=== PATIENT | male | born 1970 | race Caucasian/White ===

== ENCOUNTER → 2018-04-19 | Outpatient (CLI) | payer OTHER ==
--- NOTE | 2018-04-19 16:40 | US ---
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 NPO, No pain EXAM MEASUREMENTS: Liver Length: 17.6 cm Gallbladder Wall: 0.2 cm CBD: 0.4 cm CHD: 0.4 cm Right Kidney: 10.9 x 6.5 x 4.7 cm Pancreas: Main pancreatic duct= 2.3 mm which is upper limits of normal, normal proximal body 2 mm. Pancreas Appears echogenic in appearance. Liver: Liver size is enlarged, normal less than 15.5 cm. No prominent masses or lesions visualized Gallbladder: wnl, folds seen Evidence for sonographic Coffey's sign: neg CBD: wnl CHD: wnl Right Kidney: wnl IMPRESSION: 1. Slight prominence of the pancreatic duct. 2. Hepatomegaly
== END | disposition home or self-care (01) ==
LOC: RADUSWWP 09:26
PROVIDERS: ATTEND Physician Assistant
DX: R16.0 Hepatomegaly, not elsewhere classified (principal); B18.2 Chronic viral hepatitis C
CPT/HCPCS: 76705

== ENCOUNTER → 2018-07-18 | Outpatient (CLI) | payer BC ==
[2018-07-18 09:12] LABS: Basophils % (A) 0 %; Eosinophils # (A) 0.4 k/uL (0-0.7); Eosinophils % (A) 5 %; HCT 49.3 % (39.0-53.0); HGB 16.6 gm/dL (13.0-17.5); Lymphocytes % (A) 25 %; MCH 31.5 pg (25.0-35.0); MCHC 33.7 g/dL (31.0-37.0); MCV 93.5 fL (80.0-100.0); Mean Platelet Volume 8.9; Monocytes # (A) 0.4 k/uL (0-1.0); Monocytes % (A) 5 %; Neutrophils # (A) 4.9 k/uL (1.3-7.7); Neutrophils % (A) 63 %; Platelet Count 120 k/uL (150-450); RBC 5.27 m/uL (4.30-5.90); RDW 13.7 % (11.5-15.5); WBC 7.9 k/uL (3.8-10.6)
[2018-07-18 09:30] LABS: INR 1.1 (<1.2); Prothrombin Time 11.9 sec (9.0-12.0)
[2018-07-18 18:51] LABS: Albumin 4.5 g/dL (3.80-4.90); Albumin/Globulin Ratio 1.55 (1.60-3.17); Bilirubin, Conjugated 0.2 mg/dL (0.20-0.40); Bilirubin,Unconjugated 0.5 mg/dL; Globulin 2.9 g/dL (1.6-3.3); Total Bilirubin 0.7 mg/dL (0.3-1.2); Total Protein 7.4 g/dL (6.2-8.2)
[2018-07-19 15:11] LABS: Hepatits C Virus RNA DETECTED (Not detected); LOG HCV IU/mL 6.83 (<1.08)
== END | disposition home or self-care (01) ==
LOC: LABWHC1 08:21
PROVIDERS: ATTEND Physician Assistant
DX: B18.2 Chronic viral hepatitis C (principal)
CPT/HCPCS: 36415; 80076; 85025; 85610; 87522

== ENCOUNTER → 2018-11-01 | Outpatient (CLI) | payer BC ==
[2018-11-01 10:35] LABS: Basophils % (A) 1 %; Eosinophils # (A) 0.4 k/uL (0-0.7); Eosinophils % (A) 6 %; HCT 47.8 % (39.0-53.0); HGB 16.2 gm/dL (13.0-17.5); Lymphocytes # (A) 2.4 k/uL (1.0-4.8); Lymphocytes % (A) 37 %; MCH 30.6 pg (25.0-35.0); MCHC 33.8 g/dL (31.0-37.0); MCV 90.6 fL (80.0-100.0); Mean Platelet Volume 9.3; Monocytes # (A) 0.3 k/uL (0-1.0); Monocytes % (A) 5 %; Neutrophils # (A) 3.3 k/uL (1.3-7.7); Neutrophils % (A) 50 %; Platelet Count 129 k/uL (150-450); RBC 5.28 m/uL (4.30-5.90); RDW 14.7 % (11.5-15.5); WBC 6.5 k/uL (3.8-10.6)
[2018-11-01 16:29] LABS: ALT 25 U/L (10-49); AST 35 U/L (14-35); Albumin/Globulin Ratio 2.05 (1.60-3.17); Alkaline Phosphatase 72 U/L (41-126); Bilirubin, Conjugated <0.20 mg/dL (0.20-0.40); Globulin 2.2 g/dL (1.6-3.3); Total Bilirubin 0.4 mg/dL (0.2-1.2); Total Protein 6.7 g/dL (6.2-8.2)
[2018-11-02 14:39] LABS: Hepatits C Virus RNA DETECTED (Not detected); Hepatits C Virus RNA, Quant <12 IU/mL (<12); LOG HCV IU/mL <1.08 (<1.08)
== END ==
LOC: LABWHC1 09:37
PROVIDERS: ATTEND Physician Assistant
DX: B18.2 Chronic viral hepatitis C (principal)
CPT/HCPCS: 36415; 80076; 85025; 87522

== ENCOUNTER → 2019-02-20 | Outpatient (CLI) | payer BC ==
[2019-02-20 09:17] LABS: Basophils % (A) 0 %; Eosinophils # (A) 0.4 k/uL (0-0.7); Eosinophils % (A) 5 %; HCT 46.2 % (39.0-53.0); HGB 16.3 gm/dL (13.0-17.5); Lymphocytes # (A) 2.2 k/uL (1.0-4.8); Lymphocytes % (A) 28 %; MCH 32.5 pg (25.0-35.0); MCHC 35.4 g/dL (31.0-37.0); MCV 91.7 fL (80.0-100.0); Mean Platelet Volume 8.7; Monocytes # (A) 0.3 k/uL (0-1.0); Monocytes % (A) 4 %; Neutrophils # (A) 4.8 k/uL (1.3-7.7); Neutrophils % (A) 61 %; Platelet Count 127 k/uL (150-450); RBC 5.03 m/uL (4.30-5.90); WBC 7.9 k/uL (3.8-10.6)
[2019-02-20 15:56] LABS: ALT 26 U/L (10-49); AST 31 U/L (14-35); Albumin/Globulin Ratio 2.14 (1.60-3.17); Alkaline Phosphatase 70 U/L (41-126); Bilirubin, Conjugated <0.20 mg/dL (0.20-0.40); Globulin 2.1 g/dL (1.6-3.3); Total Bilirubin 0.3 mg/dL (0.2-1.2); Total Protein 6.6 g/dL (6.2-8.2)
[2019-02-21 13:42] LABS: Hepatits C Virus RNA Not detected (Not detected); Hepatits C Virus RNA, Quant <12 IU/mL (<12); LOG HCV IU/mL <1.08 (<1.08)
== END | disposition home or self-care (01) ==
LOC: LABWHC1 08:51
PROVIDERS: ATTEND Physician Assistant
DX: B18.2 Chronic viral hepatitis C (principal)
CPT/HCPCS: 36415; 80076; 82105; 85025; 87522

== ENCOUNTER 2020-08-30 19:06 | Emergency (ER) | payer BC, OTHER ==
[2020-08-30 19:36] VITALS: BP 142/98; PULSE 71; RESP 20; TEMP 98
[2020-08-30] MEDS ORDERED: DIPH,PERTUS(ACELL)TETVAC-LF 0.5 ML VIAL IM ONE (20:47)
--- NOTE | 2020-08-30 20:48 | ED ---
Wound/Laceration HPI - General Chief Complaint: Wound/Laceration Stated Complaint: Male Time Seen by Provider: 08/30/20 20:36 Source: patient Mode of arrival: ambulatory Limitations: no limitations - History of Present Illness Initial Comments: 50yo presenting for right scrotal laceration. pt states that he was shaving--when he knicked his right scrotum. denies additional complaints. bleeding controlled per patient. unsure of last tdap. - Related Data Previous Rx's Medication Instructions Recorded Cephalexin [Keflex] 500 mg PO Q8HR 7 Days #21 cap 08/30/20 Allergies Allergy/AdvReac Type Severity Reaction Status Date / Time No Known Allergies Allergy Verified 08/30/20 19:36 Review of Systems ROS Statement: Those systems with pertinent positive or pertinent negative responses have been documented in the HPI. ROS Other: All systems not noted in ROS Statement are negative. Past Medical History Past Medical History: Hypertension History of Any Multi-Drug Resistant Organisms: None Reported Past Surgical History: Orthopedic Surgery Additional Past Surgical History / Comment(s): rt shoulder Past Psychological History: Bipolar Smoking Status: Current every day smoker Past Alcohol Use History: None Reported Past Drug Use History: None Reported General Exam - General Exam Comments Initial Comments: General: The patient is awake and alert, in no distress, and does not appear acutely ill. Eye: Pupils are equal, round and reactive to light, extra-ocular movements are intact. No nystagmus. There is normal conjunctiva bilaterally. No signs of icterus. Cardiovascular: There is a regular rate and rhythm. No murmur, rub or gallop is appreciated. Respiratory: Lungs are clear to auscultation, respirations are non-labored, breath sounds are equal. No wheezes, stridor, rales, or rhonchi. Gastrointestinal: Soft, non-distended, non-tender abdomen without masses or organomegaly noted. There is no rebound or guarding present. : superficial skin flap < 1 cm circular right scrotum. Musculoskeletal: Normal ROM, no tenderness. Strength 5/5. Sensation intact. Pulses equal bilaterally 2+. Neurological: A&O x 3. CN II-XII intact, There are no obvious motor or sensory deficits. Coordination appears grossly intact. Speech is normal. Skin: Skin is warm and dry and no rashes grossly or lesions are noted. Psychiatric: Cooperative, appropriate mood & affect, normal judgment. Limitations: no limitations Course Vital Signs 08/30/20 19:33 Temperature 98.0 F Pulse Rate 71 Respiratory 20 Rate Blood Pressure 142/98 O2 Sat by Pulse 92 L Oximetry Medical Decision Making - Medical Decision Making 50yo male presenting for cc of scrotal laceration. superficial skin tear. no evidence of deeper injury. no repair needed recommend topical care and f/u if develop redness/signs of infection. pt discharged appearing well. Dr Reich agreeable to care plan. Disposition Clinical Impression: Laceration of scrotum Disposition: HOME SELF-CARE Condition: Good Instructions (If sedation given, give patient instructions): Skin Tear (ED) Additional Instructions: Please use medication as discussed. Please follow-up with family doctor in the next 2 days. Please return to emergency room if the symptoms increase or worsen or for any other concerns. Prescriptions: Cephalexin [Keflex] 500 mg PO Q8HR 7 Days #21 cap Is patient prescribed a controlled substance at d/c from ED?: No Referrals: Flakito Pritchett MD [Primary Care Provider] - 1-2 days Time of Disposition: 20:48
== END 2020-08-30 21:12 | disposition home or self-care (01) ==
LOC: EC 19:06
DX: S31.31XA Laceration without foreign body of scrotum and testes, initial encounter (principal); I10 Essential (primary) hypertension; F31.9 Bipolar disorder, unspecified; F17.200 Nicotine dependence, unspecified, uncomplicated; W26.9XXA Contact with unspecified sharp object(s), initial encounter
CPT/HCPCS: 90471; 90715; 99282

== ENCOUNTER 2020-09-02 08:40 | Emergency (ER) | payer OTHER ==
[2020-09-02 08:45] VITALS: BP 128/99; PULSE 89; RESP 18; TEMP 98
--- NOTE | 2020-09-02 09:08 | ED ---
Nausea/Vomiting/Diarrhea HPI - General Chief complaint: Nausea/Vomiting/Diarrhea Stated complaint: fever/vomiting Time Seen by Provider: 09/02/20 08:46 Source: patient Mode of arrival: ambulatory Limitations: no limitations - History of Present Illness Initial comments: 50-year-old male presenting for chief complaint of nausea chills-sent by work for covid test. pt states that he was nauseated at work feeling like he was going to vomit, he states he had chills at that time but no other associated symptoms. Denies recorded fevers, cough, congestion, abdominal pain, diarrhea, sore throat, rashes. Patient states he needed a test to go back to work. pt states he was not super concerned about the symptoms as he feels he has had this before and it has just gone away. pt has no additional complaints. remaining ROS (-). - Related Data Previous Rx's Medication Instructions Recorded Cephalexin [Keflex] 500 mg PO Q8HR 7 Days #21 cap 08/30/20 Allergies Allergy/AdvReac Type Severity Reaction Status Date / Time No Known Allergies Allergy Verified 09/02/20 08:41 Review of Systems ROS Statement: Those systems with pertinent positive or pertinent negative responses have been documented in the HPI. ROS Other: All systems not noted in ROS Statement are negative. Past Medical History Past Medical History: Hypertension, Prostate Disorder History of Any Multi-Drug Resistant Organisms: None Reported Past Surgical History: Orthopedic Surgery Additional Past Surgical History / Comment(s): rt shoulder Past Psychological History: Bipolar Smoking Status: Current every day smoker Past Alcohol Use History: None Reported Past Drug Use History: None Reported General Exam - General Exam Comments Initial Comments: General: The patient is awake and alert, in no distress, and does not appear acutely ill. Eye: Pupils are equal, round and reactive to light, extra-ocular movements are intact. No nystagmus. There is normal conjunctiva bilaterally. No signs of icterus. Gastrointestinal: Soft, non-distended, non-tender abdomen without masses or organomegaly noted. There is no rebound or guarding present. Musculoskeletal: Normal ROM, no tenderness. Strength 5/5. Sensation intact. Radial and DP pulses equal bilaterally 2+. Neurological: A&O x 3. CN II-XII intact grossly, There are no obvious motor or sensory deficits. Coordination appears grossly intact. Speech is normal. Skin: Skin is warm and dry and no rashes or lesions are noted. Psychiatric: Cooperative, appropriate mood & affect, normal judgment. Limitations: no limitations Course Vital Signs 09/02/20 08:41 Temperature 98 F Pulse Rate 89 Respiratory 18 Rate Blood Pressure 128/99 O2 Sat by Pulse 95 Oximetry Medical Decision Making - Medical Decision Making patient presenting for covid testing due to nausea, vomiting. patient not actively vomiting. no chest pain, dyspnea, cough, abdominal pain or fevers. pt appears nontoxic. swabbed and will be called with results. told to quarantine until results are bck. patient agreeable to care plan and discharge. Disposition Clinical Impression: Chills, Vomiting, Nausea Disposition: HOME SELF-CARE Condition: Good Instructions (If sedation given, give patient instructions): Acute Nausea and Vomiting (ED) Additional Instructions: Please use medication as discussed. Please follow-up with family doctor in the next 2 days.. Please return to emergency room if the symptoms increase or worsen or for any other concerns. Is patient prescribed a controlled substance at d/c from ED?: No Referrals: Flakito Pritchett MD [Primary Care Provider] - 1-2 days Time of Disposition: 09:08
[2020-09-02] MEDS ORDERED: ONDANSETRON ODT 4 MG TAB PO STA (09:18)
== END 2020-09-02 09:24 | disposition home or self-care (01) ==
LOC: EC 08:40
DX: R11.2 Nausea with vomiting, unspecified (principal); R68.83 Chills (without fever); F17.200 Nicotine dependence, unspecified, uncomplicated
CPT/HCPCS: 87635; 99283

== ENCOUNTER 2020-09-30 21:49 | Inpatient (IN) | payer MEDICAID, OTHER ==
[2020-09-30] MEDS ORDERED: ONDANSETRON ODT 4 MG TAB PO STA (22:16)
[2020-09-30] MEDS ORDERED: DICYCLOMINE 10 MG/ML 2 ML AMP IM STA (22:16)
--- NOTE | 2020-09-30 22:16 | ED ---
Psych HPI - General Chief Complaint: Psychiatric Symptoms Stated Complaint: Mental Health Time Seen by Provider: 09/30/20 21:53 Source: patient, EMS, RN notes reviewed, old records reviewed Mode of arrival: EMS Limitations: no limitations - History of Present Illness Initial Comments: This is a 50-year-old male DF for evaluation patient Dese for evaluation of psychiatric illness. Persistent depression suicidal thoughts she does have active thoughts of harming himself. Patient does abuse drugs patient does have history of bipolar disease MD Complaint: suicidal ideation, feels depressed -: unknown Associated Psychiatric Symptoms: depression, suicidal ideation Quality: constant Improves With: none Worsens With: drug use Context: recent drug abuse, not taking psychiatric medications, significant life stressor Associated Symptoms: denies other symptoms Treatments Prior to Arrival: placed on mental health hold If Self Harm: admits thoughts of self harm - Related Data Home Medications Medication Instructions Recorded Confirmed Atorvastatin [Lipitor] 40 mg PO DAILY 10/01/20 10/01/20 Diclofenac Sodium [Voltaren] 75 mg PO AC-BID 10/01/20 10/01/20 Losartan [Cozaar] 50 mg PO DAILY 10/01/20 10/01/20 Metoprolol Succinate (ER) [Toprol 50 mg PO DAILY 10/01/20 10/01/20 Xl] Pantoprazole Sodium [Protonix] 40 mg PO AC-BRKFST 10/01/20 10/01/20 QUEtiapine [SEROquel] 100 mg PO HS 10/01/20 10/01/20 Tamsulosin HCl [Flomax] 0.4 mg PO DAILY 10/01/20 10/01/20 valACYclovir HCL [Valtrex] 1,000 mg PO DAILY 10/01/20 10/01/20 Allergies Allergy/AdvReac Type Severity Reaction Status Date / Time No Known Allergies Allergy Verified 10/01/20 11:53 Review of Systems ROS Statement: Those systems with pertinent positive or pertinent negative responses have been documented in the HPI. ROS Other: All systems not noted in ROS Statement are negative. Past Medical History Past Medical History: Hypertension, Prostate Disorder Additional Past Medical History / Comment(s): colon polyps History of Any Multi-Drug Resistant Organisms: None Reported Past Surgical History: Orthopedic Surgery Additional Past Surgical History / Comment(s): rt shoulder Past Psychological History: Bipolar Smoking Status: Current every day smoker Past Alcohol Use History: None Reported Past Drug Use History: Cocaine, Methamphetamine General Exam Limitations: no limitations General appearance: alert, in no apparent distress, anxious Head exam: Present: atraumatic, normocephalic, normal inspection Eye exam: Present: normal appearance, PERRL, EOMI. Absent: scleral icterus, conjunctival injection, periorbital swelling ENT exam: Present: normal exam, mucous membranes moist Neck exam: Present: normal inspection. Absent: tenderness, meningismus, lymphadenopathy Respiratory exam: Present: normal lung sounds bilaterally. Absent: respiratory distress, wheezes, rales, rhonchi, stridor Cardiovascular Exam: Present: regular rate, normal rhythm, normal heart sounds. Absent: systolic murmur, diastolic murmur, rubs, gallop, clicks GI/Abdominal exam: Present: soft, normal bowel sounds. Absent: distended, tenderness, guarding, rebound, rigid Extremities exam: Present: normal inspection, full ROM, normal capillary refill. Absent: tenderness, pedal edema, joint swelling, calf tenderness Back exam: Present: normal inspection Neurological exam: Present: alert, oriented X3, CN II-XII intact Psychiatric exam: Present: normal affect, normal mood Skin exam: Present: warm, dry, intact, normal color. Absent: rash Course Vital Signs 09/30/20 10/01/20 21:50 03:00 Temperature 98.4 F 98.3 F Pulse Rate 111 H 81 Respiratory 20 20 Rate Blood Pressure 102/80 110/72 O2 Sat by Pulse 100 97 Oximetry - Reevaluation(s) Reevaluation #1: 10/01/20 00:12 medical record is reviewed Reevaluation #2: 10/01/20 00:12 medically clear for psychiatric evaluation Reevaluation #3: 10/01/20 00:12 patient is with abdominal pain, persistent cramping feeling better with medications Medical Decision Making - Medical Decision Making 50 male will be admitted for psychiatric evaluation and treatment - Lab Data Result diagrams: 10/01/20 07:00 10/01/20 07:00 Lab Results 09/30/20 10/01/20 Range/Units 23:16 01:10 Urine Opiates Screen Not Detected (NotDetected) Ur Oxycodone Screen Not Detected (NotDetected) Urine Methadone Screen Not Detected (NotDetected) Ur Propoxyphene Screen Not Detected (NotDetected) Ur Barbiturates Screen Not Detected (NotDetected) U Tricyclic Antidepress Not Detected (NotDetected) Ur Phencyclidine Scrn Not Detected (NotDetected) Ur Amphetamines Screen Not Detected (NotDetected) U Methamphetamines Scrn Detected H (NotDetected) U Benzodiazepines Scrn Not Detected (NotDetected) Urine Cocaine Screen Detected H (NotDetected) U Marijuana (THC) Screen Not Detected (NotDetected) Coronavirus (PCR) Not Detected (Not Detectd) Disposition Clinical Impression: Depression, Suicidal ideation Disposition: TRANSFER TO PSYCH HOSP/UNIT Condition: Fair Is patient prescribed a controlled substance at d/c from ED?: No
[2020-10-01 00:26] LABS: Amphetamine Screen,Urine Not Detected (NotDetected); Barbiturate Screen,Urine Not Detected (NotDetected); Benzodiazepines Screen,Urine Not Detected (NotDetected); Cocaine Screen,Urine Detected (NotDetected); Methadone Screen, Urine Not Detected (NotDetected); Opiate Screen,Urine Not Detected (NotDetected); Oxycodone Screen, Urine Not Detected (NotDetected); Phencyclidine Screen,Urine Not Detected (NotDetected); Tricyclic Antidepressant,Urine Not Detected (NotDetected); Urn Cannabinoid Scrn Not Detected (NotDetected)
[2020-10-01] MEDS ORDERED: ACETAMINOPHEN TAB 325 MG TAB PO PRN (02:02)
[2020-10-01] MEDS: LORazepam 1 MG TAB PO PRN ×3 (04:09→19:15)
[2020-10-01 07:54] LABS: Basophils # (A) 0.1 k/uL (0-0.2); Basophils % (A) 1 %; Eosinophils # (A) 0.5 k/uL (0-0.7); Eosinophils % (A) 6 %; HGB 16.1 gm/dL (13.0-17.5); Lymphocytes # (A) 1.8 k/uL (1.0-4.8); Lymphocytes % (A) 21 %; MCH 32.5 pg (25.0-35.0); MCV 92.9 fL (80.0-100.0); Mean Platelet Volume 9.1; Monocytes # (A) 0.6 k/uL (0-1.0); Monocytes % (A) 6 %; Neutrophils # (A) 5.7 k/uL (1.3-7.7); Neutrophils % (A) 65 %; Platelet Count 128 k/uL (150-450); RBC 4.95 m/uL (4.30-5.90); RDW 13.2 % (11.5-15.5); WBC 8.7 k/uL (3.8-10.6)
[2020-10-01] MEDS ORDERED: MAG HYDROX/AL HYDROX/SIMETH 30 ML CUP PO PRN (08:00)
[2020-10-01 08:05] LABS: ALT 266 U/L (4-49); AST 203 U/L (17-59); African American GFR (CKD) >90 (>60 ml/min/1.73 sqM); Albumin 4.3 g/dL (3.5-5.0); Alkaline Phosphatase 62 U/L (38-126); Anion Gap 6 mmol/L; Blood Urea Nitrogen 11 mg/dL (9-20); Calcium 9.6 mg/dL (8.4-10.2); Carbon Dioxide 28 mmol/L (22-30); Chloride 108 mmol/L (98-107); Cholesterol 107 mg/dL (<200); Glucose 101 mg/dL (74-99); HDL Cholesterol 40 mg/dL (40-60); LDL Cholesterol,Calculated 50 mg/dL (0-99); Non-African American GFR(CKD) >90 (>60 ml/min/1.73 sqM); Potassium 4.3 mmol/L (3.5-5.1); Sodium 142 mmol/L (137-145); Total Bilirubin 1.1 mg/dL (0.2-1.3); Total Protein 7.5 g/dL (6.3-8.2); Triglycerides 87 mg/dL (<150)
[2020-10-01] MEDS ORDERED: MAGNESIUM HYDROXIDE 2,400 MG/10 ML CUP PO PRN (09:00)
[2020-10-01] MEDS: NICOTINE 14MG/24HR PATCH TRANSDERM SCH (10:07)
[2020-10-01] MEDS ORDERED: haloperidoL 5 MG TAB PO PRN (11:49)
[2020-10-01] MEDS ORDERED: HALOPERIDOL LACTATE 5 MG/ML 1 ML VIAL IM PRN (11:49)
--- NOTE | 2020-10-01 11:59 | P.HP ---
Psychiatric H&P - . H&P Date: 10/01/20 History & Physical: Allergies Allergy/AdvReac Type Severity Reaction Status Date / Time No Known Allergies Allergy Verified 09/30/20 21:56 Vital Signs Temp 97.7 F 10/01/20 04:17 Pulse 87 10/01/20 04:17 Resp 20 10/01/20 04:17 BP 120/88 10/01/20 04:17 Pulse Ox 94 L 10/01/20 04:17 Intake & Output 09/30/20 10/01/20 10/01/20 18:59 06:59 18:59 Weight 102.512 kg Laboratory Last Values WBC 8.7 k/uL (3.8-10.6) 10/01/20 07:00 RBC 4.95 m/uL (4.30-5.90) 10/01/20 07:00 Hgb 16.1 gm/dL (13.0-17.5) 10/01/20 07:00 Hct 46.0 % (39.0-53.0) 10/01/20 07:00 MCV 92.9 fL (80.0-100.0) 10/01/20 07:00 MCH 32.5 pg (25.0-35.0) 10/01/20 07:00 MCHC 35.0 g/dL (31.0-37.0) 10/01/20 07:00 RDW 13.2 % (11.5-15.5) 10/01/20 07:00 Plt Count 128 k/uL (150-450) L 10/01/20 07:00 MPV 9.1 10/01/20 07:00 Neutrophils % 65 % 10/01/20 07:00 Lymphocytes % 21 % 10/01/20 07:00 Monocytes % 6 % 10/01/20 07:00 Eosinophils % 6 % 10/01/20 07:00 Basophils % 1 % 10/01/20 07:00 Neutrophils # 5.7 k/uL (1.3-7.7) 10/01/20 07:00 Lymphocytes # 1.8 k/uL (1.0-4.8) 10/01/20 07:00 Monocytes # 0.6 k/uL (0-1.0) 10/01/20 07:00 Eosinophils # 0.5 k/uL (0-0.7) 10/01/20 07:00 Basophils # 0.1 k/uL (0-0.2) 10/01/20 07:00 Sodium 142 mmol/L (137-145) 10/01/20 07:00 Potassium 4.3 mmol/L (3.5-5.1) 10/01/20 07:00 Chloride 108 mmol/L (98-107) H 10/01/20 07:00 Carbon Dioxide 28 mmol/L (22-30) 10/01/20 07:00 Anion Gap 6 mmol/L 10/01/20 07:00 BUN 11 mg/dL (9-20) 10/01/20 07:00 Creatinine 0.94 mg/dL (0.66-1.25) 10/01/20 07:00 Est GFR (CKD-EPI)AfAm >90 (>60 ml/min/1.73 sqM) 10/01/20 07:00 Est GFR (CKD-EPI)NonAf >90 (>60 ml/min/1.73 sqM) 10/01/20 07:00 Glucose 101 mg/dL (74-99) H 10/01/20 07:00 Calcium 9.6 mg/dL (8.4-10.2) 10/01/20 07:00 Total Bilirubin 1.1 mg/dL (0.2-1.3) 10/01/20 07:00 AST 203 U/L (17-59) H 10/01/20 07:00 ALT 266 U/L (4-49) H 10/01/20 07:00 Alkaline Phosphatase 62 U/L (38-126) 10/01/20 07:00 Total Protein 7.5 g/dL (6.3-8.2) 10/01/20 07:00 Albumin 4.3 g/dL (3.5-5.0) 10/01/20 07:00 Triglycerides 87 mg/dL (<150) 10/01/20 07:00 Cholesterol 107 mg/dL (<200) 10/01/20 07:00 LDL Cholesterol, Calc 50 mg/dL (0-99) 10/01/20 07:00 HDL Cholesterol 40 mg/dL (40-60) 10/01/20 07:00 TSH 0.958 mIU/L (0.465-4.680) 10/01/20 07:00 Urine Opiates Screen Not Detected (NotDetected) 09/30/20 23:16 Ur Oxycodone Screen Not Detected (NotDetected) 09/30/20 23:16 Urine Methadone Screen Not Detected (NotDetected) 09/30/20 23:16 Ur Propoxyphene Screen Not Detected (NotDetected) 09/30/20 23:16 Ur Barbiturates Screen Not Detected (NotDetected) 09/30/20 23:16 U Tricyclic Antidepress Not Detected (NotDetected) 09/30/20 23:16 Ur Phencyclidine Scrn Not Detected (NotDetected) 09/30/20 23:16 Ur Amphetamines Screen Not Detected (NotDetected) 09/30/20 23:16 U Methamphetamines Scrn Detected (NotDetected) H 09/30/20 23:16 U Benzodiazepines Scrn Not Detected (NotDetected) 09/30/20 23:16 Urine Cocaine Screen Detected (NotDetected) H 09/30/20 23:16 U Marijuana (THC) Screen Not Detected (NotDetected) 09/30/20 23:16 Coronavirus (PCR) Not Detected (Not Detectd) 10/01/20 01:10 10/01/20 11:51 IDENTIFYING DATA: Patient is a 50-year-old male who is currently living at a three-quarter house, is and has no kids and 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 HPI: Patient presented to the hospital yesterday and was complaining of depression and suicidal thoughts in the ER. Patient admitted to having not taken his medications at home and patient's UDS was positive for methamphetamine and cocaine. His liver function tests were elevated. Patient was seen today on the unit and agreeable to seek drug in the office. He had claimed that he "relapsed on crack and math" and states that he was sober for 90 days beforehand. He states that he used for only 1 day approximately $150 worth of drugs combined. He states that he became paranoid afterwards in the hotel that he was staying at and call the garment inspector to check on the back window as he believes that someone was trying to get into his place. He states that he felt "stupid" and claims that he came to the hospital afterwards to seek help. He states that he is feeling depressed and irritable and "cranky" today. He appeared to be fairly impulsive and states that he has a history of bipolar disorder and stopped taking his Seroquel about 3 months ago. He states that he does have some anxiety. He is denying any paranoia at this time. He states that his sleep has been fair and appetite as been poor. Patient denies any suicidal or homicidal ideations intent or plan. At this time patient denies any auditory or visual hallucinations. Patient denies any flight of ideas racing thoughts and increased in goal directed behavior. Patient admits to using methamphetamine and cocaine as listed above. He states that he does smoke cigarettes daily. PAST PSYCHIATRIC HISTORY: Patient states that he has a history of bipolar d isorder. He claimed that he has been on a high dose of Seroquel in the past however that has made him too lethargic however did control his symptoms. He states that he has been hospitalized several times in the past however his last psychiatric hospitalization was in [place] over a year ago. Patient denies any psychiatric outpatient follow-up. Patient denies any history of suicide attempts in the past. PMH: Hypertension and prostate disorder ALLERGIES: as per EMR CHEMICAL DEPENDENCY HISTORY: as per HPI FAMILY PSYCHIATRIC/SUBSTANCE USE HISTORY: Claims that his mother has bipolar disorder SOCIAL HISTORY: Patient was born and raised in [facility]. He states that he completed his GED after dropping out of school. He claims that he has had several legal problems in the past and has been to skilled nursing and senior living including for larceny, robbery and assault. 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 MENTAL STATUS EXAM: General Appearance: Patient appears to be tall, well-built, stated age is alert, directable, yet is irritable at times. Patient appears to have poor hygiene and grooming. Behavior: Patient is seated without any agitated behavior. Irritable at times Speech: Patient's speech is fluent and nonpressured. Mood/Affect: Patient reports their mood is depressed and irritable, affect is congruent Suicidality/Homicidality: Patient denies having any homicidal ideation intent or plan. Denies any suicidal ideations intent or plan Perceptions: Patient denies any visual hallucinations and denies any auditory hallucinations Though content/process: There is no evidence of any delusional thought content and thought process is linear and goal-directed. Memory and concentration: AOX3, grossly intact for the purposes of this session. Can spell "WORLD" backwards Judgment and insight: poor STRENGTHS/WEAKNESSES: strength is that patient is resilient. Weakness is that patient has poor judgment and is impulsive INTELLECT: average IMPRESSIONS: Bipolar disorder, currently depressed Methamphetamine abuse Cocaine abuse Nicotine dependence PLAN: -Patient is admitted under voluntary status to MHU for stabilization of psychiatric symptoms and safety. Patient has signed adult voluntary form and medication consent and is placed in patient's chart. -Medications : Will start patient on Seroquel 100 mg daily at bedtime for mood stabilization/depression/insomnia. -Ativan and Haldol PRN for agitation/aggression -Patient was counselled on substance abuse and desired to cut back on use -Patient was informed of the risks, benefits and side effects of the medication and patient verbally consented to taking the medications. Patient signed med consent form and was placed in chart. -Internal Medicine consult to perform medical evaluation and physical. -NRT - nicotine patch -SW on board for discharge planning. Encourage patient to participate in groups to work on coping skills. Patient will likely be going back to the three- quarter house upon discharge. Likely discharge in 2-3 days. 10/01/20 11:55
[2020-10-01] MEDS ORDERED: traZODone HCL 50 MG TAB PO PRN (21:00)
[2020-10-01] MEDS ORDERED: QUEtiapine 100 MG TAB PO SCH (21:00)
[2020-10-01 23:39] LABS: Estimated Average Glucose 108.28; Hemoglobin A1C 5.4 % (4.0-6.0)
--- NOTE | 2020-10-02 01:39 | P.CONS ---
History of Present Illness - Reason for Consult Consult date: 10/02/20 - History of Present Illness Patient is a 50-year-old male with a PMH of hypertension, hyperlipidemia, and depression who presented to the emergency room with complaints of depression and suicidal ideation. The patient was admitted to mental health unit where he was seen and evaluated. The patient reports that he continues to feel depressed but denied any additional complaints. He denied smoking tobacco or IV drug use. He also denied chest discomfort, shortness of breath, fever, chills, nausea, vomiting, abdominal pain, diarrhea. He reports compliance with his medications at home. Review of Systems Pertinent positives and negatives as discussed in HPI, a complete review of systems was performed and all other systems are negative. Past Medical History Past Medical History: Hypertension, Prostate Disorder Additional Past Medical History / Comment(s): colon polyps History of Any Multi-Drug Resistant Organisms: None Reported Past Surgical History: Orthopedic Surgery Additional Past Surgical History / Comment(s): rt shoulder Past Anesthesia/Blood Transfusion Reactions: No Reported Reaction Smoking Status: Current every day smoker Medications and Allergies Home Medications Medication Instructions Recorded Confirmed Type Atorvastatin [Lipitor] 40 mg PO DAILY 10/01/20 10/01/20 History Diclofenac Sodium [Voltaren] 75 mg PO AC-BID 10/01/20 10/01/20 History Losartan [Cozaar] 50 mg PO DAILY 10/01/20 10/01/20 History Metoprolol Succinate (ER) [Toprol 50 mg PO DAILY 10/01/20 10/01/20 History Xl] Pantoprazole Sodium [Protonix] 40 mg PO AC-BRKFST 10/01/20 10/01/20 History QUEtiapine [SEROquel] 100 mg PO HS 10/01/20 10/01/20 History Tamsulosin HCl [Flomax] 0.4 mg PO DAILY 10/01/20 10/01/20 History valACYclovir HCL [Valtrex] 1,000 mg PO DAILY 10/01/20 10/01/20 History Allergies Allergy/AdvReac Type Severity Reaction Status Date / Time No Known Allergies Allergy Verified 10/01/20 11:53 Physical Exam Vitals: Vital Signs Temp Pulse Pulse Pulse Resp BP BP 10/01/20 20:29 98.2 F 99 20 133/78 10/01/20 15:14 104 H 16 10/01/20 04:17 97.7 F 87 20 10/01/20 03:00 98.3 F 81 20 110/72 BP Pulse Ox 10/01/20 20:29 10/01/20 15:14 115/70 10/01/20 04:17 120/88 94 L 10/01/20 03:00 97 General: non toxic, no distress, appears at stated age, overweight Derm: no unusual rashes/lesions no unusual ecchymoses, warm, dry Head: atraumatic, normocephalic, symmetric Eyes: EOMI, no lid lag, anicteric sclera, pupils equal round reactive to light ENT: Nose and ears atraumatic, no thrush, no pharyngeal erythema Neck: No thyromegaly, no cervical lymphadenopathy, trachea midline, supple Mouth: no lip lesion, mucus membranes moist Cardiovascular: S1S2 reg, no murmur, positive posterior tibial pulse bilateral, no edema, capillary refill less than 2 seconds Lungs: CTA bilateral, no rhonchi, no rales , no accessory muscle use Abdominal: soft, nontender to palpation, no guarding, no appreciable organomegaly, normal bowel sounds Ext: no gross muscle atrophy, muscle strength 5 out of 5 in all 4 extremities grossly, no contractures, Neuro: CN II-XI grossly intact, light touch intact all 4 extremities, finger to nose within normal limits, Psych: Alert, oriented, appropriate affect Results CBC & Chem 7: 10/01/20 07:00 10/01/20 07:00 Labs: Abnormal Lab Results - Last 24 Hours (Table) 10/01/20 10/01/20 Range/Units 07:00 07:00 Plt Count 128 L (150-450) k/uL Chloride 108 H (98-107) mmol/L Glucose 101 H (74-99) mg/dL AST 203 H (17-59) U/L ALT 266 H (4-49) U/L Assessment and Plan Plan: Hypertension, hyperlipidemia -Continue with home medications Depression with suicidal ideation -As per psychiatry Thrombocytopenia -At baseline Polysubstance abuse -Advised on the importance of cessation Thank you for allowing us to participate in the care of this patient. We will follow peripherally. Do not hesitate to contact us with questions. Someone can be reached from the [facility] hospitalist group at all hours of the day at [phone].
[2020-10-02] MEDS ORDERED: BENZOCAINE/MENTHOL LOZENG 1 EACH LOZENGE MUCOUS MEM PRN (04:31)
[2020-10-02 06:54] VITALS: RESP 16
[2020-10-02] MEDS: ETODOLAC 400 MG TAB PO SCH ×2 (08:38→18:00)
[2020-10-02] MEDS: METOPROLOL SUCCINATE (ER) 50 MG TAB.ER.24H PO SCH (08:39)
[2020-10-02] MEDS: PANTOPRAZOLE 40 MG TABLET PO SCH (08:39)
[2020-10-02] MEDS: TAMSULOSIN 0.4 MG CAP.ER.24H PO SCH (08:39)
[2020-10-02] MEDS: ATORVASTATIN 40 MG TAB PO SCH (08:39)
[2020-10-02] MEDS: valACYclovir HCL 1,000 MG TABLET PO SCH (08:39)
[2020-10-02] MEDS: NICOTINE 14MG/24HR PATCH TRANSDERM SCH (08:39)
[2020-10-02] MEDS: LOSARTAN 50 MG TAB PO SCH (08:39)
[2020-10-02] MEDS: LORazepam 1 MG TAB PO PRN ×2 (08:41→17:22)
[2020-10-02] MEDS: guaiFENesin 600 MG TABLET.ER PO PRN ×2 (08:41→21:52)
--- NOTE | 2020-10-02 12:04 | P.PN ---
Progress Note - Text Progress Note Date: 10/02/20 Interval History: Patient was seen lying in his bed this morning and was directable and agreeable to speak with marketing copywriter in the office. Patient appears to be mildly lethargic today and claims that he did not sleep very well last night. He states that he has frequent awakenings. He claims that he is feeling a bit calmer today and less irritable compared to yesterday. He spoke once again about feeling embarrassed and regrets his relapse. He claims that he is still feeling depressed at this time however is denying any anxiety. He claims that he has not been going to groups thus far. He has a increasing appetite. At this time patient denies any suicidal or homical ideations, intent or plan. Patient denies any auditory, visual hallucinations and denies any paranoia or delusions. Patient denies any side effects from the medications and has been compliant with meds. Mental Status Exam: General Appearance: Patient appears to be tall, well-built, stated age is alert, directable, less irritable today. Patient appears to have poor hygiene and grooming. Behavior: Patient is seated without any agitated behavior. Less irritable today Speech: Patient's speech is fluent and nonpressured. Mood/Affect: Patient reports their mood is depressed and less irritable today, affect is congruent and constricted Suicidality/Homicidality: Patient denies having any homicidal ideation intent or plan. Denies any suicidal ideations intent or plan Perceptions: Patient denies any visual hallucinations and denies any auditory hallucinations Though content/process: There is no evidence of any delusional thought content and thought process is linear and goal-directed. [place] Memory and concentration: AOX3, grossly intact for the purposes of this session. Judgment and insight: poor, improving mildly Assessment Bipolar disorder, currently depressed Methamphetamine abuse Cocaine abuse Nicotine dependence Plan: -Patient continues to meet criteria for inpatient psychiatric admission for symptom stabilization and safety. Patient has signed adult voluntary form and medication consent and was placed in patient's chart. -Medications: Increase Seroquel to 200 mg daily at bedtime for mood stabilization/depression/insomnia. -When necessary Ativan and Haldol for agitation/aggression. -NRT - nicotine patch -SW on board for discharge planning. Encouraged the patient to participate in milieu. likely discharge back to [address] [place] [address] on wednesday.
[2020-10-02] MEDS ORDERED: hydrOXYzine pamoate 25 MG CAP PO PRN (13:58)
[2020-10-02] MEDS: QUEtiapine 200 MG TAB PO SCH (20:54)
[2020-10-03] MEDS: ETODOLAC 400 MG TAB PO SCH ×2 (08:17→18:36)
[2020-10-03] MEDS: ATORVASTATIN 40 MG TAB PO SCH (08:18)
[2020-10-03] MEDS: LOSARTAN 50 MG TAB PO SCH (08:18)
[2020-10-03] MEDS: PANTOPRAZOLE 40 MG TABLET PO SCH (08:18)
[2020-10-03] MEDS: TAMSULOSIN 0.4 MG CAP.ER.24H PO SCH (08:18)
[2020-10-03] MEDS: NICOTINE 14MG/24HR PATCH TRANSDERM SCH (08:18)
[2020-10-03] MEDS: METOPROLOL SUCCINATE (ER) 50 MG TAB.ER.24H PO SCH (08:18)
[2020-10-03] MEDS: valACYclovir HCL 1,000 MG TABLET PO SCH (08:18)
[2020-10-03] MEDS: guaiFENesin 600 MG TABLET.ER PO PRN (08:19)
[2020-10-03] MEDS: LORazepam 1 MG TAB PO PRN ×2 (08:19→15:56)
--- NOTE | 2020-10-03 11:33 | P.PN ---
Progress Note - Text Progress Note Date: 10/03/20 Interval History: Patient was seen lying in his bed this morning and was directable and agreeable to speak with gag writer. Patient preferred today to speak in his room. He claims that he is feeling tired this morning however claims that he slept better last night on the increase in his Seroquel. He states that he spoke with his girlfriend yesterday over the phone who is supportive of him and wants to know when he is going to be released. We spoke about potential discharge tomorrow as patient had many questions about this. He states that his mood is feeling "still depressed" and also spoke about having anxiety today. Patient claims that he is willing to be started on an antidepressant for his mood and anxiety. He claims that he has not been going to groups thus far. He has a increasing appetite. At this time patient denies any suicidal or homical ideations, intent or plan. Patient denies any auditory, visual hallucinations and denies any paranoia or delusions. Patient denies any side effects from the medications and has been compliant with meds. Mental Status Exam: General Appearance: Patient appears to be tall, well-built, stated age is alert, directable, less irritable today. Patient appears to have improving hygiene and grooming. Behavior: Patient is seated without any agitated behavior. Speech: Patient's speech is fluent and nonpressured. Mood/Affect: Patient reports their mood is anxious and depressed, improving mildly, affect is congruent and constricted Suicidality/Homicidality: Patient denies having any homicidal ideation intent or plan. Denies any suicidal ideations intent or plan Perceptions: Patient denies any visual hallucinations and denies any auditory hallucinations Though content/process: There is no evidence of any delusional thought content and thought process is linear and goal-directed. [place] Memory and concentration: AOX3, grossly intact for the purposes of this session. Judgment and insight: poor, improving mildly Assessment Bipolar disorder, currently depressed Methamphetamine abuse Cocaine abuse Nicotine dependence Plan: -Patient continues to meet criteria for inpatient psychiatric admission for symptom stabilization and safety. Patient has signed adult voluntary form and medication consent and was placed in patient's chart. -Medications: Continue with Seroquel to 200 mg daily at bedtime for mood stabilization/depression/insomnia. Added zoloft 50mg daily for mood/anxiety -When necessary Ativan and Haldol for agitation/aggression. -NRT - nicotine patch -SW on board for discharge planning. Encouraged the patient to participate in milieu. likely discharge back to [facility] tomorrow.
[2020-10-03] MEDS ORDERED: DULoxetine HCL 30 MG CAPSULE.DR PO SCH (12:00)
[2020-10-03] MEDS: SERTRALINE 50 MG TAB PO SCH (12:19)
[2020-10-03] MEDS: QUEtiapine 200 MG TAB PO SCH (22:13)
[2020-10-04] MEDS: LORazepam 1 MG TAB PO PRN ×2 (00:33→08:12)
[2020-10-04 01:24] VITALS: BP 126/56; PULSE 72; TEMP 98
[2020-10-04] MEDS: NICOTINE 14MG/24HR PATCH TRANSDERM SCH (08:11)
[2020-10-04] MEDS: ETODOLAC 400 MG TAB PO SCH (08:12)
[2020-10-04] MEDS: LOSARTAN 50 MG TAB PO SCH (08:12)
[2020-10-04] MEDS: SERTRALINE 50 MG TAB PO SCH (08:12)
[2020-10-04] MEDS: PANTOPRAZOLE 40 MG TABLET PO SCH (08:13)
[2020-10-04] MEDS: valACYclovir HCL 1,000 MG TABLET PO SCH (08:13)
[2020-10-04] MEDS: TAMSULOSIN 0.4 MG CAP.ER.24H PO SCH (08:13)
[2020-10-04] MEDS: METOPROLOL SUCCINATE (ER) 50 MG TAB.ER.24H PO SCH (08:13)
[2020-10-04] MEDS: ATORVASTATIN 40 MG TAB PO SCH (08:13)
--- NOTE | 2020-10-04 10:08 | P.DS ---
Providers Date of admission: 10/01/20 01:59 Expected date of discharge: 10/04/20 Attending physician: Derrick Martin MD Consults: 10/01/20 02:02 Consult Physician Routine Consulting Provider: [facility] Consult Reason/Comments: H & P Do you want consulting provider notified?: Already Contacted Primary care physician: Jolly Molina - Discharge Diagnosis(es) (1) Bipolar disorder current episode depressed Current Visit: Yes Status: Acute Priority: High (2) Methamphetamine abuse Current Visit: Yes Status: Acute Priority: High (3) Cocaine abuse Current Visit: Yes Status: Acute Priority: High (4) Nicotine dependence Current Visit: Yes Status: Acute Priority: Low Hospital Course: Admission HPI: Admission note was completed by personal lines underwriter "Patient is a 50-year-old male who is currently living at a [facility], is and has no kids and 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 Patient presented to the hospital yesterday and was complaining of depression and suicidal thoughts in the ER. Patient admitted to having not taken his medications at home and patient's UDS was positive for methamphetamine and cocaine. His liver function tests were elevated. Patient was seen today on the unit and agreeable to seek drug in the office. He had claimed that he "relapsed on crack and math" and states that he was sober for 90 days beforehand. He states that he used for only 1 day approximately $150 worth of drugs combined. He states that he became paranoid afterwards in the hotel that he was staying at and call the sandblast carver to check on the back window as he believes that someone was trying to get into his place. He states that he felt "stupid" and claims that he came to the hospital afterwards to seek help. He states that he is feeling depressed and irritable and "cranky" today. He appeared to be fairly impulsive and states that he has a history of bipolar disorder and stopped taking his Seroquel about 3 months ago. He states that he does have some anxiety. He is denying any paranoia at this time. He states that his sleep has been fair and appetite as been poor. Patient denies any suicidal or homicidal ideations intent or plan. At this time patient denies any auditory or visual hallucinations. Patient denies any flight of ideas racing thoughts and increased in goal directed behavior. Patient admits to using methamphetamine and cocaine as listed above. He states that he does smoke cigarettes daily." Hospital course: Upon admission to the unit patient was initially depressed and suicidal. Patient was however directable and agreeable to commence treatment and signed adult voluntary form. Patient got along well with other patients on the unit and followed unit protocol. Patient was compliant with the medications and denied any side effects throughout hospital course. Patient was started on Seroquel and increased to a dose of 200 mg daily at bedtime for mood stabilization/depression/insomnia. Patient was also started on Zoloft 50 mg daily for mood/anxiety. Patient spoke of his stressors and engaged in therapy both group and individual. Patient was also seen by medical team for history and physical exam. Throughout the course of the hospitalization patient gradually improved with regards to mood, anxiety, sleep and became more future oriented with improved insight and judgment. On the day of discharge patient denied any suicidal or homicidal ideations intent or plan denied any auditory or visual hallucinations. Patient endorsed wanting to live for his sobriety and his future. The patient denied any access to guns or weapons. Patient denied any paranoia and did not endorse any delusions. Patient does have a significant history of substance abuse and was counseled on abstaining from all substances including alcohol and marijuana. Patient claims that he will be going back to his [facility] and maintaining sobriety there in a sober house and declined rehab at this time. Patient was also counseled on the medications and need for regular compliance and was encouraged to follow-up with their outpatient appointment for mental health and also for primary care. Mental status exam: General Appearance: Patient appears to be tall, well-built, stated age is alert, directable, and cooperative. Patient is in no acute distress and has improved hygiene and grooming Behavior: Patient is calmly seated without any agitated behavior. Speech: Patient's speech is fluent and nonpressured. Mood/Affect: Patient reports their mood is "good", affect is congruent Suicidality/Homicidality: Patient denies having any suicidal or homicidal ideation intent or plan. Perceptions: Patient denies any auditory or visual hallucinations. Though content/process: There is no evidence of any delusional thought content and thought process is linear and goal-directed. more future oriented Memory and concentration: AOX3, grossly intact for the purposes of this session. Can spell "WORLD" backwards correctly. Judgment and insight: Chronically impulsive, improved with guarded prognosis Impression: Bipolar disorder, currently depressed Cocaine abuse Methamphetamine abuse Nicotine dependence Plan: -Continue with discharge today as patient has improved and stabilized psychiatrically and is not currently an imminent threat to himself and/or others. Patient will remain at chronically elevated risk for harm to self and/or others due to his impulsivity and polysubstance abuse. -Continue medications: Continue with Seroquel 200 mg daily at bedtime for mood stabilization/insomnia/depression. Continue with Zoloft 50 mg daily for mood/anxiety. -Patient was counseled on the need for medication compliance and appropriate follow-up at mental health and also primary care for medical issues. Patient verbalized understanding and agreed. -Social work to arrange for patient to have transportation back to [facility] today upon discharge. Social work also to arrange for patients follow up appointments with [facility] for psychiatric care along with follow up with primary care provider. -Patient counseled on abstaining from recreational drugs and marijuana and alcohol. Was informed/educated on the adverse effects on their physical and mental health. Patient verbally agreed and understood. Patient was offered substance rehab however declined at this time. -Patient was instructed to return to the hospital or seek immediate medical care if their psychiatric or medical symptoms do worsen or reoccur. Allergies Allergy/AdvReac Type Severity Reaction Status Date / Time No Known Allergies Allergy Verified 10/01/20 11:53 Laboratory Results WBC 8.7 k/uL (3.8-10.6) 10/01/20 07:00 RBC 4.95 m/uL (4.30-5.90) 10/01/20 07:00 Hgb 16.1 gm/dL (13.0-17.5) 10/01/20 07:00 Hct 46.0 % (39.0-53.0) 10/01/20 07:00 MCV 92.9 fL (80.0-100.0) 10/01/20 07:00 MCH 32.5 pg (25.0-35.0) 10/01/20 07:00 MCHC 35.0 g/dL (31.0-37.0) 10/01/20 07:00 RDW 13.2 % (11.5-15.5) 10/01/20 07:00 Plt Count 128 k/uL (150-450) L 10/01/20 07:00 MPV 9.1 10/01/20 07:00 Neutrophils % 65 % 10/01/20 07:00 Lymphocytes % 21 % 10/01/20 07:00 Monocytes % 6 % 10/01/20 07:00 Eosinophils % 6 % 10/01/20 07:00 Basophils % 1 % 10/01/20 07:00 Neutrophils # 5.7 k/uL (1.3-7.7) 10/01/20 07:00 Lymphocytes # 1.8 k/uL (1.0-4.8) 10/01/20 07:00 Monocytes # 0.6 k/uL (0-1.0) 10/01/20 07:00 Eosinophils # 0.5 k/uL (0-0.7) 10/01/20 07:00 Basophils # 0.1 k/uL (0-0.2) 10/01/20 07:00 Sodium 142 mmol/L (137-145) 10/01/20 07:00 Potassium 4.3 mmol/L (3.5-5.1) 10/01/20 07:00 Chloride 108 mmol/L (98-107) H 10/01/20 07:00 Carbon Dioxide 28 mmol/L (22-30) 10/01/20 07:00 Anion Gap 6 mmol/L 10/01/20 07:00 BUN 11 mg/dL (9-20) 10/01/20 07:00 Creatinine 0.94 mg/dL (0.66-1.25) 10/01/20 07:00 Est GFR (CKD-EPI)AfAm >90 (>60 ml/min/1.73 sqM) 10/01/20 07:00 Est GFR (CKD-EPI)NonAf >90 (>60 ml/min/1.73 sqM) 10/01/20 07:00 Glucose 101 mg/dL (74-99) H 10/01/20 07:[address] Glu mg/dL 108.28 10/01/20 07:00 Hemoglobin A1c 5.4 % (4.0-6.0) 10/01/20 07:00 Calcium 9.6 mg/dL (8.4-10.2) 10/01/20 07:00 Total Bilirubin 1.1 mg/dL (0.2-1.3) 10/01/20 07:00 AST 203 U/L (17-59) H 10/01/20 07:00 ALT 266 U/L (4-49) H 10/01/20 07:00 Alkaline Phosphatase 62 U/L (38-126) 10/01/20 07:00 Total Protein 7.5 g/dL (6.3-8.2) 10/01/20 07:00 Albumin 4.3 g/dL (3.5-5.0) 10/01/20 07:00 Triglycerides 87 mg/dL (<150) 10/01/20 07:00 Cholesterol 107 mg/dL (<200) 10/01/20 07:00 LDL Cholesterol, Calc 50 mg/dL (0-99) 10/01/20 07:00 HDL Cholesterol 40 mg/dL (40-60) 10/01/20 07:00 TSH 0.958 mIU/L (0.465-4.680) 10/01/20 07:00 Urine Opiates Screen Not Detected (NotDetected) 09/30/20 23:16 Ur Oxycodone Screen Not Detected (NotDetected) 09/30/20 23:16 Urine Methadone Screen Not Detected (NotDetected) 09/30/20 23:16 Ur Propoxyphene Screen Not Detected (NotDetected) 09/30/20 23:16 Ur Barbiturates Screen Not Detected (NotDetected) 09/30/20 23:16 U Tricyclic Antidepress Not Detected (NotDetected) 09/30/20 23:16 Ur Phencyclidine Scrn Not Detected (NotDetected) 09/30/20 23:16 Ur Amphetamines Screen Not Detected (NotDetected) 09/30/20 23:16 U Methamphetamines Scrn Detected (NotDetected) H 09/30/20 23:16 U Benzodiazepines Scrn Not Detected (NotDetected) 09/30/20 23:16 Urine Cocaine Screen Detected (NotDetected) H 09/30/20 23:16 U Marijuana (THC) Screen Not Detected (NotDetected) 09/30/20 23:16 Coronavirus (PCR) Not Detected (Not Detectd) 10/01/20 01:10 Vital Signs Temp 98.0 F 10/04/20 01:23 Pulse 72 10/04/20 01:23 Resp 16 10/04/20 01:23 BP 126/56 10/04/20 01:23 Pulse Ox 94 L 10/01/20 04:17 Patient Condition at Discharge: Fair Plan - Discharge Summary Discharge Rx Participant: No New Discharge Prescriptions: New QUEtiapine [SEROquel] 200 mg PO HS 30 Days tab Acetaminophen Tab [Tylenol] 650 mg PO Q4HR PRN tab PRN Reason: Pain/Discomfort Nicotine 14Mg/24Hr Patch [Habitrol] 1 patch TRANSDERM DAILY 14 Days patch Sertraline [Zoloft] 50 mg PO DAILY 30 Days tab Continue Tamsulosin HCl [Flomax] 0.4 mg PO DAILY Diclofenac Sodium [Voltaren] 75 mg PO AC-BID Atorvastatin [Lipitor] 40 mg PO DAILY Pantoprazole Sodium [Protonix] 40 mg PO AC-BRKFST Metoprolol Succinate (ER) [Toprol XL] 50 mg PO DAILY valACYclovir HCL [Valtrex] 1,000 mg PO DAILY Losartan [Cozaar] 50 mg PO DAILY Discontinued QUEtiapine [SEROquel] 100 mg PO HS Discharge Medication List Atorvastatin [Lipitor] 40 mg PO DAILY 10/01/20 [History] Diclofenac Sodium [Voltaren] 75 mg PO AC-BID 10/01/20 [History] Losartan [Cozaar] 50 mg PO DAILY 10/01/20 [History] Metoprolol Succinate (ER) [Toprol XL] 50 mg PO DAILY 10/01/20 [History] Pantoprazole Sodium [Protonix] 40 mg PO AC-BRKFST 10/01/20 [History] Tamsulosin HCl [Flomax] 0.4 mg PO DAILY 10/01/20 [History] valACYclovir HCL [Valtrex] 1,000 mg PO DAILY 10/01/20 [History] Acetaminophen Tab [Tylenol] 650 mg PO Q4HR PRN tab 10/04/20 [Rx] Nicotine 14Mg/24Hr Patch [Habitrol] 1 patch TRANSDERM DAILY 14 Days patch 10/04/20 [Rx] QUEtiapine [SEROquel] 200 mg PO HS 30 Days tab 10/04/20 [Rx] Sertraline [Zoloft] 50 mg PO DAILY 30 Days tab 10/04/20 [Rx] Follow up Appointment(s)/Referral(s): Jolly Molina MD [Primary Care Provider] - 1-2 days Activity/Diet/Wound Care/Special Instructions: Activity and diet as tolerated. Avoid the use of street drugs and alcohol. Take all medications as prescribed. When you are in need of refills on your medications please contact your medical provider and/or outpatient psychiatrist to have this done. Please go to scheduled outpatient appointment for aftercare treatment. If symptoms return or become worse, call the crisis line at and/or go to the nearest emergency room for evaluation. During the hospitalization, patient did receive benzodiazepines as needed for anxiety (Ativan) however this was discontinued prior to discharge. Discharge Disposition: OTHER INSTITUTION NOT DEFINED
== END 2020-10-04 12:20 | disposition home or self-care (01) | DRG 885 ==
LOC: EC 21:49 → 3MHU 10-01 01:59
PROVIDERS: ADMIT Psychiatry & Neurology Psychiatry; ATTEND Psychiatry & Neurology Psychiatry
DX: F31.30 Bipolar disorder, current episode depressed, mild or moderate severity, unspecified (principal); R45.851 Suicidal ideations; E78.5 Hyperlipidemia, unspecified; F14.10 Cocaine abuse, uncomplicated; F15.10 Other stimulant abuse, uncomplicated; F17.210 Nicotine dependence, cigarettes, uncomplicated; F41.9 Anxiety disorder, unspecified; G47.00 Insomnia, unspecified; I10 Essential (primary) hypertension; Z65.3 Problems related to other legal circumstances; Z79.899 Other long term (current) drug therapy; Z81.8 Family history of other mental and behavioral disorders; Z87.19 Personal history of other diseases of the digestive system
CPT/HCPCS: 80053; 80061; 80306; 82075; 83036; 84443; 85025; 87635; 96372; 99285

== ENCOUNTER 2020-10-07 06:28 | Inpatient (IN) | payer MEDICAID, OTHER ==
--- NOTE | 2020-10-07 07:28 | ED ---
General Adult HPI - General Chief complaint: Psychiatric Symptoms Stated complaint: Mental Health Time Seen by Provider: 10/07/20 06:55 Source: patient, RN notes reviewed, old records reviewed Mode of arrival: ambulatory Limitations: no limitations - History of Present Illness Initial comments: This is a 50-year-old male who presents emergency department stating that he is suicidal and he is hearing voices that are telling him to kill himself. Patient states he left on Wednesday after being admitted to the hospital for psychiatric reasons and he went back and started doing crack on Wednesday is well as yesterday. Patient states he tried to jump in front of traffic but he was unsuccessful. Patient denies any overdose attempt. Patient denies any other attempt committing suicide. Patient denies any physical complaints today. Patient denies any fever chills or cough. Patient denies any chest pain difficulty breathing shortness of breath. Patient has abdominal pain patient denies nausea vomiting diarrhea. Patient states she got the first of 2 scruggs virus vaccine shots - Related Data Home Medications Medication Instructions Recorded Confirmed Atorvastatin [Lipitor] 40 mg PO DAILY 10/01/20 10/07/20 Diclofenac Sodium [Voltaren] 75 mg PO AC-BID 10/01/20 10/07/20 Losartan [Cozaar] 50 mg PO DAILY 10/01/20 10/07/20 Metoprolol Succinate (ER) [Toprol 50 mg PO DAILY 10/01/20 10/07/20 XL] Pantoprazole Sodium [Protonix] 40 mg PO AC-BRKFST 10/01/20 10/07/20 Tamsulosin HCl [Flomax] 0.4 mg PO DAILY 10/01/20 10/07/20 valACYclovir HCL [Valtrex] 1,000 mg PO DAILY 10/01/20 10/07/20 Previous Rx's Medication Instructions Recorded Acetaminophen Tab [Tylenol] 650 mg PO Q4HR PRN tab 10/04/20 Nicotine 14Mg/24Hr Patch [Habitrol] 1 patch TRANSDERM DAILY 14 Days 10/04/20 patch QUEtiapine [SEROquel] 200 mg PO HS 30 Days tab 10/04/20 Sertraline [Zoloft] 50 mg PO DAILY 30 Days tab 10/04/20 Allergies Allergy/AdvReac Type Severity Reaction Status Date / Time No Known Allergies Allergy Verified 10/07/20 08:11 Review of Systems ROS Statement: Those systems with pertinent positive or pertinent negative responses have been documented in the HPI. ROS Other: All systems not noted in ROS Statement are negative. Past Medical History Past Medical History: Hypertension, Prostate Disorder Additional Past Medical History / Comment(s): colon polyps History of Any Multi-Drug Resistant Organisms: None Reported Past Surgical History: Orthopedic Surgery Additional Past Surgical History / Comment(s): rt shoulder Past Anesthesia/Blood Transfusion Reactions: No Reported Reaction Past Psychological History: Bipolar Smoking Status: Current every day smoker Past Alcohol Use History: None Reported Past Drug Use History: Cocaine, Methamphetamine General Exam - General Exam Comments Initial Comments: GENERAL: Patient is well-developed and well-nourished. Patient is nontoxic and well- hydrated and is in no acute distress. ENT: Neck is soft and supple. No significant lymphadenopathy is noted. Oropharynx is clear. Moist mucous membranes. Neck has full range of motion without eliciting any pain. EYES: The sclera were anicteric and conjunctiva were pink and moist. Extraocular movements were intact and pupils were equal round and reactive to light. Eyelids were unremarkable. PULMONARY: Unlabored respirations. Good breath sounds bilaterally. No audible rales rhonchi or wheezing was noted. CARDIOVASCULAR: There is a regular rate and rhythm without any murmurs gallops or rubs. ABDOMEN: Soft and nontender with normal bowel sounds. SKIN: Skin is clear with no lesions or rashes and otherwise unremarkable. NEUROLOGIC: Patient is alert and oriented x3. Cranial nerves II through XII are grossly intact. Motor and sensory are also intact. Normal speech, volume and content. Symmetrical smile. MUSCULOSKELETAL: Normal extremities with adequate strength and full range of motion. No lower extremity swelling or edema. No calf tenderness. LYMPHATICS: No significant lymphadenopathy is noted PSYCHIATRIC: Patient states he suicidal. Limitations: no limitations Course Vital Signs 10/07/20 06:39 Temperature 97.8 F Pulse Rate 74 Respiratory 16 Rate Blood Pressure 136/93 O2 Sat by Pulse 92 L Oximetry Medical Decision Making - Medical Decision Making EPS evaluated the patient and the patient was going to be admitted to our psychiatric unit. - Lab Data Lab Results 10/07/20 Range/Units 07:57 Urine Color Dark Yellow Urine Appearance Cloudy (Clear) Urine pH 5.5 (5.0-8.0) Ur Specific [place] 1.020 (1.001-1.035) Urine Protein 1+ H (Negative) Urine Glucose (UA) Negative (Negative) Urine Ketones Negative (Negative) Urine Blood Negative (Negative) Urine Nitrite Negative (Negative) Urine Bilirubin Negative (Negative) Urine Urobilinogen 4.0 (<2.0) mg/dL Ur Leukocyte Esterase Trace H (Negative) Urine RBC 2 (0-5) /hpf Urine WBC 10 H (0-5) /hpf Ur Squamous Epith Cells 1 (0-4) /hpf Urine Bacteria Occasional H (None) /hpf Hyaline Casts 225 H (0-2) /lpf Urine Mucus Few H (None) /hpf Urine Opiates Screen Not Detected (NotDetected) Ur Oxycodone Screen Not Detected (NotDetected) Urine Methadone Screen Not Detected (NotDetected) Ur Propoxyphene Screen Not Detected (NotDetected) Ur Barbiturates Screen Not Detected (NotDetected) U Tricyclic Antidepress Detected H (NotDetected) Ur Phencyclidine Scrn Not Detected (NotDetected) Ur Amphetamines Screen Not Detected (NotDetected) U Methamphetamines Scrn Detected H (NotDetected) U Benzodiazepines Scrn Detected H (NotDetected) Urine Cocaine Screen Detected H (NotDetected) U Marijuana (THC) Screen Not Detected (NotDetected) Disposition Clinical Impression: Crack cocaine use, Depression, Suicidal ideation Disposition: ADMITTED IP TO THIS [facility] Time of Disposition: 08:38
[2020-10-07] MEDS ORDERED: LORazepam 1 MG TAB PO STA (07:56)
[2020-10-07 08:18] LABS: Appearance,Urine Cloudy (Clear); Bacteria,Urine Occasional /hpf; Bilirubin,Urine Negative (Negative); Blood,Urine Negative (Negative); Color,Urine Dark Yellow; Glucose,Urine (UA) Negative (Negative); Hyaline Casts,Urine 225 /lpf (0-2); Ketones,Urine Negative (Negative); Leukocyte Esterase,Urine Trace (Negative); Mucus,Urine Few /hpf; Nitrite,Urine Negative (Negative); PH, Urine 5.5 (5.0-8.0); Protein,Urine 1+ (Negative); RBC,Urine 2 /hpf (0-5); Squamous Epithelial Cell,Urine 1 /hpf (0-4); WBC,Urine 10 /hpf (0-5)
[2020-10-07 08:20] LABS: Cocaine Screen,Urine Detected (NotDetected); Phencyclidine Screen,Urine Not Detected (NotDetected); Urn Cannabinoid Scrn Not Detected (NotDetected)
[2020-10-07 08:21] LABS: Amphetamine Screen,Urine Not Detected (NotDetected); Barbiturate Screen,Urine Not Detected (NotDetected); Benzodiazepines Screen,Urine Detected (NotDetected); Methadone Screen, Urine Not Detected (NotDetected); Opiate Screen,Urine Not Detected (NotDetected); Oxycodone Screen, Urine Not Detected (NotDetected); Tricyclic Antidepressant,Urine Detected (NotDetected)
[2020-10-07] MEDS ORDERED: MAGNESIUM HYDROXIDE 2,400 MG/10 ML CUP PO PRN (09:55)
[2020-10-07] MEDS ORDERED: MAG HYDROX/AL HYDROX/SIMETH 30 ML CUP PO PRN (09:55)
[2020-10-07] MEDS ORDERED: ACETAMINOPHEN TAB 325 MG TAB PO PRN (09:55)
[2020-10-07] MEDS ORDERED: HALOPERIDOL LACTATE 5 MG/ML 1 ML VIAL IM PRN (10:00)
[2020-10-07] MEDS: LOSARTAN 50 MG TAB PO SCH (10:34)
[2020-10-07] MEDS: valACYclovir HCL 1,000 MG TABLET PO SCH (10:35)
[2020-10-07] MEDS: LORazepam 1 MG TAB PO PRN ×2 (10:35→17:51)
[2020-10-07] MEDS: SERTRALINE 50 MG TAB PO SCH (10:35)
[2020-10-07] MEDS: TAMSULOSIN 0.4 MG CAP.ER.24H PO SCH (10:35)
[2020-10-07] MEDS: METOPROLOL SUCCINATE (ER) 50 MG TAB.ER.24H PO SCH (10:37)
[2020-10-07] MEDS: PANTOPRAZOLE 40 MG TABLET PO SCH (10:55)
[2020-10-07] MEDS: NICOTINE 14MG/24HR PATCH TRANSDERM SCH (10:55)
--- NOTE | 2020-10-07 11:17 | P.HP ---
Psychiatric H&P - . H&P Date: 10/07/20 History & Physical: Allergies Allergy/AdvReac Type Severity Reaction Status Date / Time No Known Allergies Allergy Verified 10/07/20 11:00 Vital Signs Temp 97.6 F 10/07/20 10:10 Pulse 71 10/07/20 10:10 Resp 16 10/07/20 10:10 BP 114/76 10/07/20 10:10 Pulse Ox 92 L 10/07/20 09:58 Intake & Output 10/06/20 10/07/20 10/07/20 18:59 06:59 18:59 Weight 101.605 kg 100.896 kg Laboratory Last Values Urine Color Dark Yellow 10/07/20 07:57 Urine Appearance Cloudy (Clear) 10/07/20 07:57 Urine pH 5.5 (5.0-8.0) 10/07/20 07:57 Ur Specific [place] 1.020 (1.001-1.035) 10/07/20 07:57 Urine Protein 1+ (Negative) H 10/07/20 07:57 Urine Glucose (UA) Negative (Negative) 10/07/20 07:57 Urine Ketones Negative (Negative) 10/07/20 07:57 Urine Blood Negative (Negative) 10/07/20 07:57 Urine Nitrite Negative (Negative) 10/07/20 07:57 Urine Bilirubin Negative (Negative) 10/07/20 07:57 Urine Urobilinogen 4.0 mg/dL (<2.0) 10/07/20 07:57 Ur Leukocyte Esterase Trace (Negative) H 10/07/20 07:57 Urine RBC 2 /hpf (0-5) 10/07/20 07:57 Urine WBC 10 /hpf (0-5) H 10/07/20 07:57 Ur Squamous Epith Cells 1 /hpf (0-4) 10/07/20 07:57 Urine Bacteria Occasional /hpf (None) H 10/07/20 07:57 Hyaline Casts 225 /lpf (0-2) H 10/07/20 07:57 Urine Mucus Few /hpf (None) H 10/07/20 07:57 Urine Opiates Screen Not Detected (NotDetected) 10/07/20 07:57 Ur Oxycodone Screen Not Detected (NotDetected) 10/07/20 07:57 Urine Methadone Screen Not Detected (NotDetected) 10/07/20 07:57 Ur Propoxyphene Screen Not Detected (NotDetected) 10/07/20 07:57 Ur Barbiturates Screen Not Detected (NotDetected) 10/07/20 07:57 U Tricyclic Antidepress Detected (NotDetected) H 10/07/20 07:57 Ur Phencyclidine Scrn Not Detected (NotDetected) 10/07/20 07:57 Ur Amphetamines Screen Not Detected (NotDetected) 10/07/20 07:57 U Methamphetamines Scrn Detected (NotDetected) H 10/07/20 07:57 U Benzodiazepines Scrn Detected (NotDetected) H 10/07/20 07:57 Urine Cocaine Screen Detected (NotDetected) H 10/07/20 07:57 U Marijuana (THC) Screen Not Detected (NotDetected) 10/07/20 07:57 Coronavirus (PCR) Not Detected (Not Detectd) 10/07/20 09:00 10/07/20 11:12 IDENTIFYING DATA: Patient is a 50-year-old male who is currently living at a three-quarter house, is and has no kids and 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 HPI: Patient presented to the hospital ER yesterday with complaints of suicidal ideations auditory hallucinations which were telling him to kill himself. According to ER report patient stated that he tried to jump into traffic. Patient was recently discharged from the mental health unit on Wednesday where he was placed on Zoloft and Seroquel. Patient's UDS was positive for TCA, metham phetamine, benzodiazepines and cocaine. Patient was seen today by poem writer and agreed to speak in the office. He claims that he went to go mushroom picker his check from work once he was discharged on Wednesday from the psychiatric unit and states that "I got high after". She states that he spent the weekend purchasing and using crack cocaine approximately $200 worth at a friend's house. He states that he was feeling depressed and wanting to run into traffic. He claims that he is feeling hopeless and worthless. He states that he did not get his medication scripts filled. He was minimizing his drug use. He states his sleep has been poor. He claims that his appetite has been poor. He states that he does have some anxiety. He is denying any paranoia at this time. He states that his sleep has been fair and appetite as been poor. Patient denies any homicidal ideations intent or plan. He claims that he still feeling suicidal ideations over now intend and plan. At this time patient denies any auditory or visual hallucinations. Patient denies any flight of ideas racing thoughts and increased in goal directed behavior. Patient admits to using methamphetamine and cocaine as listed above. He states that he does smoke cigarettes daily. PAST PSYCHIATRIC HISTORY: Patient states that he has a history of bipolar disorder. Patient was last admitted to the mental health unit last week and discharged last Wednesday. He was then on Zoloft 50 mg daily and Seroquel 200 mg daily at bedtime. He states that he has been hospitalized several times in the past. Patient denies any psychiatric outpatient follow-up. Patient denies any history of suicide attempts in the past. PMH: Hypertension and prostate disorder ALLERGIES: as per EMR CHEMICAL DEPENDENCY HISTORY: as per HPI FAMILY PSYCHIATRIC/SUBSTANCE USE HISTORY: Claims that his mother has bipolar disorder SOCIAL HISTORY: Patient was born and raised in [facility]. He states that he completed his GED after dropping out of school. He claims that he has had several legal problems in the past and has been to custodial and residential including for larceny, robbery and assault. 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 MENTAL STATUS EXAM: General Appearance: Patient appears to be tall, well-built, stated age is alert, directable, yet is irritable at times. Patient appears to have poor hygiene and grooming. Behavior: Patient is seated without any agitated behavior. Irritable at times Speech: Patient's speech is fluent and nonpressured. Mood/Affect: Patient reports their mood is depressed and irritable, affect is congruent Suicidality/Homicidality: Patient denies having any homicidal ideation intent or plan. Denies any suicidal ideations intent or plan Perceptions: Patient denies any visual hallucinations and denies any auditory hallucinations Though content/process: There is no evidence of any delusional thought content and thought process is linear and goal-directed. Memory and concentration: AOX3, grossly intact for the purposes of this session. Can spell "WORLD" backwards Judgment and insight: poor/impulsive STRENGTHS/WEAKNESSES: strength is that patient is resilient. Weakness is that patient has poor judgment and is impulsive INTELLECT: average IMPRESSIONS: Bipolar disorder, currently depressed Methamphetamine abuse Cocaine abuse Nicotine dependence PLAN: -Patient is admitted under voluntary status to MHU for stabilization of psychiatric symptoms and safety. Patient has signed adult voluntary form and medication consent and is placed in patient's chart. -Medications : Will start patient on Seroquel 200 mg daily at bedtime for mood stabilization/depression/insomnia, Zoloft 50 mg daily for mood/anxiety. -Ativan and Haldol PRN for agitation/aggression -Patient was counselled on substance abuse and desired to cut back on use -Patient was informed of the risks, benefits and side effects of the medication and patient verbally consented to taking the medications. Patient signed med consent form and was placed in chart. -Internal Medicine consult to perform medical evaluation and physical. -NRT - nicotine patch -SW on board for discharge planning. Encourage patient to participate in groups to work on coping skills. Patient was minimizing his drug use however will continue to encourage patient to go to inpatient rehab. 10/07/20 11:16
--- NOTE | 2020-10-07 13:43 | P.CONS ---
History of Present Illness - Reason for Consult Consult date: 10/07/20 Medical management - Chief Complaint Suicidal ideation - History of Present Illness This is a 50-year-old male with past medical history noted below who presented to the emergency room with suicidal ideation. Patient was evaluated and admitted to the psych unit for further treatment. I was asked to see him for medical management. Patient told me that he is feeling depressed. He does not have any suicidal ideation at this time. He admits abusing cocaine and methamphetamine. No other complaint at this time. Review of Systems Review of system: 14 points review of systems were obtained and were negative except to what were mentioned in the HPI. Past Medical History Past Medical History: Hypertension, Prostate Disorder Additional Past Medical History / Comment(s): colon polyps History of Any Multi-Drug Resistant Organisms: None Reported Past Surgical History: Orthopedic Surgery Additional Past Surgical History / Comment(s): rt shoulder Past Anesthesia/Blood Transfusion Reactions: No Reported Reaction Past Psychological History: Bipolar Smoking Status: Current every day smoker Past Alcohol Use History: None Reported Past Drug Use History: Cocaine, Methamphetamine Medications and Allergies Home Medications Medication Instructions Recorded Confirmed Type Atorvastatin [Lipitor] 40 mg PO DAILY 10/01/20 10/07/20 History Diclofenac Sodium [Voltaren] 75 mg PO AC-BID 10/01/20 10/07/20 History Losartan [Cozaar] 50 mg PO DAILY 10/01/20 10/07/20 History Metoprolol Succinate (ER) [Toprol 50 mg PO DAILY 10/01/20 10/07/20 History XL] Pantoprazole Sodium [Protonix] 40 mg PO AC-BRKFST 10/01/20 10/07/20 History Tamsulosin HCl [Flomax] 0.4 mg PO DAILY 10/01/20 10/07/20 History valACYclovir HCL [Valtrex] 1,000 mg PO DAILY 10/01/20 10/07/20 History Acetaminophen Tab [Tylenol] 650 mg PO Q4HR PRN tab 10/04/20 10/07/20 Rx Nicotine 14Mg/24Hr Patch [Habitrol] 1 patch TRANSDERM DAILY 14 Days 10/04/20 10/07/20 Rx patch QUEtiapine [SEROquel] 200 mg PO HS 30 Days tab 10/04/20 10/07/20 Rx Sertraline [Zoloft] 50 mg PO DAILY 30 Days tab 10/04/20 10/07/20 Rx Allergies Allergy/AdvReac Type Severity Reaction Status Date / Time No Known Allergies Allergy Verified 10/07/20 11:00 Physical Exam Vitals: Vital Signs Temp Pulse Pulse Resp BP BP Pulse Ox 10/07/20 10:10 97.6 F 71 16 114/76 10/07/20 09:58 97.8 F 74 18 136/93 92 L 10/07/20 09:00 18 10/07/20 08:00 18 10/07/20 06:39 97.8 F 74 16 136/93 92 L Intake and Output 10/06/20 10/07/20 10/07/20 22:59 06:59 14:59 Other: Weight 101.605 kg 100.896 kg General: The patient is awake and alert, in no distress Eye: there is normal conjunctiva bilaterally. Neck: The neck is supple, there is no JVD. Cardiovascular: Normal S1-S2, no S3-S4, no murmurs. Respiratory: Lungs clear to auscultation bilaterally Gastrointestinal: Abdomen is soft, nontender Musculoskeletal: There is no pedal edema. Neurological:. Speech is normal. Skin: Skin is warm and dry Results Labs: Abnormal Lab Results - Last 24 Hours (Table) 10/07/20 Range/Units 07:57 Urine Protein 1+ H (Negative) Ur Leukocyte Esterase Trace H (Negative) Urine WBC 10 H (0-5) /hpf Urine Bacteria Occasional H (None) /hpf Hyaline Casts 225 H (0-2) /lpf Urine Mucus Few H (None) /hpf U Tricyclic Antidepress Detected H (NotDetected) U Methamphetamines Scrn Detected H (NotDetected) U Benzodiazepines Scrn Detected H (NotDetected) Urine Cocaine Screen Detected H (NotDetected) Assessment and Plan Assessment: This is a 50-year-old male who is currently admitted to the psych unit for further management of his medical problems noted below 1. Suicidal ideation 2. Bipolar disorder with depressive moment 3. Methamphetamine and cocaine use 4. Essential hypertension 5. Hyperlipidemia 6. Tobacco abuse Today, I reviewed his medication list and lab work results. Patient was counseled extensively regarding tobacco and illicit drug use. Continue current regimen. Psychiatry recommendation regarding depression. Thank you very much for the consultation.
[2020-10-07] MEDS: QUEtiapine 200 MG TAB PO SCH (22:23)
[2020-10-08] MEDS: LORazepam 1 MG TAB PO PRN (02:21)
[2020-10-08] MEDS ORDERED: PANTOPRAZOLE 40 MG TABLET PO SCH (07:30)
[2020-10-08] MEDS: ATORVASTATIN 40 MG TAB PO SCH (07:48)
[2020-10-08] MEDS: PANTOPRAZOLE 40 MG TABLET PO SCH (07:48)
[2020-10-08] MEDS: valACYclovir HCL 1,000 MG TABLET PO SCH ×2 (07:48→07:51)
[2020-10-08] MEDS: TAMSULOSIN 0.4 MG CAP.ER.24H PO SCH (07:48)
[2020-10-08] MEDS: SERTRALINE 50 MG TAB PO SCH (07:49)
[2020-10-08] MEDS: NICOTINE 14MG/24HR PATCH TRANSDERM SCH (07:49)
[2020-10-08] MEDS: LOSARTAN 50 MG TAB PO SCH (07:49)
[2020-10-08] MEDS: haloperidoL 5 MG TAB PO PRN ×3 (08:00→18:20)
[2020-10-08] MEDS: METOPROLOL SUCCINATE (ER) 50 MG TAB.ER.24H PO SCH (08:05)
[2020-10-08] MEDS ORDERED: NICOTINE 14MG/24HR PATCH TRANSDERM SCH (09:00)
[2020-10-08] MEDS: OLANZapine 5 MG TAB PO ONE ×3 (09:51→10:33)
[2020-10-08] MEDS ORDERED: traZODone HCL 50 MG TAB PO PRN (09:57)
[2020-10-08] MEDS ORDERED: OLANZapine 10 MG VIAL IM PRN (09:58)
--- NOTE | 2020-10-08 10:14 | P.PN ---
Progress Note - Text Progress Note Date: 10/08/20 Interval History: Patient was seen [wandering the hallways] and was persistent in speaking with typewriter ribbon winder. Patient was preoccupied with obtaining sleep medications. He appeared to be fairly irritable and distracted. He states that he is not able to sleep "at all" last night. He states that he is not feeling well today due to lack of sleep and claims that he is not going to participate in groups today. He states that he is waiting on the Ativan but wants something else to help him relax. P atient states that he has anxiety and is feeling depressed. He continues to have poor insight and judgment. At this time patient denies any suicidal or homical ideations, intent or plan. Patient denies any auditory, visual hallucinations and denies any paranoia or delusions. Patient denies any side effects from the medications and has been compliant with meds. Mental Status Exam: General Appearance: Patient appears to be tall, well-built, stated age is alert, directable, yet is irritable. Patient appears to have poor hygiene and grooming. Behavior: Patient is seated without any agitated behavior. Irritable at times Speech: Patient's speech is fluent and nonpressured. Mood/Affect: Patient reports their mood is depressed and irritable, affect is congruent and appears to be anxious Suicidality/Homicidality: Patient denies having any homicidal ideation intent or plan. Denies any suicidal ideations intent or plan Perceptions: Patient denies any visual hallucinations and denies any auditory hallucinations Though content/process: There is no evidence of any delusional thought content and thought process is linear and goal-directed. Preoccupied with obtaining medications. Memory and concentration: AOX3, grossly intact for the purposes of this session. Judgment and insight: poor/impulsive Assessment Bipolar disorder, currently depressed Methamphetamine abuse Cocaine abuse Nicotine dependence Plan: -Patient continues to meet criteria for inpatient psychiatric admission for symptom stabilization and safety. Patient has signed [adult voluntary form and] [medication consent] and was placed in patient's chart. -Medications: Continue with Seroquel 200 mg daily at bedtime for mood stabilization/depression/insomnia. Increased Zoloft to 100 mg daily for mood/anxiety. Ordered Zyprexa by mouth 5 mg now for agitation. -When necessary Zyprexa IM and by mouth for agitation/aggression. -NRT - [nicotine patch] -SW on board for discharge planning. Encouraged the patient to participate in milieu. Patient continues to minimize his drug use however will continue to encourage patient to go to inpatient rehab.
[2020-10-08] MEDS: OLANZapine 5 MG TAB PO PRN (15:59)
[2020-10-08] MEDS: QUEtiapine 200 MG TAB PO SCH (21:19)
[2020-10-09] MEDS: NICOTINE 14MG/24HR PATCH TRANSDERM SCH (08:04)
[2020-10-09] MEDS: LOSARTAN 50 MG TAB PO SCH (08:05)
[2020-10-09] MEDS: valACYclovir HCL 1,000 MG TABLET PO SCH ×2 (08:05→09:08)
[2020-10-09] MEDS: ATORVASTATIN 40 MG TAB PO SCH (08:05)
[2020-10-09] MEDS: OLANZapine 5 MG TAB PO PRN ×2 (08:05→17:55)
[2020-10-09] MEDS: TAMSULOSIN 0.4 MG CAP.ER.24H PO SCH (08:05)
[2020-10-09] MEDS: SERTRALINE 100 MG TAB PO SCH (08:05)
[2020-10-09] MEDS: METOPROLOL SUCCINATE (ER) 50 MG TAB.ER.24H PO SCH (08:05)
[2020-10-09] MEDS: PANTOPRAZOLE 40 MG TABLET PO SCH (08:05)
[2020-10-09] MEDS: NICOTINE POLACRILEX 2 MG GUM BUCCAL PRN ×2 (09:17→13:35)
--- NOTE | 2020-10-09 10:19 | P.PN ---
Progress Note - Text Progress Note Date: 10/09/20 Interval History: Patient was seen wandering the hallways and was persistent in speaking with wr iter. The patient came into contract writer's office as soon as another patient was leaving. Today patient appeared to be more awake and less irritable. He was fairly persistent on discharge once again and states that "everything's fine" and continues to minimize his psychiatric condition. He also was minimizing his substance use and states that "I just need to go to groups and I can't quit on my own". He showed very little interest in going to group well on the unit. He states that he was able to sleep better last night on the current medications. He states that his mood has been gradually improving well on the unit. He continues to have poor/superficial insight and judgment. At this time patient denies any suicidal or homical ideations, intent or plan. Patient denies any auditory, visual hallucinations and denies any paranoia or delusions. Patient denies any side effects from the medications and has been compliant with meds. Mental Status Exam: General Appearance: Patient appears to be tall, well-built, stated age is alert, directable, superficial. Patient appears to have improving hygiene and grooming. Behavior: Patient is seated without any agitated behavior. Superficial Speech: Patient's speech is fluent and nonpressured. Mood/Affect: Patient reports their mood is "better", affect is congruent and is constricted Suicidality/Homicidality: Patient denies having any homicidal ideation intent or plan. Denies any suicidal ideations intent or plan Perceptions: Patient denies any visual hallucinations and denies any auditory hallucinations Though content/process: There is no evidence of any delusional thought content and thought process is linear and goal-directed. Preoccupied with discharge today Memory and concentration: AOX3, grossly intact for the purposes of this session. Judgment and insight: poor/impulsive, improving mildly Assessment Bipolar disorder, currently depressed Methamphetamine abuse Cocaine abuse Nicotine dependence Plan: -Patient continues to meet criteria for inpatient psychiatric admission for symptom stabilization and safety. Patient has signed adult voluntary form and medication consent and was placed in patient's chart. -Medications: Continue with Seroquel 200 mg daily at bedtime for mood stabilization/depression/insomnia. Continue with Zoloft to 100 mg daily for mood/anxiety. -When necessary Zyprexa IM and by mouth for agitation/aggression. -NRT - nicotine patch -SW on board for discharge planning. Encouraged the patient to participate in milieu. Patient continues to minimize his drug use and is declining rehab. Likely discharge tomorrow back to [facility] [place].
[2020-10-09] MEDS: haloperidoL 5 MG TAB PO PRN (14:26)
[2020-10-09] MEDS: QUEtiapine 200 MG TAB PO SCH (20:36)
[2020-10-10 06:44] VITALS: RESP 16
[2020-10-10] MEDS: NICOTINE 14MG/24HR PATCH TRANSDERM SCH (08:19)
[2020-10-10] MEDS: ATORVASTATIN 40 MG TAB PO SCH (08:20)
[2020-10-10] MEDS: LOSARTAN 50 MG TAB PO SCH (08:20)
[2020-10-10] MEDS: valACYclovir HCL 1,000 MG TABLET PO SCH (08:20)
[2020-10-10] MEDS: PANTOPRAZOLE 40 MG TABLET PO SCH (08:20)
[2020-10-10] MEDS: METOPROLOL SUCCINATE (ER) 50 MG TAB.ER.24H PO SCH (08:20)
[2020-10-10] MEDS: SERTRALINE 100 MG TAB PO SCH (08:20)
[2020-10-10] MEDS: TAMSULOSIN 0.4 MG CAP.ER.24H PO SCH (08:20)
[2020-10-10] MEDS: OLANZapine 5 MG TAB PO PRN (08:20)
[2020-10-10] MEDS: NICOTINE POLACRILEX 2 MG GUM BUCCAL PRN (08:20)
[2020-10-10 08:25] VITALS: BP 111/74; PULSE 83
--- NOTE | 2020-10-10 08:58 | P.DS ---
Providers Date of admission: 10/07/20 08:03 Expected date of discharge: 10/10/20 Attending physician: Derrick Martin MD Consults: 10/07/20 09:55 Consult Physician Routine Consulting Provider: Norman Physician Consult Reason/Comments: H & P and follow up care. Do you want consulting provider notified?: Yes Primary care physician: Jolly Molina - Discharge Diagnosis(es) (1) Bipolar disorder current episode depressed Current Visit: Yes Status: Acute Priority: High (2) Methamphetamine abuse Current Visit: Yes Status: Acute Priority: High (3) Cocaine abuse Current Visit: Yes Status: Acute Priority: High (4) Nicotine dependence Current Visit: Yes Status: Acute Priority: Low Hospital Course: Admission HPI: Admission note was completed by commercial loan underwriter "Patient is a 50-year-old male who is currently living at a three-quarter house, is and has no kids and 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 Patient presented to the hospital ER yesterday with complaints of suicidal ideations auditory hallucinations which were telling him to kill himself. According to ER report patient stated that he tried to jump into traffic. Patient was recently discharged from the mental health unit on Wednesday where he was placed on Zoloft and Seroquel. Patient's UDS was positive for TCA, methamphetamine, benzodiazepines and cocaine. Patient was seen today by commercial loan underwriter and agreed to speak in the office. 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 She states that he spent the weekend purchasing and using crack cocaine approximately $200 worth at a friend's house. He states that he was feeling depressed and wanting to run into traffic. He claims that he is feeling hopeless and worthless. He states that he did not get his medication scripts filled. He was minimizing his drug use. He states his sleep has been poor. He claims that his appetite has been poor. He states that he does have some anxiety. He is denying any paranoia at this time. He states that his sleep has been fair and appetite as been poor. Patient denies any homicidal ideations intent or plan. He claims that he still feeling suicidal ideations over now intend and plan. At this time patient denies any auditory or visual hallucinations. Patient denies any flight of ideas racing thoughts and increased in goal directed behavior. Patient admits to using methamphetamine and cocaine as listed above. He states that he does smoke cigarettes daily." Hospital course: Upon admission to the unit patient was initially depressed and irritable. Patient was however directable and agreeable to commence treatment and signed adult voluntary form. Patient got along well with other patients on the unit and followed unit protocol. Patient was compliant with the medications and denied any side effects throughout hospital course. Patient was started on his home dose of Seroquel 200 mg daily at bedtime for mood stabilization/depression/insomnia. Patient was also restarted on Zoloft however increased her dose of 100 mg daily for mood/anxiety. Patient spoke of his stressors and engaged in therapy both group and individual. Patient was also seen by medical team for history and physical exam. Throughout the course of the hospitalization patient gradually improved with regards to mood, anxiety, sleep and became more future oriented with improved insight and judgment. On the day of discharge patient denied any suicidal or homicidal ideations intent or plan denied any auditory or visual hallucinations. Patient endorsed wanting to live for his health and future. The patient denied any access to guns or weapons. Patient denied any paranoia and did not endorse any delusions. Patient does have a significant history of substance abuse however was counseled on abstaining from all substances including alcohol and marijuana. Patient was offered however declined inpatient substance-abuse rehab. Patient wanted to continue on living and attending the groups [facility]. Patient was also counseled on the medications and need for regular compliance and was encouraged to follow-up with their outpatient appointment for mental health and also for primary care. Mental status exam: General Appearance: Patient appears to be tall, well-built, stated age is alert, pleasant, and cooperative. Patient is in no acute distress and has improved hygiene and grooming Behavior: Patient is calmly seated without any agitated behavior. Speech: Patient's speech is fluent and nonpressured. Mood/Affect: Patient reports their mood is "better", affect is congruent and constricted Suicidality/Homicidality: Patient denies having any suicidal or homicidal ideation intent or plan. Perceptions: Patient denies any auditory or visual hallucinations. Though content/process: There is no evidence of any delusional thought content and thought process is linear and goal-directed. more future oriented Memory and concentration: AOX3, grossly intact for the purposes of this session. Can spell "WORLD" backwards correctly. Judgment and insight: chronically poor, however has improved with guarded prognosis Impression: Bipolar disorder, currently depressed Methamphetamine abuse Cocaine abuse Nicotine dependence Plan: -Continue with discharge today as patient has improved and stabilized psychiatrically and is not currently an imminent threat to himself and/or others. Patient will remain at chronically elevated risk for harm to self and/or others due to his impulsivity and polysubstance abuse. -Continue medications: Seroquel 200 mg daily at bedtime for mood stabilization/depression/insomnia, Zoloft 100 mg daily for mood/anxiety -Patient was counseled on the need for medication compliance and appropriate follow-up at mental health and also primary care for medical issues. Patient verbalized understanding and agreed. -Social work to arrange for and conduct family meeting to ensure safety upon discharge and answer any questions/concerns. Social work also to arrange for patients follow up appointments with [facility] for psychiatric care along with follow up with primary care provider. -Patient counseled on abstaining from recreational drugs and marijuana and alcohol. Was informed/educated on the adverse effects on their physical and mental health. Patient verbally agreed and understood. Patient was offered substance abuse treatment however declined at this time. Patient will be discharged back to the [facility]. -Patient was instructed to return to the hospital or seek immediate medical care if their psychiatric or medical symptoms do worsen or reoccur. Allergies Allergy/AdvReac Type Severity Reaction Status Date / Time No Known Allergies Allergy Verified 10/07/20 11:00 Laboratory Results Urine Color Dark Yellow 10/07/20 07:57 Urine Appearance Cloudy (Clear) 10/07/20 07:57 Urine pH 5.5 (5.0-8.0) 10/07/20 07:57 Ur Specific [place] 1.020 (1.001-1.035) 10/07/20 07:57 Urine Protein 1+ (Negative) H 10/07/20 07:57 Urine Glucose (UA) Negative (Negative) 10/07/20 07:57 Urine Ketones Negative (Negative) 10/07/20 07:57 Urine Blood Negative (Negative) 10/07/20 07:57 Urine Nitrite Negative (Negative) 10/07/20 07:57 Urine Bilirubin Negative (Negative) 10/07/20 07:57 Urine Urobilinogen 4.0 mg/dL (<2.0) 10/07/20 07:57 Ur Leukocyte Esterase Trace (Negative) H 10/07/20 07:57 Urine RBC 2 /hpf (0-5) 10/07/20 07:57 Urine WBC 10 /hpf (0-5) H 10/07/20 07:57 Ur Squamous Epith Cells 1 /hpf (0-4) 10/07/20 07:57 Urine Bacteria Occasional /hpf (None) H 10/07/20 07:57 Hyaline Casts 225 /lpf (0-2) H 10/07/20 07:57 Urine Mucus Few /hpf (None) H 10/07/20 07:57 Urine Opiates Screen Not Detected (NotDetected) 10/07/20 07:57 Ur Oxycodone Screen Not Detected (NotDetected) 10/07/20 07:57 Urine Methadone Screen Not Detected (NotDetected) 10/07/20 07:57 Ur Propoxyphene Screen Not Detected (NotDetected) 10/07/20 07:57 Ur Barbiturates Screen Not Detected (NotDetected) 10/07/20 07:57 U Tricyclic Antidepress Detected (NotDetected) H 10/07/20 07:57 Ur Phencyclidine Scrn Not Detected (NotDetected) 10/07/20 07:57 Ur Amphetamines Screen Not Detected (NotDetected) 10/07/20 07:57 U Methamphetamines Scrn Detected (NotDetected) H 10/07/20 07:57 U Benzodiazepines Scrn Detected (NotDetected) H 10/07/20 07:57 Urine Cocaine Screen Detected (NotDetected) H 10/07/20 07:57 U Marijuana (THC) Screen Not Detected (NotDetected) 10/07/20 07:57 Coronavirus (PCR) Not Detected (Not Detectd) 10/07/20 09:00 Vital Signs Temp 98.4 F 10/10/20 06:28 Pulse 83 10/10/20 08:23 Resp 16 10/10/20 06:28 BP 111/74 10/10/20 08:23 Pulse Ox 98 10/09/20 08:02 Patient Condition at Discharge: Stable Plan - Discharge Summary Discharge Rx Participant: No New Discharge Prescriptions: New Sertraline [Zoloft] 100 mg PO DAILY 30 Days tab Continue Tamsulosin HCl [Flomax] 0.4 mg PO DAILY Diclofenac Sodium [Voltaren] 75 mg PO AC-BID Atorvastatin [Lipitor] 40 mg PO DAILY Pantoprazole Sodium [Protonix] 40 mg PO AC-BRKFST Metoprolol Succinate (ER) [Toprol XL] 50 mg PO DAILY QUEtiapine [SEROquel] 200 mg PO HS 30 Days tab Acetaminophen Tab [Tylenol] 650 mg PO Q4HR PRN tab PRN Reason: Pain/Discomfort valACYclovir HCL [Valtrex] 1,000 mg PO DAILY Losartan [Cozaar] 50 mg PO DAILY Nicotine 14Mg/24Hr Patch [Habitrol] 1 patch TRANSDERM DAILY 14 Days patch Discontinued Sertraline [Zoloft] 50 mg PO DAILY 30 Days tab Discharge Medication List Atorvastatin [Lipitor] 40 mg PO DAILY 10/01/20 [History] Diclofenac Sodium [Voltaren] 75 mg PO AC-BID 10/01/20 [History] Losartan [Cozaar] 50 mg PO DAILY 10/01/20 [History] Metoprolol Succinate (ER) [Toprol XL] 50 mg PO DAILY 10/01/20 [History] Pantoprazole Sodium [Protonix] 40 mg PO AC-BRKFST 10/01/20 [History] Tamsulosin HCl [Flomax] 0.4 mg PO DAILY 10/01/20 [History] valACYclovir HCL [Valtrex] 1,000 mg PO DAILY 10/01/20 [History] Acetaminophen Tab [Tylenol] 650 mg PO Q4HR PRN tab 10/04/20 [Rx] Nicotine 14Mg/24Hr Patch [Habitrol] 1 patch TRANSDERM DAILY 14 Days patch 10/04/20 [Rx] QUEtiapine [SEROquel] 200 mg PO HS 30 Days tab 10/04/20 [Rx] Sertraline [Zoloft] 100 mg PO DAILY 30 Days tab 10/10/20 [Rx] Follow up Appointment(s)/Referral(s): [facility] - 10/14/20 2:30 pm (Mickie Graham) Jolly Molina MD [Primary Care Provider] - 1-2 days Patient Instructions/Handouts: How to Stop Smoking (DC), Cocaine Abuse (DC), Depression (DC), Suicide Prevention (DC) Activity/Diet/Wound Care/Special Instructions: Activity and diet as tolerated. Avoid the use of street drugs and alcohol. Take all medications as prescribed. When you are in need of refills on your medications please contact your medical provider and/or outpatient psychiatrist to have this done. Please go to scheduled outpatient appointment for aftercare. If symptoms return or become worse call the crisis line at and/or go to the nearest emergency room for an evaluation. Discharge Disposition: HOME SELF-CARE
[2020-10-10 09:16] VITALS: TEMP 98.2
== END 2020-10-10 11:13 | disposition home or self-care (01) | DRG 885 ==
LOC: EC 06:28 → 3MHU 08:03
PROVIDERS: ADMIT Psychiatry & Neurology Psychiatry; ATTEND Psychiatry & Neurology Psychiatry
DX: F31.30 Bipolar disorder, current episode depressed, mild or moderate severity, unspecified (principal); R45.851 Suicidal ideations; E78.5 Hyperlipidemia, unspecified; F14.10 Cocaine abuse, uncomplicated; F15.10 Other stimulant abuse, uncomplicated; F17.210 Nicotine dependence, cigarettes, uncomplicated; F41.9 Anxiety disorder, unspecified; G47.00 Insomnia, unspecified; I10 Essential (primary) hypertension; Z65.3 Problems related to other legal circumstances; Z79.899 Other long term (current) drug therapy; Z81.8 Family history of other mental and behavioral disorders; Z87.19 Personal history of other diseases of the digestive system; Z20.822 Contact with and (suspected) exposure to COVID-19
CPT/HCPCS: 80306; 81001; 82075; 87635; 99285

== ENCOUNTER 2020-10-16 03:26 | Emergency (ER) | payer OTHER ==
[2020-10-16 03:35] VITALS: RESP 18; TEMP 97.8
--- NOTE | 2020-10-16 04:38 | ED ---
Psych HPI - General Chief Complaint: Psychiatric Symptoms Stated Complaint: Mental Health Time Seen by Provider: 10/16/20 03:38 Source: patient Mode of arrival: ambulatory - History of Present Illness MD Complaint: suicidal ideation, feels depressed -: hour(s) Associated Psychiatric Symptoms: depression, suicidal ideation History of same: Yes Quality: getting worse Worsens With: drug use Context: recent drug abuse Associated Symptoms: denies other symptoms - Related Data Home Medications Medication Instructions Recorded Confirmed Atorvastatin [Lipitor] 40 mg PO DAILY 10/01/20 10/16/20 Diclofenac Sodium [Voltaren] 75 mg PO AC-BID 10/01/20 10/16/20 Losartan [Cozaar] 50 mg PO DAILY 10/01/20 10/16/20 Metoprolol Succinate (ER) [Toprol 50 mg PO DAILY 10/01/20 10/16/20 XL] Pantoprazole Sodium [Protonix] 40 mg PO AC-BRKFST 10/01/20 10/16/20 Tamsulosin HCl [Flomax] 0.4 mg PO DAILY 10/01/20 10/16/20 valACYclovir HCL [Valtrex] 1,000 mg PO DAILY 10/01/20 10/16/20 Previous Rx's Medication Instructions Recorded Acetaminophen Tab [Tylenol] 650 mg PO Q4HR PRN tab 10/04/20 Nicotine 14Mg/24Hr Patch [Habitrol] 1 patch TRANSDERM DAILY 14 Days 10/04/20 patch QUEtiapine [SEROquel] 200 mg PO HS 30 Days tab 10/04/20 Sertraline [Zoloft] 100 mg PO DAILY 30 Days tab 10/10/20 Allergies Allergy/AdvReac Type Severity Reaction Status Date / Time No Known Allergies Allergy Verified 10/16/20 06:41 Review of Systems ROS Statement: Those systems with pertinent positive or pertinent negative responses have been documented in the HPI. ROS Other: All systems not noted in ROS Statement are negative. Constitutional: Denies: fever, chills Respiratory: Denies: cough, dyspnea Cardiovascular: Denies: chest pain, palpitations Gastrointestinal: Denies: abdominal pain, vomiting, diarrhea Genitourinary: Denies: dysuria, hematuria Musculoskeletal: Denies: back pain Skin: Denies: rash Neurological: Denies: headache Psychiatric: Reports: depression, suicidal thoughts. Denies: auditory halluc inations, visual hallucinations, homicidal thoughts Past Medical History Past Medical History: Hypertension, Prostate Disorder Additional Past Medical History / Comment(s): colon polyps History of Any Multi-Drug Resistant Organisms: None Reported Past Surgical History: Orthopedic Surgery Additional Past Surgical History / Comment(s): rt shoulder Past Anesthesia/Blood Transfusion Reactions: No Reported Reaction Past Psychological History: Anxiety, Bipolar, Depression Smoking Status: Current every day smoker Past Alcohol Use History: None Reported Past Drug Use History: Cocaine, Methamphetamine General Exam Limitations: no limitations General appearance: alert, in no apparent distress Head exam: Present: atraumatic, normocephalic Eye exam: Present: normal appearance. Absent: scleral icterus, conjunctival injection Respiratory exam: Present: normal lung sounds bilaterally. Absent: respiratory distress, wheezes, rales, rhonchi, stridor Cardiovascular Exam: Present: regular rate, normal rhythm, normal heart sounds. Absent: systolic murmur, diastolic murmur, rubs, gallop GI/Abdominal exam: Present: soft. Absent: distended, tenderness, guarding, rebound Neurological exam: Present: alert, normal gait Psychiatric exam: Present: depressed, suicidal ideation. Absent: agitated, anx ious, flat affect, manic, homicidal ideation Skin exam: Present: warm, dry, intact, normal color. Absent: rash Course Vital Signs 10/16/20 10/16/20 10/16/20 03:32 08:00 10:00 Temperature 97.8 F 97.8 F Pulse Rate 98 86 89 Respiratory 18 18 18 Rate Blood Pressure 180/108 162/90 166/89 O2 Sat by Pulse 96 99 99 Oximetry 10/16/20 12:00 Temperature 97.8 F Pulse Rate 82 Respiratory 18 Rate Blood Pressure 160/84 O2 Sat by Pulse 99 Oximetry Medical Decision Making - Lab Data Result diagrams: 10/16/20 06:08 10/16/20 06:08 Lab Results 10/16/20 10/16/20 10/16/20 Range/Units 05:33 06:08 06:08 WBC 11.2 H (3.8-10.6) k/uL RBC 4.80 (4.30-5.90) m/uL Hgb 15.4 (13.0-17.5) gm/dL Hct 43.7 (39.0-53.0) % MCV 91.2 (80.0-100.0) fL MCH 32.2 (25.0-35.0) pg MCHC 35.3 (31.0-37.0) g/dL RDW 13.0 (11.5-15.5) % Plt Count 184 (150-450) k/uL MPV 8.8 Neutrophils % 82 % Lymphocytes % 12 % Monocytes % 4 % Eosinophils % 1 % Basophils % 0 % Neutrophils # 9.1 H (1.3-7.7) k/uL Lymphocytes # 1.4 (1.0-4.8) k/uL Monocytes # 0.4 (0-1.0) k/uL Eosinophils # 0.1 (0-0.7) k/uL Basophils # 0.0 (0-0.2) k/uL Sodium 140 (137-145) mmol/L Potassium 4.1 (3.5-5.1) mmol/L Chloride 105 (98-107) mmol/L Carbon Dioxide 26 (22-30) mmol/L Anion Gap 9 mmol/L BUN 13 (9-20) mg/dL Creatinine 0.88 (0.66-1.25) mg/dL Est GFR (CKD-EPI)AfAm >90 (>60 ml/min/1.73 sqM) Est GFR (CKD-EPI)NonAf >90 (>60 ml/min/1.73 sqM) Glucose 112 H (74-99) mg/dL Calcium 10.1 (8.4-10.2) mg/dL Total Bilirubin 0.9 (0.2-1.3) mg/dL AST 192 H (17-59) U/L ALT 239 H (4-49) U/L Alkaline Phosphatase 86 (38-126) U/L Total Protein 8.2 (6.3-8.2) g/dL Albumin 5.0 (3.5-5.0) g/dL Urine Color Yellow Urine Appearance Clear (Clear) Urine pH 7.0 (5.0-8.0) Ur Specific [place] 1.017 (1.001-1.035) Urine Protein 1+ H (Negative) Urine Glucose (UA) Negative (Negative) Urine Ketones Negative (Negative) Urine Blood Negative (Negative) Urine Nitrite Negative (Negative) Urine Bilirubin Negative (Negative) Urine Urobilinogen 2.0 (<2.0) mg/dL Ur Leukocyte Esterase Negative (Negative) Urine RBC 1 (0-5) /hpf Urine WBC 1 (0-5) /hpf Ur Squamous Epith Cells <1 (0-4) /hpf Urine Bacteria Rare H (None) /hpf Urine Mucus Rare H (None) /hpf Urine Opiates Screen Not Detected (NotDetected) Ur Oxycodone Screen Not Detected (NotDetected) Urine Methadone Screen Not Detected (NotDetected) Ur Propoxyphene Screen Not Detected (NotDetected) Ur Barbiturates Screen Not Detected (NotDetected) U Tricyclic Antidepress Not Detected (NotDetected) Ur Phencyclidine Scrn Not Detected (NotDetected) Ur Amphetamines Screen Not Detected (NotDetected) U Methamphetamines Scrn Detected H (NotDetected) U Benzodiazepines Scrn Not Detected (NotDetected) Urine Cocaine Screen Not Detected (NotDetected) U Marijuana (THC) Screen Not Detected (NotDetected) Coronavirus (PCR) (Not Detectd) 10/16/20 Range/Units 06:08 WBC (3.8-10.6) k/uL RBC (4.30-5.90) m/uL Hgb (13.0-17.5) gm/dL Hct (39.0-53.0) % MCV (80.0-100.0) fL MCH (25.0-35.0) pg MCHC (31.0-37.0) g/dL RDW (11.5-15.5) % Plt Count (150-450) k/uL MPV Neutrophils % % Lymphocytes % % Monocytes % % Eosinophils % % Basophils % % Neutrophils # (1.3-7.7) k/uL Lymphocytes # (1.0-4.8) k/uL Monocytes # (0-1.0) k/uL Eosinophils # (0-0.7) k/uL Basophils # (0-0.2) k/uL Sodium (137-145) mmol/L Potassium (3.5-5.1) mmol/L Chloride (98-107) mmol/L Carbon Dioxide (22-30) mmol/L Anion Gap mmol/L BUN (9-20) mg/dL Creatinine (0.66-1.25) mg/dL Est GFR (CKD-EPI)AfAm (>60 ml/min/1.73 sqM) Est GFR (CKD-EPI)NonAf (>60 ml/min/1.73 sqM) Glucose (74-99) mg/dL Calcium (8.4-10.2) mg/dL Total Bilirubin (0.2-1.3) mg/dL AST (17-59) U/L ALT (4-49) U/L Alkaline Phosphatase (38-126) U/L Total Protein (6.3-8.2) g/dL Albumin (3.5-5.0) g/dL Urine Color Urine Appearance (Clear) Urine pH (5.0-8.0) Ur Specific [place] (1.001-1.035) Urine Protein (Negative) Urine Glucose (UA) (Negative) Urine Ketones (Negative) Urine Blood (Negative) Urine Nitrite (Negative) Urine Bilirubin (Negative) Urine Urobilinogen (<2.0) mg/dL Ur Leukocyte Esterase (Negative) Urine RBC (0-5) /hpf Urine WBC (0-5) /hpf Ur Squamous Epith Cells (0-4) /hpf Urine Bacteria (None) /hpf Urine Mucus (None) /hpf Urine Opiates Screen (NotDetected) Ur Oxycodone Screen (NotDetected) Urine Methadone Screen (NotDetected) Ur Propoxyphene Screen (NotDetected) Ur Barbiturates Screen (NotDetected) U Tricyclic Antidepress (NotDetected) Ur Phencyclidine Scrn (NotDetected) Ur Amphetamines Screen (NotDetected) U Methamphetamines Scrn (NotDetected) U Benzodiazepines Scrn (NotDetected) Urine Cocaine Screen (NotDetected) U Marijuana (THC) Screen (NotDetected) Coronavirus (PCR) Not Detected (Not Detectd) Disposition Clinical Impression: Suicidal ideation, Mood disorder Disposition: OTHER INSTITUTION NOT DEFINED Condition: Good Is patient prescribed a controlled substance at d/c from ED?: No Referrals: Jolly Molina MD [Primary Care Provider] - 1-2 days - Out of Hospital Transfer - Req. Specs Out of Hospital Transfer - Requested Specifics: Psychiatric Non-ICU
[2020-10-16 05:58] LABS: Appearance,Urine Clear (Clear); Bacteria,Urine Rare /hpf; Bilirubin,Urine Negative (Negative); Blood,Urine Negative (Negative); Color,Urine Yellow; Glucose,Urine (UA) Negative (Negative); Ketones,Urine Negative (Negative); Leukocyte Esterase,Urine Negative (Negative); Mucus,Urine Rare /hpf; Nitrite,Urine Negative (Negative); Protein,Urine 1+ (Negative); RBC,Urine 1 /hpf (0-5); Specific Gravity,Urine 1.017 (1.001-1.035); Squamous Epithelial Cell,Urine <1 /hpf (0-4); WBC,Urine 1 /hpf (0-5)
[2020-10-16 05:59] LABS: Amphetamine Screen,Urine Not Detected (NotDetected); Barbiturate Screen,Urine Not Detected (NotDetected); Benzodiazepines Screen,Urine Not Detected (NotDetected); Cocaine Screen,Urine Not Detected (NotDetected); Methadone Screen, Urine Not Detected (NotDetected); Opiate Screen,Urine Not Detected (NotDetected); Oxycodone Screen, Urine Not Detected (NotDetected); Phencyclidine Screen,Urine Not Detected (NotDetected); Tricyclic Antidepressant,Urine Not Detected (NotDetected); Urn Cannabinoid Scrn Not Detected (NotDetected)
[2020-10-16 06:20] LABS: Basophils % (A) 0 %; Eosinophils # (A) 0.1 k/uL (0-0.7); Eosinophils % (A) 1 %; HCT 43.7 % (39.0-53.0); HGB 15.4 gm/dL (13.0-17.5); Lymphocytes # (A) 1.4 k/uL (1.0-4.8); Lymphocytes % (A) 12 %; MCH 32.2 pg (25.0-35.0); MCHC 35.3 g/dL (31.0-37.0); MCV 91.2 fL (80.0-100.0); Mean Platelet Volume 8.8; Monocytes # (A) 0.4 k/uL (0-1.0); Monocytes % (A) 4 %; Neutrophils # (A) 9.1 k/uL (1.3-7.7); Neutrophils % (A) 82 %; Platelet Count 184 k/uL (150-450); WBC 11.2 k/uL (3.8-10.6)
[2020-10-16 06:30] LABS: ALT 239 U/L (4-49); AST 192 U/L (17-59); African American GFR (CKD) >90 (>60 ml/min/1.73 sqM); Alkaline Phosphatase 86 U/L (38-126); Anion Gap 9 mmol/L; Blood Urea Nitrogen 13 mg/dL (9-20); Calcium 10.1 mg/dL (8.4-10.2); Carbon Dioxide 26 mmol/L (22-30); Chloride 105 mmol/L (98-107); Glucose 112 mg/dL (74-99); Non-African American GFR(CKD) >90 (>60 ml/min/1.73 sqM); Potassium 4.1 mmol/L (3.5-5.1); Sodium 140 mmol/L (137-145); Total Bilirubin 0.9 mg/dL (0.2-1.3); Total Protein 8.2 g/dL (6.3-8.2)
[2020-10-16] MEDS ORDERED: ALPRAZolam 0.5 MG TAB PO STA ×2 (08:54→12:50)
[2020-10-16 12:05] VITALS: BP 160/84; PULSE 82
== END 2020-10-16 13:20 | disposition other institution (70) ==
LOC: EC 03:26
DX: F39 Unspecified mood [affective] disorder (principal); I10 Essential (primary) hypertension; F32.9 Major depressive disorder, single episode, unspecified; F41.9 Anxiety disorder, unspecified
CPT/HCPCS: 36415; 80053; 80306; 81001; 82075; 85025; 87635; 99285

== ENCOUNTER 2020-10-27 22:49 | Emergency (ER) | payer MEDICAID, OTHER ==
[2020-10-27 23:03] VITALS: TEMP 98.5
--- NOTE | 2020-10-28 00:35 | ED ---
Psych HPI - General Chief Complaint: Psychiatric Symptoms Stated Complaint: Mental health Time Seen by Provider: 10/27/20 23:42 Source: patient Mode of arrival: ambulatory - Related Data Home Medications Medication Instructions Recorded Confirmed Atorvastatin [Lipitor] 40 mg PO DAILY 10/01/20 10/16/20 Diclofenac Sodium [Voltaren] 75 mg PO AC-BID 10/01/20 10/16/20 Losartan [Cozaar] 50 mg PO DAILY 10/01/20 10/16/20 Metoprolol Succinate (ER) [Toprol 50 mg PO DAILY 10/01/20 10/16/20 XL] Pantoprazole Sodium [Protonix] 40 mg PO AC-BRKFST 10/01/20 10/16/20 Tamsulosin HCl [Flomax] 0.4 mg PO DAILY 10/01/20 10/16/20 valACYclovir HCL [Valtrex] 1,000 mg PO DAILY 10/01/20 10/16/20 Previous Rx's Medication Instructions Recorded Acetaminophen Tab [Tylenol] 650 mg PO Q4HR PRN tab 10/04/20 Nicotine 14Mg/24Hr Patch [Habitrol] 1 patch TRANSDERM DAILY 14 Days 10/04/20 patch QUEtiapine [SEROquel] 200 mg PO HS 30 Days tab 10/04/20 Sertraline [Zoloft] 100 mg PO DAILY 30 Days tab 10/10/20 Allergies Allergy/AdvReac Type Severity Reaction Status Date / Time No Known Allergies Allergy Verified 10/27/20 23:03 Review of Systems ROS Statement: Those systems with pertinent positive or pertinent negative responses have been documented in the HPI. ROS Other: All systems not noted in ROS Statement are negative. Past Medical History Past Medical History: Hypertension, Prostate Disorder Additional Past Medical History / Comment(s): colon polyps History of Any Multi-Drug Resistant Organisms: None Reported Past Surgical History: Orthopedic Surgery Additional Past Surgical History / Comment(s): rt shoulder Past Anesthesia/Blood Transfusion Reactions: No Reported Reaction Past Psychological History: Anxiety, Bipolar, Depression Smoking Status: Current every day smoker Past Alcohol Use History: None Reported Past Drug Use History: Cocaine, Methamphetamine General Exam Limitations: no limitations Course Vital Signs 10/27/20 10/28/20 22:56 00:39 Temperature 98.5 F Pulse Rate 102 H 99 Respiratory 20 18 Rate Blood Pressure 207/117 178/106 O2 Sat by Pulse 92 L 98 Oximetry Disposition Clinical Impression: Methamphetamine abuse, Mood disorder Disposition: HOME SELF-CARE Condition: Fair Instructions (If sedation given, give patient instructions): Mood Disorders (ED) Is patient prescribed a controlled substance at d/c from ED?: No Referrals: Jolly Molina MD [Primary Care Provider] - 1-2 days
[2020-10-28] MEDS ORDERED: LORazepam 1 MG TAB PO STA (00:39)
[2020-10-28 00:40] VITALS: RESP 18
[2020-10-28] MEDS ORDERED: diphenhydrAMINE 50 MG CAP PO STA (01:19)
[2020-10-28] MEDS ORDERED: haloperidoL 5 MG TAB PO STA (01:19)
[2020-10-28] MEDS ORDERED: diazePAM 5 MG TAB PO STA (04:01)
[2020-10-28 05:55] VITALS: BP 163/92; PULSE 91
== END 2020-10-28 05:45 | disposition home or self-care (01) ==
LOC: EC 22:49
DX: F15.10 Other stimulant abuse, uncomplicated (principal); F39 Unspecified mood [affective] disorder; I10 Essential (primary) hypertension; F41.9 Anxiety disorder, unspecified; F31.9 Bipolar disorder, unspecified; F17.200 Nicotine dependence, unspecified, uncomplicated; F14.90 Cocaine use, unspecified, uncomplicated
CPT/HCPCS: 82075; 99284

== ENCOUNTER 2020-10-28 19:45 | Emergency (ER) | payer OTHER ==
[2020-10-28 19:52] VITALS: RESP 18; TEMP 98
--- NOTE | 2020-10-28 20:03 | ED ---
General Adult HPI - General Chief complaint: Psychiatric Symptoms Stated complaint: Mental Health Time Seen by Provider: 10/28/20 19:53 Source: patient, EMS, RN notes reviewed, old records reviewed Mode of arrival: EMS Limitations: no limitations - History of Present Illness Initial comments: 50-year-old male with history of bipolar depression presenting with suicidal ideation, drugs and alcohol abuse. Patient admits to methamphetamine use as well as alcohol consumption throughout the day today. He's had thoughts of suicide with no suicide attempt. Patient was brought in by EMS, he is calm and cooperative at the time my evaluation. There have been some mention of altered mental status however this is likely related to the patient's alcohol and drug abuse. He is alert and oriented 3 at the time my evaluation. - Related Data Home Medications Medication Instructions Recorded Confirmed Atorvastatin [Lipitor] 40 mg PO DAILY 10/01/20 10/16/20 Diclofenac Sodium [Voltaren] 75 mg PO AC-BID 10/01/20 10/16/20 Losartan [Cozaar] 50 mg PO DAILY 10/01/20 10/16/20 Metoprolol Succinate (ER) [Toprol 50 mg PO DAILY 10/01/20 10/16/20 XL] Pantoprazole Sodium [Protonix] 40 mg PO AC-BRKFST 10/01/20 10/16/20 Tamsulosin HCl [Flomax] 0.4 mg PO DAILY 10/01/20 10/16/20 valACYclovir HCL [Valtrex] 1,000 mg PO DAILY 10/01/20 10/16/20 Previous Rx's Medication Instructions Recorded Acetaminophen Tab [Tylenol] 650 mg PO Q4HR PRN tab 10/04/20 Nicotine 14Mg/24Hr Patch [Habitrol] 1 patch TRANSDERM DAILY 14 Days 10/04/20 patch QUEtiapine [SEROquel] 200 mg PO HS 30 Days tab 10/04/20 Sertraline [Zoloft] 100 mg PO DAILY 30 Days tab 10/10/20 Allergies Allergy/AdvReac Type Severity Reaction Status Date / Time No Known Allergies Allergy Verified 10/28/20 19:52 Review of Systems ROS Statement: Those systems with pertinent positive or pertinent negative responses have been documented in the HPI. ROS Other: All systems not noted in ROS Statement are negative. Past Medical History Past Medical History: Hypertension, Prostate Disorder Additional Past Medical History / Comment(s): colon polyps History of Any Multi-Drug Resistant Organisms: None Reported Past Surgical History: Orthopedic Surgery Additional Past Surgical History / Comment(s): rt shoulder Past Anesthesia/Blood Transfusion Reactions: No Reported Reaction Past Psychological History: Anxiety, Bipolar, Depression Smoking Status: Current every day smoker Past Alcohol Use History: Rare Past Drug Use History: Cocaine, Methamphetamine General Exam Limitations: no limitations General appearance: alert, in no apparent distress Head exam: Present: atraumatic, normocephalic Eye exam: Present: normal appearance, PERRL Neck exam: Present: normal inspection. Absent: tenderness, meningismus Respiratory exam: Present: normal lung sounds bilaterally. Absent: respiratory distress, wheezes Cardiovascular Exam: Present: regular rate, normal rhythm GI/Abdominal exam: Present: soft. Absent: distended Extremities exam: Present: normal inspection, normal capillary refill Neurological exam: Present: alert, CN II-XII intact. Absent: motor sensory deficit Psychiatric exam: Present: anxious, suicidal ideation Skin exam: Present: warm, dry, intact. Absent: cyanosis, diaphoretic Course Vital Signs 10/28/20 19:47 Temperature 98.0 F Pulse Rate 111 H Respiratory 18 Rate Blood Pressure 126/83 O2 Sat by Pulse 94 L Oximetry - Reevaluation(s) Reevaluation #1: 10/28/20 20:02 Medically cleared for EPS Medical Decision Making - Medical Decision Making 50-year-old male Presented with suicidal thoughts. Patient had been medically cleared and evaluated by EPS, felt to be safe for discharge. He did sign a safety plan. He is given information about a assisted Disposition Clinical Impression: Methamphetamine abuse, Mood disorder, Bipolar disorder current episode depressed Disposition: HOME SELF-CARE Condition: Fair Instructions (If sedation given, give patient instructions): Bipolar Disorder (ED) Is patient prescribed a controlled substance at d/c from ED?: No Referrals: Jolly Molina MD [Primary Care Provider] - 1-2 days Time of Disposition: 22:04
[2020-10-28] MEDS ORDERED: ALPRAZolam 1 MG TAB PO STA (21:55)
[2020-10-28 22:27] VITALS: BP 138/90; PULSE 107
[2020-10-28 22:36] LABS: Amphetamine Screen,Urine Detected (NotDetected); Barbiturate Screen,Urine Not Detected (NotDetected); Benzodiazepines Screen,Urine Detected (NotDetected); Cocaine Screen,Urine Detected (NotDetected); Methadone Screen, Urine Not Detected (NotDetected); Opiate Screen,Urine Not Detected (NotDetected); Oxycodone Screen, Urine Not Detected (NotDetected); Phencyclidine Screen,Urine Not Detected (NotDetected); Tricyclic Antidepressant,Urine Not Detected (NotDetected); Urn Cannabinoid Scrn Not Detected (NotDetected)
== END 2020-10-28 22:27 | disposition home or self-care (01) ==
LOC: EC 19:45
DX: F15.10 Other stimulant abuse, uncomplicated (principal); F31.9 Bipolar disorder, unspecified; F10.10 Alcohol abuse, uncomplicated; R45.851 Suicidal ideations; I10 Essential (primary) hypertension; F14.90 Cocaine use, unspecified, uncomplicated; F17.200 Nicotine dependence, unspecified, uncomplicated; Z87.19 Personal history of other diseases of the digestive system; Z79.899 Other long term (current) drug therapy; Z79.1 Long term (current) use of non-steroidal anti-inflammatories (NSAID); Y90.9 Presence of alcohol in blood, level not specified
CPT/HCPCS: 80306; 82075; 99285

== ENCOUNTER 2020-12-19 00:33 | Inpatient (IN) | payer MEDICAID, OTHER ==
--- NOTE | 2020-12-19 01:25 | ED ---
Psych HPI - General Chief Complaint: Psychiatric Symptoms Stated Complaint: Mental health Time Seen by Provider: 12/19/20 00:45 Source: patient, police, RN notes reviewed, old records reviewed Mode of arrival: ambulatory Limitations: no limitations - History of Present Illness Initial Comments: This is a 50-year-old male to the ER for evaluation patient brought in for psychiatric evaluation. Patient is doing meth, is severely anxious and hyperalert. Poor historian secondary to drug abuse. Patient is brought in by PD under petition MD Complaint: altered mental status -: unknown Associated Psychiatric Symptoms: racing thoughts Quality: constant Improves With: none Worsens With: none Context: not taking psychiatric medications Associated Symptoms: confusion, insomnia Treatments Prior to Arrival: placed on mental health hold - Related Data Home Medications Medication Instructions Recorded Confirmed Atorvastatin [Lipitor] 40 mg PO DAILY 10/01/20 10/16/20 Diclofenac Sodium [Voltaren] 75 mg PO AC-BID 10/01/20 10/16/20 Losartan [Cozaar] 50 mg PO DAILY 10/01/20 10/16/20 Metoprolol Succinate (ER) [Toprol 50 mg PO DAILY 10/01/20 10/16/20 XL] Pantoprazole Sodium [Protonix] 40 mg PO AC-BRKFST 10/01/20 10/16/20 Tamsulosin HCl [Flomax] 0.4 mg PO DAILY 10/01/20 10/16/20 valACYclovir HCL [Valtrex] 1,000 mg PO DAILY 10/01/20 10/16/20 Previous Rx's Medication Instructions Recorded Acetaminophen Tab [Tylenol] 650 mg PO Q4HR PRN tab 10/04/20 Nicotine 14Mg/24Hr Patch [Habitrol] 1 patch TRANSDERM DAILY 14 Days 10/04/20 patch QUEtiapine [SEROquel] 200 mg PO HS 30 Days tab 10/04/20 Sertraline [Zoloft] 100 mg PO DAILY 30 Days tab 10/10/20 Allergies Allergy/AdvReac Type Severity Reaction Status Date / Time No Known Allergies Allergy Verified 12/19/20 00:40 Review of Systems ROS Statement: Those systems with pertinent positive or pertinent negative responses have been documented in the HPI. ROS Other: All systems not noted in ROS Statement are negative. Past Medical History Past Medical History: Hypertension, Prostate Disorder Additional Past Medical History / Comment(s): colon polyps History of Any Multi-Drug Resistant Organisms: None Reported Past Surgical History: Orthopedic Surgery Additional Past Surgical History / Comment(s): rt shoulder Past Anesthesia/Blood Transfusion Reactions: No Reported Reaction Past Psychological History: Anxiety, Bipolar, Depression Smoking Status: Current every day smoker Past Alcohol Use History: Rare Past Drug Use History: Methamphetamine General Exam Limitations: no limitations General appearance: appears intoxicated, anxious Head exam: Present: atraumatic, normocephalic, normal inspection Eye exam: Present: normal appearance, PERRL, EOMI. Absent: scleral icterus, conjunctival injection, periorbital swelling ENT exam: Present: normal exam, mucous membranes moist Neck exam: Present: normal inspection. Absent: tenderness, meningismus, lymphadenopathy Respiratory exam: Present: normal lung sounds bilaterally. Absent: respiratory distress, wheezes, rales, rhonchi, stridor Cardiovascular Exam: Present: normal rhythm, tachycardia, normal heart sounds. Absent: systolic murmur, diastolic murmur, rubs, gallop, clicks GI/Abdominal exam: Present: soft, normal bowel sounds. Absent: distended, tenderness, guarding, rebound, rigid Extremities exam: Present: normal inspection, full ROM, normal capillary refill. Absent: tenderness, pedal edema, joint swelling, calf tenderness Back exam: Present: normal inspection Neurological exam: Present: alert, oriented X3, CN II-XII intact Psychiatric exam: Present: normal affect, normal mood Skin exam: Present: warm, dry, intact, normal color. Absent: rash Course Vital Signs 12/19/20 00:35 Temperature 98.3 F Pulse Rate 132 H Respiratory 20 Rate Blood Pressure 136/100 O2 Sat by Pulse 95 Oximetry - Reevaluation(s) Reevaluation #1: 12/19/20 01:24 Medical record is reviewed Reevaluation #2: 12/19/20 01:24 Patient is under petition Medical Decision Making - Medical Decision Making 50 male to the ER for evaluation patient presents today for evaluation of psychiatric illness patient also has history of drug abuse. Patient be admitted for psychiatric evaluation and treatment - Lab Data Lab Results 12/19/20 Range/Units 01:44 Urine Opiates Screen Not Detected (NotDetected) Ur Oxycodone Screen Not Detected (NotDetected) Urine Methadone Screen Not Detected (NotDetected) Ur Propoxyphene Screen Not Detected (NotDetected) Ur Barbiturates Screen Not Detected (NotDetected) U Tricyclic Antidepress Detected H (NotDetected) Ur Phencyclidine Scrn Not Detected (NotDetected) Ur Amphetamines Screen Detected H (NotDetected) U Methamphetamines Scrn Detected H (NotDetected) U Benzodiazepines Scrn Not Detected (NotDetected) Urine Cocaine Screen Detected H (NotDetected) U Marijuana (THC) Screen Not Detected (NotDetected) Disposition Clinical Impression: Cocaine abuse, Methamphetamine abuse, Depression, Suicidal ideation, Bipolar disorder current episode depressed Disposition: TRANSFER TO PSYCH HOSP/UNIT Condition: Fair Is patient prescribed a controlled substance at d/c from ED?: No Referrals: Jolly Molina MD [Primary Care Provider] - 1-2 days
[2020-12-19 02:17] LABS: Amphetamine Screen,Urine Detected (NotDetected); Barbiturate Screen,Urine Not Detected (NotDetected); Benzodiazepines Screen,Urine Not Detected (NotDetected); Cocaine Screen,Urine Detected (NotDetected); Methadone Screen, Urine Not Detected (NotDetected); Opiate Screen,Urine Not Detected (NotDetected); Oxycodone Screen, Urine Not Detected (NotDetected); Phencyclidine Screen,Urine Not Detected (NotDetected); Tricyclic Antidepressant,Urine Detected (NotDetected); Urn Cannabinoid Scrn Not Detected (NotDetected)
[2020-12-19] MEDS ORDERED: diphenhydrAMINE 50 MG/ML 1 ML VIAL IM STA (02:45)
[2020-12-19] MEDS ORDERED: LORazepam 2 MG/ML INJ IM STA (02:45)
[2020-12-19] MEDS ORDERED: ALPRAZolam 1 MG TAB PO STA (02:49)
[2020-12-19] MEDS ORDERED: MAG HYDROX/AL HYDROX/SIMETH 30 ML CUP PO PRN (03:52)
[2020-12-19] MEDS ORDERED: ACETAMINOPHEN TAB 325 MG TAB PO PRN (03:52)
[2020-12-19] MEDS ORDERED: MAGNESIUM HYDROXIDE 2,400 MG/10 ML CUP PO PRN (03:52)
[2020-12-19] MEDS ORDERED: LORazepam 2 MG/ML INJ IM PRN (03:56)
[2020-12-19] MEDS ORDERED: haloperidoL 5 MG TAB PO PRN (03:58)
[2020-12-19 04:52] LABS: Amorphous Sediment,Urine Rare /hpf; Appearance,Urine Cloudy (Clear); Bacteria,Urine Rare /hpf; Bilirubin,Urine Negative (Negative); Blood,Urine Negative (Negative); Calcium Oxalate Crystals,Urine Many /hpf; Color,Urine Yellow; Glucose,Urine (UA) Negative (Negative); Hyaline Casts,Urine 14 /lpf (0-2); Ketones,Urine Negative (Negative); Leukocyte Esterase,Urine Negative (Negative); Mucus,Urine Many /hpf; Nitrite,Urine Negative (Negative); Protein,Urine 2+ (Negative); RBC,Urine 2 /hpf (0-5); Specific Gravity,Urine 1.027 (1.001-1.035); WBC,Urine 8 /hpf (0-5)
[2020-12-19] MEDS: LORazepam 1 MG TAB PO PRN ×3 (04:53→20:14)
[2020-12-19] MEDS: TAMSULOSIN 0.4 MG CAP.ER.24H PO SCH (07:38)
[2020-12-19] MEDS: NICOTINE 21MG/24HR PATCH TRANSDERM SCH (08:01)
[2020-12-19] MEDS ORDERED: SERTRALINE 100 MG TAB PO SCH (09:00)
[2020-12-19] MEDS ORDERED: NICOTINE 14MG/24HR PATCH TRANSDERM SCH (09:00)
--- NOTE | 2020-12-19 10:28 | P.HP ---
Psychiatric H&P - . H&P Date: 12/19/20 History & Physical: Allergies Allergy/AdvReac Type Severity Reaction Status Date / Time No Known Allergies Allergy Verified 12/19/20 04:31 Vital Signs Temp 98.1 F 12/19/20 04:10 Pulse 127 H 12/19/20 04:10 Resp 22 12/19/20 04:10 BP 122/66 12/19/20 04:10 Pulse Ox 96 12/19/20 04:10 Intake & Output 12/18/20 12/19/20 12/19/20 18:59 06:59 18:59 Weight 99.819 kg Laboratory Last Values Urine Color Yellow 12/19/20 01:44 Urine Appearance Cloudy (Clear) 12/19/20 01:44 Urine pH 6.0 (5.0-8.0) 12/19/20 01:44 Ur Specific [place] 1.027 (1.001-1.035) 12/19/20 01:44 Urine Protein 2+ (Negative) H 12/19/20 01:44 Urine Glucose (UA) Negative (Negative) 12/19/20 01:44 Urine Ketones Negative (Negative) 12/19/20 01:44 Urine Blood Negative (Negative) 12/19/20 01:44 Urine Nitrite Negative (Negative) 12/19/20 01:44 Urine Bilirubin Negative (Negative) 12/19/20 01:44 Urine Urobilinogen 3.0 mg/dL (<2.0) 12/19/20 01:44 Ur Leukocyte Esterase Negative (Negative) 12/19/20 01:44 Urine RBC 2 /hpf (0-5) 12/19/20 01:44 Urine WBC 8 /hpf (0-5) H 12/19/20 01:44 Calcium Oxalate Crystal Many /hpf (None) H 12/19/20 01:44 Amorphous Sediment Rare /hpf (None) H 12/19/20 01:44 Urine Bacteria Rare /hpf (None) H 12/19/20 01:44 Hyaline Casts 14 /lpf (0-2) H 12/19/20 01:44 Urine Mucus Many /hpf (None) H 12/19/20 01:44 Urine Opiates Screen Not Detected (NotDetected) 12/19/20 01:44 Ur Oxycodone Screen Not Detected (NotDetected) 12/19/20 01:44 Urine Methadone Screen Not Detected (NotDetected) 12/19/20 01:44 Ur Propoxyphene Screen Not Detected (NotDetected) 12/19/20 01:44 Ur Barbiturates Screen Not Detected (NotDetected) 12/19/20 01:44 U Tricyclic Antidepress Detected (NotDetected) H 12/19/20 01:44 Ur Phencyclidine Scrn Not Detected (NotDetected) 12/19/20 01:44 Ur Amphetamines Screen Detected (NotDetected) H 12/19/20 01:44 U Methamphetamines Scrn Detected (NotDetected) H 12/19/20 01:44 U Benzodiazepines Scrn Not Detected (NotDetected) 12/19/20 01:44 Urine Cocaine Screen Detected (NotDetected) H 12/19/20 01:44 U Marijuana (THC) Screen Not Detected (NotDetected) 12/19/20 01:44 12/19/20 10:04 Identification: Herberth Cat is a 50 years old white male living in [facility]. He was readmitted to [facility] for psychiatric evaluation since he was thought to be abusing methamphetamine and became psychotic. History of present illness: When asked for the reasons for coming to hospital, patient said he went to the [place] house bought meth and when he came out he saw several data analytics chief scientist around the house. He got scared, looked around and went to his sober living house. In the process he was trying to hide the drugs and was trying to avoid the data analytics chief scientist. He had some math with him and he he hid it in his room. Since he was high on meth and was making paranoid statements the house managers wanted him to come to the hospital. He continued to feel people were after him where seeing them and sometimes thought their feet were dangling from the rooftop. He was very anxious and scared. His history appears to change somewhat. He said he has been using meth by snorting smoking or shooting since 2014 and May use $20-$40 worth a day at times he said he has been smoking or shooting cocaine since age 16 and last use was in June of this year. He said he has done almost every drug in the past, was in Suboxone clinic, abusing heroine also. He denies abusing alcohol. He smokes about 1 pack of cigarettes a day and also chews tobacco a can lasting for one week. He said he was first diagnosed with bipolar disorder in 2007 or 2008. He said his depression is continuous and it gets worse for 2-3 days. His manic episodes last for up to 2 days. But he later on said he was high on drugs when he was going to school had several girlfriends was in multiple fights etc. and so, his history of bipolar disorder starting before he started to abuse drugs does not appear to be correct. Previous psychiatric history/drug and alcohol abuse: He said he was in psychiatric hospitals for more than 20 times and was also in rehab for more than 20 times. He is currently in sober living house in [facility] since about June of this year. His UDS is positive only for stimulants He said he quit/kicked out of school in 10th grade and got his GED later on. He said he was high on drugs and had lots of girlfriends. He was in several fights, was suspended and kicked out of school several times. He was in juvenile court system for 4 years. He was in nursing home for 10 years for armed robbery. He has pending warrant from [facility] for assault and failure to appear. He said he was for 6 years and has been since 2003. He has a girlfriend these days. He does not have any children. He was raised by his parents and he denies being abused. He has Medicaid health insurance. Currently he is unemployed and stays in one or the other rehab places. Family history: He said his mother had schizophrenia bipolar disorder and seizures. He said she of complications of gallbladder surgery. He said his father of heart attack in his sleep. His brother is in nursing home for murder. Previous medical history: He has chronic low back pain, had right shoulder surgery to repair the injury, had surgery for Pilinoidal cyst, had colonoscopy and polyps removed. He denies any ALLERGIES. Mental status examination: This is a well-built tall ambulatory white male with good hygiene. He has well trimmed cadena and mustache and has clean haircut. He does not show any psychomotor agitation or retardation. However he looks around the office and at the door often. His speech is spontaneous and goal-directed. Appears to be preoccupied with the police watching him or trying to come after him. His mood is mildly anxious and fearful. Affect is appropriate to the thought content. He denies formal hallucinations but reports of what appears to be visual hallucinations of the police coming after him. He denies suicide and homicide thoughts. He is well oriented with good memory general fund of knowledge and concentration. His insight is fair and judgment is impaired as evidenced by continued substance abuse and asking for Xanax Narco Suboxone and other controlled substances. 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 Plan: He already had his physical examination. He will have psychosocial evaluation. I will discontinue his Zoloft since he said it has not been helping him and does not appear to be indicated for his condition. Continue Seroquel 200 mg at bedtime to help him sleep and for his psychosis. Monitor his condition and provided comfort and care. Discharge with outpatient follow-up.
[2020-12-19 11:47] LABS: Basophils % (A) 0 %; Eosinophils # (A) 0.2 k/uL (0-0.7); Eosinophils % (A) 2 %; HGB 15.9 gm/dL (13.0-17.5); Lymphocytes # (A) 2.6 k/uL (1.0-4.8); Lymphocytes % (A) 23 %; MCH 33.2 pg (25.0-35.0); MCHC 35.3 g/dL (31.0-37.0); Mean Platelet Volume 8.8; Monocytes # (A) 0.7 k/uL (0-1.0); Monocytes % (A) 6 %; Neutrophils # (A) 7.5 k/uL (1.3-7.7); Neutrophils % (A) 67 %; Platelet Count 180 k/uL (150-450); RBC 4.79 m/uL (4.30-5.90); RDW 13.3 % (11.5-15.5); WBC 11.2 k/uL (3.8-10.6)
[2020-12-19 12:02] LABS: ALT 159 U/L (4-49); AST 135 U/L (17-59); African American GFR (CKD) >90 (>60 ml/min/1.73 sqM); Albumin 4.9 g/dL (3.5-5.0); Alkaline Phosphatase 72 U/L (38-126); Anion Gap 11 mmol/L; Blood Urea Nitrogen 18 mg/dL (9-20); Carbon Dioxide 22 mmol/L (22-30); Chloride 104 mmol/L (98-107); Glucose 101 mg/dL (74-99); Non-African American GFR(CKD) >90 (>60 ml/min/1.73 sqM); Potassium 4.3 mmol/L (3.5-5.1); Sodium 137 mmol/L (137-145); Total Bilirubin 0.9 mg/dL (0.2-1.3); Total Protein 8.2 g/dL (6.3-8.2)
[2020-12-19] MEDS: OLANZapine 10 MG TAB PO PRN (12:37)
[2020-12-19] MEDS: PANTOPRAZOLE 40 MG TABLET PO SCH (13:01)
[2020-12-19] MEDS: QUEtiapine 200 MG TAB PO SCH (20:14)
[2020-12-19 22:35] LABS: Hemoglobin A1C 5.2 % (4.0-6.0)
[2020-12-20] MEDS: HALOPERIDOL LACTATE 5 MG/ML 1 ML VIAL IM PRN ×2 (00:01→21:59)
--- NOTE | 2020-12-20 01:29 | P.PN ---
Progress Note - Text Progress Note Date: 12/20/20 The patient refused to be evaluated or answer questions. Will attempt again tomorrow.
[2020-12-20] MEDS: PANTOPRAZOLE 40 MG TABLET PO SCH (08:58)
[2020-12-20] MEDS: NICOTINE 21MG/24HR PATCH TRANSDERM SCH (08:58)
[2020-12-20] MEDS: TAMSULOSIN 0.4 MG CAP.ER.24H PO SCH (08:59)
[2020-12-20] MEDS: LORazepam 1 MG TAB PO PRN ×2 (09:00→15:49)
[2020-12-20 09:03] VITALS: RESP 16
[2020-12-20] MEDS: OLANZapine 10 MG TAB PO PRN ×2 (11:06→19:26)
--- NOTE | 2020-12-20 11:13 | P.PN ---
Progress Note - Text Progress Note Date: 12/20/20 S&O: Patient was seen for a follow-up examination. He had just finished his interview with the [facility] regarding going through a rehab program again. Apparently he was accepted but, there is a waiting period Of about 3 weeks. [facility] is trying to get him admitted to another facility is earlier than that. Patient said he doesn't have much choice except to wait. [facility] person and I are concerned how he can stay sober and clean until then. Patient said he will stay clean and sober but does not have any particular plan for it. He was in a rehab place prior to his admission here and was still abusing drugs. As he had told me yesterday during intake he has gone through about 20 rehabs in the past and he still abuses drugs. He feels calmer but in spite of saying that he will stay sober and clean he is asking for Xanax and when necessary Ativan. When he was advised that he should focus on taking medicine without abuse potential he said he knows about it and still wants to take Ativan or Xanax when necessary. Counseling is ineffective. Yesterday he became irate demanding to leave got whe n necessary medications, settled down a little and then wrote an AMA request for discharge. He was counseled about the procedure for AMA discharge. He had refused physical examination yesterday. This is a well-built tall ambulatory white male with good hygiene. He has well trimmed cadena and mustache and has clean haircut. He does not show any psychomotor agitation or retardation. Today, he is not looking around the office and at the door like he did yesterday. His speech is spontaneous and goal-directed. Does not appear to be preoccupied with the police watching him or trying to come after him today. But, he still feels the police are after him and looking for him at times. His mood is still mildly anxious and fearful. Affect is appropriate to the thought content. He denies formal hallucinations but reports of what appears to be visual hallucinations of the police coming after him. He denies suicide and homicide thoughts. He is well oriented with good memory general fund of knowledge and concentration. His insight is fair and judgment is impaired as evidenced by continued substance abuse and asking for Xanax, Ativan, Narco, Suboxone and other controlled substances. 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 Plan: Dr. Nunez is planning on seeing him again today for physical examination. Continue Seroquel 200 mg at bedtime to help him sleep and for his psychosis. Monitor his condition and provided comfort and care. Discharge with outpatient follow-up.
--- NOTE | 2020-12-20 14:09 | P.CONS ---
<Socrates Coe - Last Filed: 12/20/20 13:51> History of Present Illness - Reason for Consult Consult date: 12/20/20 - History of Present Illness History of Presenting Illness: Patient is a 50-year-old male with a past medical history of hypertension, hyperlipidemia, BPH, anxiety, herpes, nicotine dependence, and methamphetamine use. Patient is currently admitted to inpatient mental health unit under psy chiatry team and we have been consulted for continued medical management. Patient was seen and fully evaluated on unit and was alert and oriented to person, place, time, and situation. He reports feeling anxious and depressed but currently denies having any suicidal or homicidal ideations. He reports that he smokes approximately one pack of cigarettes daily and has done so for the past 30 years. He denies having any alcohol use but does report using meth approximately once every couple weeks. Patient reports normal appetite, urinary, and bowel function. He denies having any headache, lightheadedness, dizziness, changes in vision or hearing, chest pain or palpitations, shortness of breath, dyspnea with exertion, abdominal pain, nausea, vomiting, or experiencing any numbness/tingling/weakness in extremities. Review of systems: Pertinent positives and negatives as discussed in HPI, a complete review of systems was performed and all other systems are negative. Physical exam: Vital signs reviewed and stable. General: Nontoxic, no distress and appears stated age. Derm: Skin warm and dry, normal coloration for ethnicity. Head: Atraumatic, normocephalic and symmetric. Eyes: EOMs intact, no lid lag, and anicteric sclera Mouth: no lip lesions, mucus membranes moist Cardiovascular: regular rate and rhythm with normal S1S2, no murmur, positive posterior tibial pulses bilaterally, and cap refill < 2 seconds. Lungs: Respirations even, regular, and unlabored on room air. Lungs CTA bilater ally, no rhonchi, no rales, no wheezing, and no accessory muscle usage. Abdominal: soft, nontender to palpation, no guarding, no appreciable organomegaly Ext: ROM intact. No gross muscle atrophy, no edema, no contractures Neuro: Speech clear, face symmetrical and CN II-XII grossly intact with no noted focal neuro deficits Psych: Alert and oriented to person, place, time, and situation. Appropriate and pleasant affect. Assessment and Plan of Care: Methamphetamine use/abuse -Continue to encourage and educate the patient on the importance of cessation and the risks associated with continued use Hypertension -Monitor vital signs and continue daily medication regimen with metoprolol and losartan. Hyperlipidemia -Continue daily medication regimen with atorvastatin. -Encourage heart healthy diet. BPH -Continue daily medication regimen with Flomax. Anxiety with stimulant-induced psychotic disorder -Treatment per primary admitting team psychiatric team. Herpes -Continue daily medication regimen with Valtrex. Nicotine dependence -Continue to encourage and educate the patient on the importance of smoking cessation and the risks of continued use. -Nicotine patch. . Thank you for allowing us to participate in the care of this pleasant patient. Do not hesitate to contact us with questions. Someone can be reached from the [facility] [place] [facility] all hours of the day at [phone] or via [employer]. Past Medical History Past Medical History: Hypertension, Prostate Disorder Additional Past Medical History / Comment(s): colon polyps History of Any Multi-Drug Resistant Organisms: None Reported Past Surgical History: Orthopedic Surgery Additional Past Surgical History / Comment(s): rt shoulder Past Anesthesia/Blood Transfusion Reactions: No Reported Reaction Past Psychological History: Anxiety, Bipolar, Depression Smoking Status: Current every day smoker Past Alcohol Use History: Rare Past Drug Use History: Methamphetamine Additional Drug Use History / Comment(s): Information reported by patient. Medications and Allergies Home Medications Medication Instructions Recorded Confirmed Type Atorvastatin [Lipitor] 40 mg PO DAILY 10/01/20 12/19/20 History Diclofenac Sodium [Voltaren] 75 mg PO AC-BID 10/01/20 12/19/20 History Losartan [Cozaar] 50 mg PO DAILY 10/01/20 12/19/20 History Metoprolol Succinate (ER) [Toprol 50 mg PO DAILY 10/01/20 12/19/20 History XL] Pantoprazole Sodium [Protonix] 40 mg PO AC-BRKFST 10/01/20 12/19/20 History Tamsulosin HCl [Flomax] 0.4 mg PO DAILY 10/01/20 12/19/20 History valACYclovir HCL [Valtrex] 1,000 mg PO DAILY 10/01/20 12/19/20 History Acetaminophen Tab [Tylenol] 650 mg PO Q4HR PRN tab 10/04/20 12/19/20 Rx Nicotine 14Mg/24Hr Patch [Habitrol] 1 patch TRANSDERM DAILY 14 Days 10/04/20 12/19/20 Rx patch QUEtiapine [SEROquel] 200 mg PO HS 30 Days tab 10/04/20 12/19/20 Rx Sertraline [Zoloft] 100 mg PO DAILY 30 Days tab 10/10/20 12/19/20 Rx Allergies Allergy/AdvReac Type Severity Reaction Status Date / Time No Known Allergies Allergy Verified 12/19/20 04:31 Physical Exam Vitals: Vital Signs Pulse Resp BP 12/20/20 09:01 135 H 16 116/78 Intake and Output 12/19/20 12/20/20 12/20/20 22:59 06:59 14:59 Other: Weight 99.819 kg Results CBC & Chem 7: 12/19/20 11:12 12/19/20 11:12 <Gomez Orr - Last Filed: 12/20/20 14:54> Physical Exam Osteopathic Statement: *. No significant issues noted on an osteopathic structural exam other than those noted in the History and Physical/Consult. Vitals: Vital Signs Pulse Resp BP 12/20/20 09:01 135 H 16 116/78 Intake and Output 12/19/20 12/20/20 12/20/20 22:59 06:59 14:59 Other: Weight 99.819 kg Results CBC & Chem 7: 12/19/20 11:12 12/19/20 11:12 Assessment and Plan Assessment: I reviewed the documentation as provided by the ALONZO above, who is the original author of this note. I agree with the documented assessment and plan, with the following changes: none
[2020-12-20] MEDS ORDERED: METOPROLOL SUCCINATE (ER) 50 MG TAB.ER.24H PO STA (21:37)
[2020-12-20] MEDS: QUEtiapine 200 MG TAB PO SCH (21:55)
[2020-12-20] MEDS ORDERED: LORazepam 2 MG/ML INJ IM PRN (22:34)
[2020-12-20] MEDS ORDERED: HALOPERIDOL LACTATE 5 MG/ML 1 ML VIAL IM STA (23:48)
[2020-12-20] MEDS ORDERED: haloperidoL 5 MG TAB PO STA (23:48)
[2020-12-21] MEDS: LOSARTAN 50 MG TAB PO SCH (08:28)
[2020-12-21] MEDS: ATORVASTATIN 40 MG TAB PO SCH (08:28)
[2020-12-21] MEDS: valACYclovir HCL 1,000 MG TABLET PO SCH (08:28)
[2020-12-21] MEDS: METOPROLOL SUCCINATE (ER) 50 MG TAB.ER.24H PO SCH (08:28)
[2020-12-21] MEDS: TAMSULOSIN 0.4 MG CAP.ER.24H PO SCH (08:28)
[2020-12-21] MEDS: NICOTINE 21MG/24HR PATCH TRANSDERM SCH (08:28)
[2020-12-21] MEDS: PANTOPRAZOLE 40 MG TABLET PO SCH (08:28)
[2020-12-21] MEDS: LORazepam 1 MG TAB PO PRN ×3 (08:29→20:39)
--- NOTE | 2020-12-21 12:52 | P.PN ---
Progress Note - Text Progress Note Date: 12/21/20 Interval History: Patient was seen for follow-up examination . This is a 50-year-old m chaz. According to his records he presented psychotic which thought to be related to methamphetamine use. Patient states he was having hallucinations and felt paranoid. Patient states he woke up this morning feeling better. He states that he slept well last night. He states the hallucinations and paranoia are lessening. Patient talked about his sobriety plan which is to go back to NA meetings and to start therapy. At this time patient denies any suicidal or homical ideations, intent or plan. Patient denies any auditory, visual hallucinations and denies any paranoia or delusions. Patient denies any side effects from the medications and has been compliant with meds. Mental Status Exam: General Appearance: Patient appears to be stated age is alert, directable, and cooperative. Behavior: Patient is calmly seated without any agitated behavior. Speech: Patient's speech is fluent and nonpressured. Mood/Affect: Mood is improving mildly, affect is congruent and constricted. Suicidality/Homicidality: Patient denies having any suicidal or homicidal ideation intent or plan. Perceptions: Patient denies any visual hallucinations and denies any auditory hallucinations Though content/process: There is no evidence of any delusional thought content and thought process is linear and goal-directed. Memory and concentration: AOX3, grossly intact for the purposes of this session Judgment and insight: Improving mildly Assessment Stimulant induced psychotic disorder Stimulant use disorder There is a concern about possible personality disorder NOS with antisocial features Plan: -Patient continues to meet criteria for inpatient psychiatric admission for symptom stabilization and safety. -Medications: Kidney Seroquel 200 mg nightly and monitor -When necessary Ativan and Haldol for agitation/aggression. -NRT - nicotine patch -SW on board for discharge planning. Encouraged the patient to participate in milieu.
[2020-12-21] MEDS: QUEtiapine 200 MG TAB PO SCH (20:39)
[2020-12-22] MEDS: TAMSULOSIN 0.4 MG CAP.ER.24H PO SCH (08:00)
[2020-12-22] MEDS: NICOTINE 21MG/24HR PATCH TRANSDERM SCH (08:00)
[2020-12-22] MEDS: PANTOPRAZOLE 40 MG TABLET PO SCH (08:00)
[2020-12-22] MEDS: METOPROLOL SUCCINATE (ER) 50 MG TAB.ER.24H PO SCH (08:00)
[2020-12-22] MEDS: LOSARTAN 50 MG TAB PO SCH (08:01)
[2020-12-22] MEDS: LORazepam 1 MG TAB PO PRN ×3 (08:01→19:44)
[2020-12-22] MEDS: ATORVASTATIN 40 MG TAB PO SCH (08:01)
[2020-12-22] MEDS: valACYclovir HCL 1,000 MG TABLET PO SCH (08:01)
[2020-12-22] MEDS: OLANZapine 10 MG TAB PO PRN (12:13)
--- NOTE | 2020-12-22 14:44 | P.PN ---
Progress Note - Text Progress Note Date: 12/22/20 Interval History: Patient was seen wandering the hallways and was directable and agreeable to anastasiia louis with internal communications writer in the office. [This is a 50-year-old male. According to his records he presented psychotic which thought to be related to methamphetamine use. Patient wants to be discharged today. He states " I had the hallucinations because I was high on meth" . He reported feeling better this morning. He states that he slept well last night. He states the hallucinations and paranoia are gone. Patient talked about his sobriety plan which is to go back to NA meetings and to start therapy. At this time patient denies any suicidal or homical ideations, intent or plan. Patient denies any auditory, visual hallucinations and denies any paranoia or delusions. Patient denies any side effects from the medications and has been compliant with meds. Mental Status Exam: General Appearance: Patient appears to be stated age is alert, directable, and cooperative. Behavior: Patient is calmly seated without any agitated behavior. Speech: Patient's speech is fluent and nonpressured. Mood/Affect: Mood is improving mildly, affect is congruent and constricted. Suicidality/Homicidality: Patient denies having any suicidal or homicidal ideation intent or plan. Perceptions: Patient denies any visual hallucinations and denies any auditory hallucinations Though content/process: There is no evidence of any delusional thought content and thought process is linear and goal-directed. Memory and concentration: AOX3, grossly intact for the purposes of this session Judgment and insight: Improving mildly Assessment Stimulant induced psychotic disorder Stimulant use disorder There is a concern about possible personality disorder NOS with antisocial features Plan: -Patient continues to meet criteria for inpatient psychiatric admission for symptom stabilization and safety. -Medications: contniue Seroquel 200 mg nightly and monitor -When necessary Ativan and Haldol for agitation/aggression. -NRT - nicotine patch -SW on board for discharge planning. Encouraged the patient to participate in milieu.
--- NOTE | 2020-12-22 17:55 | P.PN ---
Progress Note - Text Progress Note Date: 12/22/20 Patient seen and examined. He is complaining of pain above his buttock. He has a history of pilonidal cyst and has required it to be drained multiple times seen by Dr. Sapp. He states it started over the last 2 days and has been getting worse and more painful. General: non toxic, no distress, appears at stated age Derm: to the left of the cephalad area of gluteal is a rais macule without fluctuance approx 1.5 X 1.5 CM without warmth with overlying erythema Head: atraumatic, normocephalic, symmetric Neuro: CN II-XI grossly intact, no focal neuro deficits, normal phases of gait Psych: Alert, oriented, appropriate affect Pilonidal cyst -Without extensive overlying cellulitis -Recommend incision and drainage. Consult surgery. Ideally patient should have this done without delay. It could be done in the next 1-2 days would be ideal -Pain control -Sitz baths Hypertension -Controlled -Continue with Cozaar and metoprolol
[2020-12-22] MEDS: HYDROcodone/APAP 5-325MG 1 EACH TAB PO PRN (18:29)
[2020-12-22] MEDS: IBUPROFEN 600 MG TAB PO PRN (20:52)
[2020-12-22] MEDS: QUEtiapine 200 MG TAB PO SCH (20:53)
[2020-12-23] MEDS: HYDROcodone/APAP 5-325MG 1 EACH TAB PO PRN ×2 (00:43→08:05)
[2020-12-23] MEDS: IBUPROFEN 600 MG TAB PO PRN (04:46)
[2020-12-23 04:50] VITALS: TEMP 97.1
[2020-12-23 08:02] VITALS: BP 121/85; PULSE 105
[2020-12-23] MEDS: PANTOPRAZOLE 40 MG TABLET PO SCH (08:05)
[2020-12-23] MEDS: valACYclovir HCL 1,000 MG TABLET PO SCH (08:05)
[2020-12-23] MEDS: TAMSULOSIN 0.4 MG CAP.ER.24H PO SCH (08:05)
[2020-12-23] MEDS: NICOTINE 21MG/24HR PATCH TRANSDERM SCH (08:05)
[2020-12-23] MEDS: LOSARTAN 50 MG TAB PO SCH (08:05)
[2020-12-23] MEDS: METOPROLOL SUCCINATE (ER) 50 MG TAB.ER.24H PO SCH (08:05)
[2020-12-23] MEDS: ATORVASTATIN 40 MG TAB PO SCH (08:05)
[2020-12-23] MEDS: LORazepam 1 MG TAB PO PRN (08:05)
--- NOTE | 2020-12-23 09:54 | P.DS ---
Providers Date of admission: 12/19/20 03:44 Expected date of discharge: 12/23/20 Attending physician: Derrick Martin MD Consults: 12/19/20 03:52 Consult Physician Routine Consulting Provider: Norman Bartholomew Consult Reason/Comments: For H & P for Medical Follow Up Do you want consulting provider notified?: Yes Primary care physician: Jolly Molina - Discharge Diagnosis(es) (1) Drug-induced psychotic disorder with hallucinations Current Visit: Yes Status: Acute Priority: High (2) Methamphetamine abuse Current Visit: Yes Status: Acute Priority: High (3) Cocaine use disorder Current Visit: Yes Status: Acute Priority: High (4) Antisocial personality disorder Current Visit: Yes Status: Acute Priority: High Hospital Course: Admission HPI: Admission note was completed by credit underwriter "Herberth Cat is a 50 years old white male living in [facility]. He was readmitted to [facility] for psychiatric evaluation since he was thought to be ab using methamphetamine and became psychotic. When asked for the reasons for coming to hospital, patient said he went to the [facility] house bought meth and when he came out he saw several regulatory compliance manager around the house. He got scared, looked around and went to his sober living house. In the process he was trying to hide the drugs and was trying to avoid the regulatory compliance manager. He had some math with him and he he hid it in his room. Since he was high on meth and was making paranoid statements the house managers wanted him to come to the hospital. He continued to feel people were after him where seeing them and sometimes thought their feet were dangling from the rooftop. He was very anxious and scared. His history appears to change somewhat. He said he has been using meth by snorting smoking or shooting since 2014 and May use $20-$40 worth a day at times he said he has been smoking or shooting cocaine since age 16 and last use was in June of this year. He said he has done almost every drug in the past, was in Sub[facility] clinic, abusing heroine also. He denies abusing alcohol. He smokes about 1 pack of cigarettes a day and also chews tobacco a can lasting for one week. He said he was first diagnosed with bipolar disorder in 2007 or 2008. He said his depression is continuous and it gets worse for 2-3 days. His manic episodes last for up to 2 days. But he later on said he was high on drugs when he was going to school had several girlfriends was in multiple fights etc. and so, his history of bipolar disorder starting before he started to abuse drugs does not appear to be correct." Hospital course: Upon admission to the unit patient was initially psychotic and experiencing hallucinations. Patient was however directable and agreeable to commence treatment and signed adult voluntary form. Shortly after patient signed AMA form which came up for expiration on 12/23/2020 at 12:40 PM and credit underwriter attempted to speak with patient about his options however patient refused to revoke the AMA. Patient got along well with other patients on the unit and followed unit protocol. Patient was compliant with the medications and denied any side effects throughout hospital course. Patient was started on Seroquel 200 mg daily at bedtime for mood stabilization/psychosis/insomnia. Patient spoke of his stressors and engaged in therapy both group and individual. Patient was also seen by medical team for history and physical exam. Patient was seen by internal medicine who recommended that patient have the pilonidal cyst drained in the next couple of days and suggested [place] as a pain reliever until it is to be drained however patient claims that he did not want to wait for the surgery consult and would rather go to either the urgent care or the emergency room to have it drained and treated after discharge. Throughout the course of the hospitalization patient gradually improved with regards to mood, anxiety, sleep and return back to his baseline level of functioning. On the day of discharge patient denied any suicidal or homicidal ideations intent or plan denied any auditory or visual hallucinations. Patient endorsed wanting to live for his future and his sobriety. The patient denied any access to guns or weapons. Patient denied any paranoia and did not endorse any delusions. Patient does have a significant history of substance abuse and was counseled on abstaining from all substances including alcohol and marijuana. Patient claims that she wants to go to [facility] rehab in [place] after discharge and having his cyst treated. Patient was given access line number however did not make the call and was fairly superficial and persistent on discharge today. Patient was also counseled on the medications and need for regular compliance and was encouraged to follow-up with their outpatient appointment for mental health and also for primary care. Mental status exam: General Appearance: Patient appears to be tall, stated age is alert, directable, and cooperative. Patient is in no acute distress and has improved hygiene and grooming Behavior: Patient is calmly seated without any agitated behavior. Speech: Patient's speech is fluent and nonpressured. Mood/Affect: Patient reports their mood is "good", affect is congruent Suicidality/Homicidality: Patient denies having any suicidal or homicidal ideation intent or plan. Perceptions: Patient denies any auditory or visual hallucinations. Though content/process: There is no evidence of any delusional thought content and thought process is linear and goal-directed. Memory and concentration: AOX3, grossly intact for the purposes of this session. Can spell "WORLD" backwards correctly. Judgment and insight: chronically poor, however has improved with guarded prognosis Impression: Drug-induced psychotic disorder Methamphetamine abuse Cocaine use disorder Plan: -Continue with discharge today as patient has improved and stabilized psychiatrically and is not currently an imminent threat to himself and/or others. Patient will remain at chronically elevated risk for harm to self and/or others due to his impulsivity, chronically poor judgment and polysubstance abuse. -Continue medications: Seroquel 200 mg daily at bedtime for mood stabilization/insomnia/psychosis. Patient was given 1 day supply of [place] as recommended by hospitalist for pain as needed. -Patient was counseled on the need for medication compliance and appropriate follow-up at mental health and also primary care for medical issues. Patient verbalized understanding and agreed. -Social work to regenerate to patient's friend where he will be staying until patient goes to [facility] for rehab. Social work also to arrange for patients follow up appointments with [facility] for psychiatric care along with follow up with primary care provider. -Patient counseled on abstaining from recreational drugs and marijuana and alcohol. Was informed/educated on the adverse effects on their physical and mental health. Patient verbally agreed and understood. Patient was offered substance abuse treatment and states that he will be making the call to the access line to get into rehab within the next 1-2 days after he gets more urgent care for his pilonidal cyst. -Patient was instructed to return to the hospital or seek immediate medical care if their psychiatric or medical symptoms do worsen or reoccur. Allergies Allergy/AdvReac Type Severity Reaction Status Date / Time No Known Allergies Allergy Verified 12/19/20 04:31 Laboratory Results WBC 11.2 k/uL (3.8-10.6) H 12/19/20 11:12 RBC 4.79 m/uL (4.30-5.90) 12/19/20 11:12 Hgb 15.9 gm/dL (13.0-17.5) 12/19/20 11:12 Hct 45.0 % (39.0-53.0) 12/19/20 11:12 MCV 94.0 fL (80.0-100.0) 12/19/20 11:12 MCH 33.2 pg (25.0-35.0) 12/19/20 11:12 MCHC 35.3 g/dL (31.0-37.0) 12/19/20 11:12 RDW 13.3 % (11.5-15.5) 12/19/20 11:12 Plt Count 180 k/uL (150-450) 12/19/20 11:12 MPV 8.8 12/19/20 11:12 Neutrophils % 67 % 12/19/20 11:12 Lymphocytes % 23 % 12/19/20 11:12 Monocytes % 6 % 12/19/20 11:12 Eosinophils % 2 % 12/19/20 11:12 Basophils % 0 % 12/19/20 11:12 Neutrophils # 7.5 k/uL (1.3-7.7) 12/19/20 11:12 Lymphocytes # 2.6 k/uL (1.0-4.8) 12/19/20 11:12 Monocytes # 0.7 k/uL (0-1.0) 12/19/20 11:12 Eosinophils # 0.2 k/uL (0-0.7) 12/19/20 11:12 Basophils # 0.0 k/uL (0-0.2) 12/19/20 11:12 Sodium 137 mmol/L (137-145) 12/19/20 11:12 Potassium 4.3 mmol/L (3.5-5.1) 12/19/20 11:12 Chloride 104 mmol/L (98-107) 12/19/20 11:12 Carbon Dioxide 22 mmol/L (22-30) 12/19/20 11:12 Anion Gap 11 mmol/L 12/19/20 11:12 BUN 18 mg/dL (9-20) 12/19/20 11:12 Creatinine 0.92 mg/dL (0.66-1.25) 12/19/20 11:12 Est GFR (CKD-EPI)AfAm >90 (>60 ml/min/1.73 sqM) 12/19/20 11:12 Est GFR (CKD-EPI)NonAf >90 (>60 ml/min/1.73 sqM) 12/19/20 11:12 Glucose 101 mg/dL (74-99) H 12/19/20 11:[address] Glu mg/dL 103 12/19/20 11:12 Hemoglobin A1c 5.2 % (4.0-6.0) 12/19/20 11:12 Calcium 10.0 mg/dL (8.4-10.2) 12/19/20 11:12 Total Bilirubin 0.9 mg/dL (0.2-1.3) 12/19/20 11:12 AST 135 U/L (17-59) H 12/19/20 11:12 ALT 159 U/L (4-49) H 12/19/20 11:12 Alkaline Phosphatase 72 U/L (38-126) 12/19/20 11:12 Total Protein 8.2 g/dL (6.3-8.2) 12/19/20 11:12 Albumin 4.9 g/dL (3.5-5.0) 12/19/20 11:12 TSH 3.060 mIU/L (0.465-4.680) 12/19/20 11:12 Urine Color Yellow 12/19/20 01:44 Urine Appearance Cloudy (Clear) 12/19/20 01:44 Urine pH 6.0 (5.0-8.0) 12/19/20 01:44 Ur Specific [place] 1.027 (1.001-1.035) 12/19/20 01:44 Urine Protein 2+ (Negative) H 12/19/20 01:44 Urine Glucose (UA) Negative (Negative) 12/19/20 01:44 Urine Ketones Negative (Negative) 12/19/20 01:44 Urine Blood Negative (Negative) 12/19/20 01:44 Urine Nitrite Negative (Negative) 12/19/20 01:44 Urine Bilirubin Negative (Negative) 12/19/20 01:44 Urine Urobilinogen 3.0 mg/dL (<2.0) 12/19/20 01:44 Ur Leukocyte Esterase Negative (Negative) 12/19/20 01:44 Urine RBC 2 /hpf (0-5) 12/19/20 01:44 Urine WBC 8 /hpf (0-5) H 12/19/20 01:44 Calcium Oxalate Crystal Many /hpf (None) H 12/19/20 01:44 Amorphous Sediment Rare /hpf (None) H 12/19/20 01:44 Urine Bacteria Rare /hpf (None) H 12/19/20 01:44 Hyaline Casts 14 /lpf (0-2) H 12/19/20 01:44 Urine Mucus Many /hpf (None) H 12/19/20 01:44 Urine Opiates Screen Not Detected (NotDetected) 12/19/20 01:44 Ur Oxycodone Screen Not Detected (NotDetected) 12/19/20 01:44 Urine Methadone Screen Not Detected (NotDetected) 12/19/20 01:44 Ur Propoxyphene Screen Not Detected (NotDetected) 12/19/20 01:44 Ur Barbiturates Screen Not Detected (NotDetected) 12/19/20 01:44 U Tricyclic Antidepress Detected (NotDetected) H 12/19/20 01:44 Ur Phencyclidine Scrn Not Detected (NotDetected) 12/19/20 01:44 Ur Amphetamines Screen Detected (NotDetected) H 12/19/20 01:44 U Methamphetamines Scrn Detected (NotDetected) H 12/19/20 01:44 U Benzodiazepines Scrn Not Detected (NotDetected) 12/19/20 01:44 Urine Cocaine Screen Detected (NotDetected) H 12/19/20 01:44 U Marijuana (THC) Screen Not Detected (NotDetected) 12/19/20 01:44 Vital Signs Temp 97.1 F L 12/23/20 04:49 Pulse 105 H 12/23/20 08:01 Resp 16 12/23/20 04:49 BP 121/85 12/23/20 08:01 Pulse Ox 96 12/23/20 04:49 Patient Condition at Discharge: Stable Plan - Discharge Summary Discharge Rx Participant: No New Discharge Prescriptions: New Nicotine 21Mg/24Hr Patch [Habitrol] 1 patch TRANSDERM DAILY patch HYDROcodone/APAP 5-325MG [[place] 5-325] 1 each PO Q6HR PRN #3 tab PRN Reason: Moderate Pain QUEtiapine [SEROquel] 200 mg PO HS 30 Days tab Ibuprofen [Motrin] 600 mg PO TID PRN 14 Days tab PRN Reason: Pain Continue Tamsulosin HCl [Flomax] 0.4 mg PO DAILY Diclofenac Sodium [Voltaren] 75 mg PO AC-BID Atorvastatin [Lipitor] 40 mg PO DAILY Pantoprazole Sodium [Protonix] 40 mg PO AC-BRKFST Metoprolol Succinate (ER) [Toprol XL] 50 mg PO DAILY valACYclovir HCL [Valtrex] 1,000 mg PO DAILY Losartan [Cozaar] 50 mg PO DAILY Discontinued QUEtiapine [SEROquel] 200 mg PO HS 30 Days tab Acetaminophen Tab [Tylenol] 650 mg PO Q4HR PRN tab PRN Reason: Pain/Discomfort Sertraline [Zoloft] 100 mg PO DAILY 30 Days tab Nicotine 14Mg/24Hr Patch [Habitrol] 1 patch TRANSDERM DAILY 14 Days patch Discharge Medication List Atorvastatin [Lipitor] 40 mg PO DAILY 10/01/20 [History] Diclofenac Sodium [Voltaren] 75 mg PO AC-BID 10/01/20 [History] Losartan [Cozaar] 50 mg PO DAILY 10/01/20 [History] Metoprolol Succinate (ER) [Toprol XL] 50 mg PO DAILY 10/01/20 [History] Pantoprazole Sodium [Protonix] 40 mg PO AC-BRKFST 10/01/20 [History] Tamsulosin HCl [Flomax] 0.4 mg PO DAILY 10/01/20 [History] valACYclovir HCL [Valtrex] 1,000 mg PO DAILY 10/01/20 [History] HYDROcodone/APAP 5-325MG [[place] 5-325] 1 each PO Q6HR PRN #3 tab 12/23/20 [Rx] Ibuprofen [Motrin] 600 mg PO TID PRN 14 Days tab 12/23/20 [Rx] Nicotine 21Mg/24Hr Patch [Habitrol] 1 patch TRANSDERM DAILY patch 12/23/20 [Rx] QUEtiapine [SEROquel] 200 mg PO HS 30 Days tab 12/23/20 [Rx] Follow up Appointment(s)/Referral(s): Jolly Molina MD [Primary Care Provider] - 1-2 days Activity/Diet/Wound Care/Special Instructions: Activity and diet as tolerated. Avoid the use of street drugs and alcohol. Take all medications as prescribed. When you are in need of refills on your medications please contact your medical provider and/or outpatient psychiatrist to have this done. Please go to scheduled outpatient appointment for aftercare treatment. If symptoms return or become worse, call the crisis line at and/or go to the nearest emergency room for evaluation. Discharge Disposition: HOME SELF-CARE
== END 2020-12-23 11:40 | disposition home or self-care (01) | DRG 897 ==
LOC: EC 00:33 → 3MHU 03:44
PROVIDERS: ADMIT Psychiatry & Neurology Psychiatry; ATTEND Psychiatry & Neurology Psychiatry
DX: F15.151 Other stimulant abuse with stimulant-induced psychotic disorder with hallucinations (principal); F31.30 Bipolar disorder, current episode depressed, mild or moderate severity, unspecified; F14.10 Cocaine abuse, uncomplicated; F15.159 Other stimulant abuse with stimulant-induced psychotic disorder, unspecified; I10 Essential (primary) hypertension; Z86.010 Personal history of colon polyps; F17.210 Nicotine dependence, cigarettes, uncomplicated; Z81.8 Family history of other mental and behavioral disorders; Z82.49 Family history of ischemic heart disease and other diseases of the circulatory system; G89.29 Other chronic pain; M54.5 Low back pain; N40.0 Benign prostatic hyperplasia without lower urinary tract symptoms; F41.9 Anxiety disorder, unspecified; E78.5 Hyperlipidemia, unspecified; B00.9 Herpesviral infection, unspecified; F60.2 Antisocial personality disorder; L05.91 Pilonidal cyst without abscess; G47.00 Insomnia, unspecified; Z79.899 Other long term (current) drug therapy
CPT/HCPCS: 80053; 80306; 81001; 82075; 83036; 84443; 85025; 96372; 99285

== ENCOUNTER 2020-12-23 12:35 | Emergency (ER) | payer OTHER ==
[2020-12-23 13:14] VITALS: RESP 18; TEMP 98.4
[2020-12-23] MEDS ORDERED: LIDOCAINE 1% INJ 10MG/ML (20 ML MDV) SQ ONE (15:20)
[2020-12-23] MEDS ORDERED: ACET/COD 300 MG/30 MG STARTER PACK 6 TAB BTL PO STA (15:57)
--- NOTE | 2020-12-23 16:01 | ED ---
General Adult HPI - General Chief complaint: Skin/Abscess/Foreign Body Stated complaint: wants cyst drained Time Seen by Provider: 12/23/20 14:59 Source: patient, RN notes reviewed Mode of arrival: ambulatory Limitations: no limitations - History of Present Illness Initial comments: Patient is a 50-year-old male that presents to the emergency department complaining of a pilonidal cyst. He notes he does have a history of these has had several removed surgically. He was otherwise a well-appearing 50-year-old male in no apparent distress or pain. He denied any chest pain shortness breath headache nausea vomiting diarrhea constipation fever fatigue chills. - Related Data Home Medications Medication Instructions Recorded Confirmed Atorvastatin [Lipitor] 40 mg PO DAILY 10/01/20 12/19/20 Diclofenac Sodium [Voltaren] 75 mg PO AC-BID 10/01/20 12/19/20 Losartan [Cozaar] 50 mg PO DAILY 10/01/20 12/19/20 Metoprolol Succinate (ER) [Toprol 50 mg PO DAILY 10/01/20 12/19/20 XL] Pantoprazole Sodium [Protonix] 40 mg PO AC-BRKFST 10/01/20 12/19/20 Tamsulosin HCl [Flomax] 0.4 mg PO DAILY 10/01/20 12/19/20 valACYclovir HCL [Valtrex] 1,000 mg PO DAILY 10/01/20 12/19/20 Previous Rx's Medication Instructions Recorded HYDROcodone/APAP 5-325MG [[place] 1 each PO Q6HR PRN #3 tab 12/23/20 5-325] Ibuprofen [Motrin] 600 mg PO TID PRN 14 Days tab 12/23/20 Nicotine 21Mg/24Hr Patch [Habitrol] 1 patch TRANSDERM DAILY patch 12/23/20 QUEtiapine [SEROquel] 200 mg PO HS 30 Days tab 12/23/20 Sulfamethox-Tmp 800-160Mg [Bactrim 1 each PO Q12HR #20 tab 12/23/20 Ds] Allergies Allergy/AdvReac Type Severity Reaction Status Date / Time No Known Allergies Allergy Verified 12/23/20 13:12 Review of Systems ROS Statement: Those systems with pertinent positive or pertinent negative responses have been documented in the HPI. ROS Other: All systems not noted in ROS Statement are negative. Past Medical History Past Medical History: Hypertension, Prostate Disorder Additional Past Medical History / Comment(s): colon polyps History of Any Multi-Drug Resistant Organisms: None Reported Past Surgical History: Orthopedic Surgery Additional Past Surgical History / Comment(s): rt shoulder Past Anesthesia/Blood Transfusion Reactions: No Reported Reaction Past Psychological History: Anxiety, Bipolar, Depression Smoking Status: Current every day smoker Past Alcohol Use History: Rare Past Drug Use History: Methamphetamine General Exam Limitations: no limitations General appearance: alert, in no apparent distress Head exam: Present: atraumatic, normocephalic, normal inspection Eye exam: Present: normal appearance, PERRL, EOMI. Absent: scleral icterus, conjunctival injection, periorbital swelling Neck exam: Present: normal inspection Respiratory exam: Present: normal lung sounds bilaterally. Absent: respiratory distress, wheezes, rales, rhonchi, stridor Cardiovascular Exam: Present: regular rate, normal rhythm, normal heart sounds. Absent: systolic murmur, diastolic murmur, rubs, gallop, clicks GI/Abdominal exam: Present: soft, normal bowel sounds. Absent: distended, tend erness, guarding, rebound, rigid Extremities exam: Present: normal inspection, full ROM, normal capillary refill. Absent: tenderness, pedal edema, joint swelling, calf tenderness Neurological exam: Present: alert, oriented X3 Psychiatric exam: Present: normal affect, normal mood Skin exam: Present: warm, dry, intact, normal color. Absent: rash Expanded Type of lesion: Present: abscess (At the gluteal cleft, 2 cm fluctuant mildly tender.) Course Vital Signs 12/23/20 13:12 Temperature 98.4 F Pulse Rate 109 H Respiratory 18 Rate Blood Pressure 145/89 O2 Sat by Pulse 96 Oximetry Procedures - Incision & Drainage Consent Obtained: verbal consent Site: buttock (Pilonidal) Anesthetic Used: lidocaine 1% Amount (mLs): 5 I&D Cleaning Method: Betadine Sterile Field Used?: Yes Scalpel Used: #11 Needle Aspiration Performed?: No Irrigation Performed?: No I&D Drainage Obtained: Pus, Blood Culture Obtained?: No Patient Tolerated Procedure: well, no complications Medical Decision Making - Medical Decision Making 50-year-old male with a pilonidal cyst. Lidocaine ordered. Area was cleaned well with Betadine and local anesthetic was administered. Patient tolerated procedure well. Case discussed with Dr. Cowan, patient discharge home with follow-up to primary care in general surgery as needed. Disposition Clinical Impression: Pilonidal cyst Disposition: HOME SELF-CARE Condition: Stable Instructions (If sedation given, give patient instructions): Abscess (ED), Abscess Incision and Drainage (DC) Additional Instructions: Please return to the Emergency Department if symptoms worsen or any other concerns. Follow-up with primary care in general surgery as needed within the next couple days. Take, Motrin as prescribed. Keep area is clean and dry as possible. Prescriptions: Sulfamethox-Tmp 800-160Mg [Bactrim Ds] 1 each PO Q12HR #20 tab Is patient prescribed a controlled substance at d/c from ED?: No Referrals: Jolly Molina MD [Primary Care Provider] - 1-2 days Jack Burnette DO [Doctor of Osteopathic Medicine] - 1-2 days Time of Disposition: 16:01
[2020-12-23 16:31] VITALS: BP 137/119; PULSE 84
== END 2020-12-23 16:25 | disposition home or self-care (01) ==
LOC: EC 12:35
DX: L05.91 Pilonidal cyst without abscess (principal); I10 Essential (primary) hypertension; F17.200 Nicotine dependence, unspecified, uncomplicated; Z79.1 Long term (current) use of non-steroidal anti-inflammatories (NSAID); Z79.899 Other long term (current) drug therapy; Z87.19 Personal history of other diseases of the digestive system
CPT/HCPCS: 87070; 87205; 10060; 99283; J2001

== ENCOUNTER 2020-12-23 22:43 | Emergency (ER) | payer OTHER ==
--- NOTE | 2020-12-23 23:06 | ED ---
General Adult HPI - General Chief complaint: Psychiatric Symptoms Stated complaint: Mental health Time Seen by Provider: 12/23/20 22:49 Source: patient, RN notes reviewed Mode of arrival: ambulatory Limitations: no limitations - History of Present Illness Initial comments: 50-year-old male with a past medical history of hypertension presents to the emergency room for a chief complaint of suicidal thoughts. Patient reports that he was just released from the [facility] health [facility]. States that he was feeling suicidal. To Help deal with these thoughts he tried to do meth and that made his suicidal thoughts worse. He states that he was going to jump in front of traffic.Patient has no other complaints at this time including shortness of breath, chest pain, abdominal pain, nausea or vomiting, headache, or visual changes. - Related Data Home Medications Medication Instructions Recorded Confirmed Atorvastatin [Lipitor] 40 mg PO DAILY 10/01/20 12/19/20 Diclofenac Sodium [Voltaren] 75 mg PO AC-BID 10/01/20 12/19/20 Losartan [Cozaar] 50 mg PO DAILY 10/01/20 12/19/20 Metoprolol Succinate (ER) [Toprol 50 mg PO DAILY 10/01/20 12/19/20 XL] Pantoprazole Sodium [Protonix] 40 mg PO AC-BRKFST 10/01/20 12/19/20 Tamsulosin HCl [Flomax] 0.4 mg PO DAILY 10/01/20 12/19/20 valACYclovir HCL [Valtrex] 1,000 mg PO DAILY 10/01/20 12/19/20 Previous Rx's Medication Instructions Recorded HYDROcodone/APAP 5-325MG [[place] 1 each PO Q6HR PRN #3 tab 12/23/20 5-325] Ibuprofen [Motrin] 600 mg PO TID PRN 14 Days tab 12/23/20 Nicotine 21Mg/24Hr Patch [Habitrol] 1 patch TRANSDERM DAILY patch 12/23/20 QUEtiapine [SEROquel] 200 mg PO HS 30 Days tab 12/23/20 Sulfamethox-Tmp 800-160Mg [Bactrim 1 each PO Q12HR #20 tab 12/23/20 Ds] Allergies Allergy/AdvReac Type Severity Reaction Status Date / Time No Known Allergies Allergy Verified 12/23/20 22:45 Review of Systems ROS Statement: Those systems with pertinent positive or pertinent negative responses have been documented in the HPI. ROS Other: All systems not noted in ROS Statement are negative. Past Medical History Past Medical History: Hypertension, Prostate Disorder Additional Past Medical History / Comment(s): colon polyps History of Any Multi-Drug Resistant Organisms: None Reported Past Surgical History: Orthopedic Surgery Additional Past Surgical History / Comment(s): rt shoulder Past Anesthesia/Blood Transfusion Reactions: No Reported Reaction Past Psychological History: Anxiety, Bipolar, Depression Smoking Status: Current every day smoker Past Alcohol Use History: Rare Past Drug Use History: Methamphetamine General Exam Limitations: no limitations General appearance: alert, in no apparent distress Head exam: Present: atraumatic, normocephalic, normal inspection Eye exam: Present: normal appearance ENT exam: Present: normal exam, mucous membranes moist Neck exam: Present: normal inspection, full ROM. Absent: tenderness Respiratory exam: Present: normal lung sounds bilaterally. Absent: respiratory distress, wheezes Cardiovascular Exam: Present: regular rate, normal rhythm, normal heart sounds Neurological exam: Present: alert, oriented X3 Psychiatric exam: Present: agitated, anxious Course Vital Signs 12/23/20 12/23/20 22:45 23:27 Temperature 98.9 F 98.2 F Pulse Rate 122 H 104 H Respiratory 16 18 Rate Blood Pressure 152/107 133/95 O2 Sat by Pulse 95 96 Oximetry Medical Decision Making - Medical Decision Making 50-year-old male presents for suicidal thoughts. Patient apparently left AMA today from the psychiatric [facility], did meth, and then came back requesting to be readmitted to the psychiatric floor. Patient was seen by EPS, psychiatry is recommending discharge home, feels patient is malingering. It patient does have an appointment in 9 hours for community mental health and has been given resource numbers for shelters. - Lab Data Lab Results 12/23/20 Range/Units 23:11 Urine Opiates Screen Detected H (NotDetected) Ur Oxycodone Screen Not Detected (NotDetected) Urine Methadone Screen Not Detected (NotDetected) Ur Propoxyphene Screen Not Detected (NotDetected) Ur Barbiturates Screen Not Detected (NotDetected) U Tricyclic Antidepress Not Detected (NotDetected) Ur Phencyclidine Scrn Not Detected (NotDetected) Ur Amphetamines Screen Detected H (NotDetected) U Methamphetamines Scrn Detected H (NotDetected) U Benzodiazepines Scrn Detected H (NotDetected) Urine Cocaine Screen Detected H (NotDetected) U Marijuana (THC) Screen Not Detected (NotDetected) Disposition Clinical Impression: Situational depression Disposition: HOME SELF-CARE Condition: Good Instructions (If sedation given, give patient instructions): Depression (ED) Additional Instructions: Please follow-up with your doctor in one to 2 days. Return to the emergency room for any worsening symptoms. Is patient prescribed a controlled substance at d/c from ED?: No Referrals: Jolly Molina MD [Primary Care Provider] - 1-2 days Time of Disposition: 00:32
[2020-12-23 23:28] VITALS: RESP 18
[2020-12-23 23:52] LABS: Amphetamine Screen,Urine Detected (NotDetected); Barbiturate Screen,Urine Not Detected (NotDetected); Benzodiazepines Screen,Urine Detected (NotDetected); Cocaine Screen,Urine Detected (NotDetected); Methadone Screen, Urine Not Detected (NotDetected); Opiate Screen,Urine Detected (NotDetected); Oxycodone Screen, Urine Not Detected (NotDetected); Phencyclidine Screen,Urine Not Detected (NotDetected); Tricyclic Antidepressant,Urine Not Detected (NotDetected); Urn Cannabinoid Scrn Not Detected (NotDetected)
[2020-12-24 01:03] VITALS: BP 135/98; PULSE 105; TEMP 98
== END 2020-12-24 01:18 | disposition home or self-care (01) ==
LOC: EC 22:43
DX: F43.21 Adjustment disorder with depressed mood (principal); I10 Essential (primary) hypertension; F41.9 Anxiety disorder, unspecified; F31.9 Bipolar disorder, unspecified; F17.200 Nicotine dependence, unspecified, uncomplicated
CPT/HCPCS: 80306; 82075; 99285

== ENCOUNTER → 2021-09-05 | Outpatient (CLI) | payer OTHER ==
[2021-09-05 18:33] LABS: Basophils # (A) 0.05 X 10*3/uL (0.00-0.10); Basophils % (A) 0.7 %; Eosinophils # (A) 0.19 X 10*3/uL (0.04-0.35); Eosinophils % (A) 2.8 %; HCT 45.9 % (39.6-50.0); HGB 15.5 g/dL (13.0-17.0); Immature Grans, Automated 0.3 %; Lymphocytes # (A) 2.08 X 10*3/uL (0.90-5.00); Lymphocytes % (A) 30.5 %; MCH 31.1 pg (27.0-32.0); MCHC 33.8 g/dL (32.0-37.0); MCV 92.2 fL (80.0-97.0); Mean Platelet Volume 11.5 fL (9.5-12.2); Monocytes # (A) 0.48 X 10*3/uL (0.20-1.00); NRBC Per 100 WBC 0 /100 WBCS (0.0-0.0); Neutrophils # (A) 3.99 X 10*3/uL (1.80-7.70); Neutrophils % (A) 58.7 %; Platelet Count 149 X 10*3/uL (140-440); RBC 4.98 X 10*6/uL (4.40-5.60); RDW 13.2 % (11.5-14.5); WBC 6.81 X 10*3/uL (4.50-10.00)
[2021-09-05 20:05] LABS: African American GFR (CKD) 112.7 (60.0-200.0); Albumin 4.5 g/dL (3.8-4.9); Albumin/Globulin Ratio 1.57 (1.60-3.17); Anion Gap 11.1 mmol/L (10.00-18.00); BUN/Creat Ratio 14.43 Ratio (12.00-20.00); Blood Urea Nitrogen 13.2 mg/dL (9.0-27.0); Calcium 9.5 mg/dL (8.7-10.3); Carbon Dioxide 25.6 mmol/L (20.0-27.5); Globulin 2.9 g/dL (1.6-3.3); Non-African American GFR(CKD) 97.3 (60.0-200.0); Potassium 4.2 mmol/L (3.5-5.5); Total Bilirubin 0.5 mg/dL (0.30-1.20); Total Protein 7.4 g/dL (6.2-8.2)
== END | disposition home or self-care (01) ==
LOC: LABWHC1 11:18
PROVIDERS: ATTEND Nurse Practitioner Family
DX: B18.2 Chronic viral hepatitis C (principal)
CPT/HCPCS: 36415; 80053; 85025; 87522

== ENCOUNTER → 2021-09-12 | Outpatient (CLI) | payer OTHER ==
[2021-09-12 22:17] LABS: Hepatitis B Core IgM Nonreactive (Nonreactive); Hepatitis B Surface Antigen Nonreactive (Nonreactive)
== END | disposition home or self-care (01) ==
LOC: LABWHC1 10:48
PROVIDERS: ATTEND Nurse Practitioner Family
DX: B18.2 Chronic viral hepatitis C (principal)
CPT/HCPCS: 36415; 82105; 86704; 86705; 87340

== ENCOUNTER 2021-12-15 03:05 | Observation (INO) | payer OTHER ==
[2021-12-15 03:14] VITALS: BP 176/99; PULSE 110; RESP 20; TEMP 99
[2021-12-15] MEDS ORDERED: LORazepam 1 MG TAB PO STA ×2 (03:31→07:57)
--- NOTE | 2021-12-15 03:32 | ED ---
Psych HPI <Cheryl Pierre Earnest - Last Filed: 12/17/21 22:28> - General Source: patient, RN notes reviewed, old records reviewed Mode of arrival: ambulatory Limitations: no limitations - History of Present Illness MD Complaint: suicidal ideation, feels depressed -: unknown Associated Psychiatric Symptoms: depression, suicidal ideation, racing thoughts History of same: Yes Quality: constant Improves With: none Context: not taking psychiatric medications, significant life stressor Treatments Prior to Arrival: placed on mental health hold If Self Harm: admits thoughts of self harm, has plan <Socrates Villalobos - Last Filed: 12/22/21 02:47> - General Chief Complaint: Psychiatric Symptoms Stated Complaint: mental health - History of Present Illness Initial Comments: This is a 51-year-old male DF for evaluation. Patient is rambling here in the emergency room. Patient feels like he wants to kill himself by driving himself. Denies drugs or alcohol tonight (Socrates Villalobos) - Related Data Home Medications Medication Instructions Recorded Confirmed Pantoprazole Sodium [Protonix] 40 mg PO AC-BRKFST 10/01/20 12/18/21 Tamsulosin HCl [Flomax] 0.4 mg PO DAILY 10/01/20 12/18/21 Gabapentin [Neurontin] 300 mg PO BID 12/15/21 12/18/21 Losartan Potassium 100 mg PO DAILY 12/15/21 12/18/21 Magnesium Oxide [Mag-Ox] 400 mg PO DAILY 12/15/21 12/18/21 Metoprolol Succinate [Toprol XL] 100 mg PO DAILY 12/15/21 12/18/21 Venlafaxine HCl ER [Effexor XR] 37.5 mg PO DAILY 12/15/21 12/18/21 predniSONE [Deltasone] See Taper PO DIRECTED 12/15/21 12/18/21 valACYclovir HCL [Valtrex] 500 mg PO DAILY 12/15/21 12/18/21 Previous Rx's Medication Instructions Recorded QUEtiapine [SEROquel] 200 mg PO HS 30 Days tab 12/23/20 Nicotine 14Mg/24Hr Patch [Habitrol] 1 patch TRANSDERM DAILY patch 12/17/21 OLANZapine [ZyPREXA] 5 mg PO BID PRN #60 tablet 12/17/21 Ascorbic Acid [Vitamin C] 500 mg PO BID tab 12/19/21 Cholecalciferol [Vitamin D3 (25 50 mcg PO DAILY tab 12/19/21 Mcg = 1000 Iu)] Zinc Sulfate [Orazinc] 220 mg PO DAILY cap 12/19/21 Allergies Allergy/AdvReac Type Severity Reaction Status Date / Time No Known Allergies Allergy Verified 12/18/21 06:26 Review of Systems ROS Other: All systems not noted in ROS Statement are negative. <Cheryl Pierre - Last Filed: 12/17/21 22:28> ROS Other: All systems not noted in ROS Statement are negative. <Socrates Villalobos - Last Filed: 12/22/21 02:47> ROS Statement: Those systems with pertinent positive or pertinent negative responses have been documented in the HPI. Past Medical History Past Medical History: Hypertension, Prostate Disorder Additional Past Medical History / Comment(s): colon polyps History of Any Multi-Drug Resistant Organisms: None Reported Past Surgical History: Orthopedic Surgery Additional Past Surgical History / Comment(s): rt shoulder Past Anesthesia/Blood Transfusion Reactions: No Reported Reaction Past Psychological History: Anxiety, Bipolar, Depression Smoking Status: Current every day smoker Past Alcohol Use History: Rare Past Drug Use History: Methamphetamine <Socrates Villalobos - Last Filed: 12/22/21 02:47> General Exam General appearance: alert, in no apparent distress, anxious, in distress Head exam: Present: atraumatic, normocephalic, normal inspection Eye exam: Present: normal appearance, PERRL, EOMI. Absent: scleral icterus, conjunctival injection, periorbital swelling ENT exam: Present: normal exam, mucous membranes moist Neck exam: Present: normal inspection. Absent: tenderness, meningismus, lymphadenopathy Respiratory exam: Present: normal lung sounds bilaterally. Absent: respiratory distress, wheezes, rales, rhonchi, stridor Cardiovascular Exam: Present: regular rate, normal rhythm, normal heart sounds. Absent: systolic murmur, diastolic murmur, rubs, gallop, clicks GI/Abdominal exam: Present: soft, normal bowel sounds. Absent: distended, tenderness, guarding, rebound, rigid Extremities exam: Present: normal inspection, full ROM, normal capillary refill. Absent: tenderness, pedal edema, joint swelling, calf tenderness Back exam: Present: normal inspection Neurological exam: Present: alert, oriented X3, CN II-XII intact Psychiatric exam: Present: normal affect, normal mood Skin exam: Present: warm, dry, intact, normal color. Absent: rash <Socrates Villalobos - Last Filed: 12/22/21 02:47> Course <Socrates Villalobos - Last Filed: 12/22/21 02:47> Vital Signs 12/15/21 03:10 Temperature 99 F Pulse Rate 110 H Respiratory 20 Rate Blood Pressure 176/99 O2 Sat by Pulse 97 Oximetry - Reevaluation(s) Reevaluation #1: 12/15/21 06:21 medical record is reveiwed (Socrates Villalobos) Reevaluation #2: 12/15/21 06:22 medically clear for psychiatric evaluation (Socrates Villalobos) Medical Decision Making <Cheryl Pierre - Last Filed: 12/17/21 22:28> - Medical Decision Making I took over care of this patient at 7 AM. He was evaluated by EPS and does need admission for mental health evaluation. They did obtain the records from an urgent care where the patient tested positive for Covid on the . Because of this the patient cannot be evaluated on 3 W. Patient will be admitted to a medical floor and psych will be consulted. I spoke with Dr. Severino about this plan and he did agree to admit the patient (Cheryl Pierre) - Lab Data Lab Results 12/15/21 Range/Units 03:21 Urine Opiates Screen Not Detected (NotDetected) Ur Oxycodone Screen Not Detected (NotDetected) Urine Methadone Screen Not Detected (NotDetected) Ur Propoxyphene Screen Not Detected (NotDetected) Ur Barbiturates Screen Not Detected (NotDetected) U Tricyclic Antidepress Detected H (NotDetected) Ur Phencyclidine Scrn Not Detected (NotDetected) Ur Amphetamines Screen Detected H (NotDetected) U Methamphetamines Scrn Detected H (NotDetected) U Benzodiazepines Scrn Not Detected (NotDetected) Urine Cocaine Screen Not Detected (NotDetected) U Marijuana (THC) Screen Not Detected (NotDetected) Disposition Is patient prescribed a controlled substance at d/c from ED?: No Time of Disposition: 09:38 Decision to Admit Reason: Admit from EC Decision Date: 12/15/21 Decision Time: :38 <Cheryl Pierre - Last Filed: 12/17/21 22:28> <Socrates Villalobos - Last Filed: 12/22/21 02:47> Clinical Impression: Depression, Suicidal ideation, COVID Disposition: ADMITTED IP TO THIS HOSP Condition: Stable
[2021-12-15] MEDS ORDERED: ACETAMINOPHEN TAB 325 MG TAB PO STA (03:39)
[2021-12-15 04:06] LABS: Amphetamine Screen,Urine Detected (NotDetected); Barbiturate Screen,Urine Not Detected (NotDetected); Benzodiazepines Screen,Urine Not Detected (NotDetected); Cocaine Screen,Urine Not Detected (NotDetected); Methadone Screen, Urine Not Detected (NotDetected); Opiate Screen,Urine Not Detected (NotDetected); Oxycodone Screen, Urine Not Detected (NotDetected); Phencyclidine Screen,Urine Not Detected (NotDetected); Tricyclic Antidepressant,Urine Detected (NotDetected); Urn Cannabinoid Scrn Not Detected (NotDetected)
[2021-12-15] MEDS ORDERED: diphenhydrAMINE 50 MG CAP PO STA (07:57)
[2021-12-15] MEDS ORDERED: NALOXONE 0.4 MG/ML 1 ML VIAL IV PRN (09:38)
[2021-12-15] MEDS ORDERED: IBUPROFEN 400 MG TAB PO PRN (09:38)
[2021-12-15] MEDS ORDERED: ACETAMINOPHEN TAB 325 MG TAB PO PRN (09:38)
[2021-12-15] MEDS ORDERED: LOSARTAN 50 MG TAB PO SCH (12:30)
[2021-12-15] MEDS ORDERED: VENLAFAXINE HCL ER 37.5 MG CAP PO SCH (12:45)
[2021-12-15] MEDS ORDERED: GABAPENTIN 300 MG CAP PO SCH (13:00)
[2021-12-15] MEDS ORDERED: QUEtiapine 100 MG TAB PO STA (14:30)
--- NOTE | 2021-12-15 14:44 | P.CN ---
Psychiatric Consult - . 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 Patient apparently was endorsing depression and suicidal thoughts. Patient's UDS was positive for TCAs, amphetamines, methamphetamine. The patient was supposed to be medically cleared however tested positive covid and remained in the ER. Patient was seen today and agreeable to speak with machine sign writer. Patient is directable in conversation. He states that his roommate called the [employer] on him because he was "being paranoid". He states that he believed that someone was in the yard and was going to enter the house and he "freaked out". He states that he was feeling depressed and paranoid at home for past couple of months. He states that that roommate called the [employer] on him as he "wanted me to get better". He states that he has been taking his Seroquel and Effexor which has been helping him. He states that he was not impair sleep and fair appetite. At this time he states that his mood is "fine" and denying any depression. He is also denying any paranoia at this time. The machine sign writer asked patient about his urine drug screen which is positive for methamphetamine however patient adamantly denied taking it. He states that "I was taking cold medicine and that probably was positive for it. Patient states that he wants to go home and he is refusing rehab at this time. Minimizing his drug use and was focused on obtaining Ativan. Patient denies any suicidal or homicidal ideations intent or plan. At this time patient denies any auditory or visual hallucinations. Patient denies any flight of ideas racing thoughts and increased in goal directed behavior. Patient st ates that he does smoke cigarettes daily. He claims that he is denying any drug use. PAST PSYCHIATRIC HISTORY: Patient states that he has a history of bipolar disorder. Patient was last admitted to the mental health unit in December 2020. Patient is currently on Seroquel 20 mg daily at bedtime and also Effexor. These medications are prescribed by his PCP and he does not have any psychiatric out patient follow-up. He states that he has been hospitalized several times in the past. Patient denies any psychiatric outpatient follow-up. Patient denies any history of suicide attempts in the past. PMH: Hypertension and prostate disorder ALLERGIES: as per EMR CHEMICAL DEPENDENCY HISTORY: as per HPI FAMILY PSYCHIATRIC/SUBSTANCE USE HISTORY: Claims that his mother has bipolar disorder SOCIAL HISTORY: Patient was born and raised in [facility]. He states that he completed his GED after dropping out of school. He claims that he has had several legal problems in the past and has been to [facility] including for larceny, robbery and assault. 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 MENTAL STATUS EXAM: General Appearance: Patient appears to be tall, well-built, stated age is alert, directable, not irritable.. Patient appears to have fair hygiene and grooming. Behavior: Patient is seated without any agitated behavior. Manipulative and drug-seeking. Speech: Patient's speech is fluent and nonpressured. Mood/Affect: Patient reports their mood is "fine now", affect is congruent Suicidality/Homicidality: Patient denies having any homicidal ideation intent or plan. Denies any suicidal ideations intent or plan Perceptions: Patient denies any visual hallucinations and denies any auditory hallucinations Though content/process: There is no evidence of any delusional thought content and thought process is linear and goal-directed. Seeking benzodiazepines Memory and concentration: AOX3, grossly intact for the purposes of this session. Can spell "WORLD" backwards Judgment and insight: Chronically poor and manipulative IMPRESSIONS: Bipolar disorder methamphetamine use disorder nicotine dependence antisocial personality disorder PLAN: -At this time patient DOES NOT meet criteria for inpatient psychiatric admission. -Would recommend the following medication changes/additions: We'll give 100 mg of Seroquel at this time and can continue his home dose of Seroquel 200 mg daily at bedtime for mood stabilization/psychosis/insomnia. Continue Effexor as prescribed. Spoke with patient about benzodiazepines and other controlled medications, patient is manipulative and drug-seeking at this time and should not be given any more benzodiazepines. -social worker to provide patient with outpatient mental health/psychiatry resources for appropriate follow up upon discharge -Instrumentation Technician spoke with patient about substance abuse and the harmful effects on medical and mental health, patient verbally understood and agreed. -social worker to provide patient substance use treatment resources including AA/NA meetings in the community. -social worker to provide patient with access line number to call for inpatient substance rehab -Communicated plan to patient's nurse -Psychiatry will sign off at this time -Please contact with any questions. 12/15/21 14:35
[2021-12-15] MEDS ORDERED: QUEtiapine 200 MG TAB PO SCH (21:00)
[2021-12-16] MEDS ORDERED: PANTOPRAZOLE 40 MG TABLET PO SCH (07:30)
[2021-12-16] MEDS ORDERED: METOPROLOL SUCCINATE (ER) 100 MG TAB.ER.24H PO SCH (09:00)
== END 2021-12-15 16:11 | disposition home or self-care (01) ==
LOC: EC 03:05 → 4SSUR 09:41
PROVIDERS: ADMIT Family Medicine; ATTEND Family Medicine
DX: R45.851 Suicidal ideations (principal); I10 Essential (primary) hypertension; N42.9 Disorder of prostate, unspecified; F17.200 Nicotine dependence, unspecified, uncomplicated; U07.1 COVID-19; F31.9 Bipolar disorder, unspecified; F41.9 Anxiety disorder, unspecified; F32.A Depression, unspecified; Z98.890 Other specified postprocedural states; Z86.010 Personal history of colon polyps; Z79.52 Long term (current) use of systemic steroids; Z79.899 Other long term (current) drug therapy
CPT/HCPCS: 82075; 99285; 80306; G0378

== ENCOUNTER 2021-12-16 01:51 | Inpatient (IN) | payer OTHER ==
--- NOTE | 2021-12-16 02:01 | ED ---
Psych HPI - General Source: patient, police, RN notes reviewed, old records reviewed Mode of arrival: ambulatory Limitations: altered mental status - History of Present Illness MD Complaint: altered mental status -: unknown Associated Psychiatric Symptoms: racing thoughts, auditory hallucinations, visual hallucinations, delusions History of same: Yes Quality: constant, getting worse Improves With: none Worsens With: none Context: not taking psychiatric medications, significant life stressor Associated Symptoms: denies other symptoms Treatments Prior to Arrival: placed on mental health hold If Self Harm: admits thoughts of self harm <Socrates Villalobos - Last Filed: 12/16/21 03:08> <Jeremy Magallanes - Last Filed: 12/16/21 14:39> - General Chief Complaint: Psychiatric Symptoms Stated Complaint: Mental health Time Seen by Provider: 12/16/21 01:59 - Related Data Home Medications Medication Instructions Recorded Confirmed Pantoprazole Sodium [Protonix] 40 mg PO AC-BRKFST 10/01/20 12/16/21 Tamsulosin HCl [Flomax] 0.4 mg PO DAILY 10/01/20 12/16/21 Gabapentin [Neurontin] 300 mg PO BID 12/15/21 12/16/21 Losartan Potassium 100 mg PO DAILY 12/15/21 12/16/21 Magnesium Oxide [Mag-Ox] 400 mg PO DAILY 12/15/21 12/16/21 Metoprolol Succinate [Toprol XL] 100 mg PO DAILY 12/15/21 12/16/21 Venlafaxine HCl ER [Effexor XR] 37.5 mg PO DAILY 12/15/21 12/16/21 predniSONE [Deltasone] See Taper PO DIRECTED 12/15/21 12/16/21 valACYclovir HCL [Valtrex] 500 mg PO DAILY 12/15/21 12/16/21 Previous Rx's Medication Instructions Recorded Ibuprofen [Motrin] 600 mg PO TID PRN 14 Days tab 12/23/20 QUEtiapine [SEROquel] 200 mg PO HS 30 Days tab 12/23/20 Allergies Allergy/AdvReac Type Severity Reaction Status Date / Time No Known Allergies Allergy Verified 12/16/21 08:55 Review of Systems ROS Other: All systems not noted in ROS Statement are negative. <Socrates Villalobos - Last Filed: 12/16/21 03:08> ROS Other: All systems not noted in ROS Statement are negative. <Jeremy Magallanes - Last Filed: 12/16/21 14:39> ROS Statement: Those systems with pertinent positive or pertinent negative responses have been documented in the HPI. Past Medical History Past Medical History: Hypertension, Prostate Disorder Additional Past Medical History / Comment(s): colon polyps History of Any Multi-Drug Resistant Organisms: None Reported Past Surgical History: Orthopedic Surgery Additional Past Surgical History / Comment(s): rt shoulder Past Anesthesia/Blood Transfusion Reactions: No Reported Reaction Past Psychological History: Anxiety, Bipolar, Depression Smoking Status: Current every day smoker Past Alcohol Use History: Rare Past Drug Use History: Methamphetamine <Socrates Villalobos - Last Filed: 12/16/21 03:08> General Exam Limitations: altered mental status General appearance: alert, in no apparent distress, anxious, in distress Head exam: Present: atraumatic, normocephalic, normal inspection Eye exam: Present: normal appearance, PERRL, EOMI. Absent: scleral icterus, conjunctival injection, periorbital swelling ENT exam: Present: normal exam, mucous membranes moist Neck exam: Present: normal inspection. Absent: tenderness, meningismus, lymphadenopathy Respiratory exam: Present: normal lung sounds bilaterally. Absent: respiratory distress, wheezes, rales, rhonchi, stridor Cardiovascular Exam: Present: regular rate, normal rhythm, normal heart sounds. Absent: systolic murmur, diastolic murmur, rubs, gallop, clicks GI/Abdominal exam: Present: soft, normal bowel sounds. Absent: distended, tenderness, guarding, rebound, rigid Extremities exam: Present: normal inspection, full ROM, normal capillary refill. Absent: tenderness, pedal edema, joint swelling, calf tenderness Back exam: Present: normal inspection Neurological exam: Present: alert, oriented X3, CN II-XII intact Psychiatric exam: Present: normal affect, normal mood Skin exam: Present: warm, dry, intact, normal color. Absent: rash <Socrates Villalobos - Last Filed: 12/16/21 03:08> Course <Socrates Villalobos - Last Filed: 12/16/21 03:08> Vital Signs 12/16/21 12/16/21 01:56 10:26 Temperature 99.1 F Pulse Rate 119 H 109 H Respiratory 20 16 Rate Blood Pressure 205/120 151/121 O2 Sat by Pulse 98 98 Oximetry - Reevaluation(s) Reevaluation #1: 12/16/21 03:09 medical is reviewed (Socrates Villalobos) Medical Decision Making <Jeremy Magallanes - Last Filed: 12/16/21 14:39> - Medical Decision Making The patient was endorsed me at shift change by Dr. Villalobos any EPS evaluation. Patient does require EPS evaluation however he is coated positive. He did present with complaints of flight of ideas thoughts of going himself and paranoid delusional thoughts. He will be admitted to the hospital under Dr. White's with EPS evaluation and consultation (Jeremy Magallanes) Disposition <Socrates Villalobos - Last Filed: 12/16/21 03:08> Decision Date: 12/16/21 Decision Time: 14:00 <Jeremy Magallanes - Last Filed: 12/16/21 14:39> Clinical Impression: Depression, Suicidal ideation, Psychosis, COVID-19 Disposition: ADMITTED IP TO THIS HOSP Condition: Fair Referrals: Jolly Molina MD [Primary Care Provider] - 1-2 days
[2021-12-16] MEDS ORDERED: HALOPERIDOL LACTATE 5 MG/ML 1 ML VIAL IM STA (02:29)
[2021-12-16] MEDS ORDERED: ZIPRASIDONE 20 MG VIAL IM STA (02:46)
[2021-12-16] MEDS ORDERED: LORazepam 1 MG TAB PO STA (11:50)
[2021-12-16] MEDS ORDERED: ACETAMINOPHEN TAB 325 MG TAB PO PRN (14:40)
[2021-12-16] MEDS ORDERED: NALOXONE 0.4 MG/ML 1 ML VIAL IV PRN (14:40)
[2021-12-16] MEDS ORDERED: IBUPROFEN 600 MG TAB PO PRN (14:43)
[2021-12-16] MEDS: predniSONE 10 MG TAB PO SCH (16:05)
[2021-12-16] MEDS: LORazepam 0.5 MG TAB PO PRN ×2 (16:55→21:23)
[2021-12-16 19:47] LABS: Urine Alcohol Negative (Negative); Urine Barbiturate Negative (Negative); Urine Cocaine Negative (Negative); Urine Methadone Negative (Negative); Urine Opiates Negative (Negative); Urine Phencyclidine Negative (Negative)
[2021-12-16] MEDS: GABAPENTIN 300 MG CAP PO SCH (20:32)
[2021-12-16] MEDS ORDERED: QUEtiapine 200 MG TAB PO SCH (21:00)
[2021-12-17] MEDS ORDERED: PANTOPRAZOLE 40 MG TABLET PO SCH (07:30)
[2021-12-17] MEDS: predniSONE 10 MG TAB PO SCH (07:37)
[2021-12-17] MEDS: LORazepam 0.5 MG TAB PO PRN (07:37)
[2021-12-17] MEDS: GABAPENTIN 300 MG CAP PO SCH (07:38)
[2021-12-17] MEDS ORDERED: VENLAFAXINE HCL ER 37.5 MG CAP PO SCH (09:00)
[2021-12-17] MEDS ORDERED: LOSARTAN 50 MG TAB PO SCH (09:00)
[2021-12-17] MEDS ORDERED: NICOTINE 14MG/24HR PATCH TRANSDERM SCH (09:00)
[2021-12-17] MEDS ORDERED: MAGNESIUM OXIDE 400 MG TAB PO SCH (09:00)
[2021-12-17] MEDS ORDERED: valACYclovir HCL 500 MG TAB PO SCH (09:00)
[2021-12-17] MEDS ORDERED: METOPROLOL SUCCINATE (ER) 100 MG TAB.ER.24H PO SCH (09:00)
[2021-12-17] MEDS ORDERED: TAMSULOSIN 0.4 MG CAP.ER.24H PO SCH (09:00)
[2021-12-17 10:23] VITALS: TEMP 98.4
[2021-12-17] MEDS ORDERED: OLANZapine 7.5 MG TAB PO PRN (13:13)
[2021-12-17] MEDS ORDERED: OLANZapine 10 MG VIAL IM PRN (13:13)
[2021-12-17 13:43] VITALS: BP 143/91; PULSE 96; RESP 19
--- NOTE | 2021-12-17 14:30 | P.CN ---
Psychiatric Consult - . 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 Patient was just seen by automotive service writer for psychiatric evaluation 2 days ago. Patient came in with similar complaints at that time with depression hallucinations and suicidal thoughts. Patient continues to be positive for methamphetamine and amphetamines in his urine. Patient was admitted to the medical floors due to having covid. Patient has a history of antisocial personality disorder and polysubstance abuse and also history of malingering and drug-seeking. He was seen today at the bedside and was sleeping and agreeable to speak to automotive service writer. He states that he was in "doing well" before coming into the hospital however was fairly vague. He mentioned getting into a fight with his girlfriend and states that "she stressing me out". He states that he was also having anxiety at home. He continues to be superficial and guarded about his drug use. At first he denied using methamphetamine however afterwards admitted to it. He continues to be fairly superficial and disinterested in getting treatment or going to rehab. He continues to minimize his need for quitting substances and continues to seek and ask for benzodiazepines and other controlled drugs. She was focused on getting more care in the hospital for very vague symptoms. He is denying any depression at this time. Continues to endorse anxiety. Patient denies any suicidal or homicidal ideations intent or plan. At this time patient denies any auditory or visual hallucinations. Patient denies any flight of ideas racing thoughts and increased in goal directed behavior. Patient states that he does smoke cigarettes daily, he uses methamphetamine regularly. PAST PSYCHIATRIC HISTORY: Patient states that he has a history of bipolar disorder. Patient was last admitted to the mental health unit in December 2020. Patient is currently on Seroquel 20 mg daily at bedtime and also Effexor. These medications are prescribed by his PCP and he does not have any psychiatric outpatient follow-up. He states that he has been hospitalized several times in the past. Patient denies any psychiatric outpatient follow-up. Patient denies any history of suicide attempts in the past. PMH: Hypertension and prostate disorder ALLERGIES: as per EMR CHEMICAL DEPENDENCY HISTORY: as per HPI FAMILY PSYCHIATRIC/SUBSTANCE USE HISTORY: Claims that his mother has bipolar disorder SOCIAL HISTORY: Patient was born and raised in [facility]. He states that he completed his GED after dropping out of school. He claims that he has had several legal problems in the past and has been to [facility] and group home including for larceny, robbery and assault. 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 MENTAL STATUS EXAM: General Appearance: Patient appears to be tall, well-built, stated age is alert, directable, not irritable. Patient appears to have fair hygiene and grooming. Behavior: Patient is seated without any agitated behavior. Manipulative and drug-seeking. Speech: Patient's speech is fluent and nonpressured. Mood/Affect: Patient reports their mood is "anxious", affect is congruent Suicidality/Homicidality: Patient denies having any homicidal ideation intent or plan. Denies any suicidal ideations intent or plan Perceptions: Patient denies any visual hallucinations and denies any auditory hallucinations Though content/process: There is no evidence of any delusional thought content and thought process is linear and goal-directed. Seeking benzodiazepines and other controlled medications. Vague and guarded. Memory and concentration: AOX3, grossly intact for the purposes of this session. Can spell "WORLD" backwards Judgment and insight: Chronically poor and manipulative IMPRESSIONS: Bipolar disorder methamphetamine use disorder nicotine dependence antisocial personality disorder PLAN: -At this time patient DOES NOT meet criteria for inpatient psychiatric admission. -Would recommend the following medication changes/additions: Continue with Seroquel 200 mg daily at bedtime for mood stabilization/psychosis/insomnia. Continue Effexor as prescribed. Spoke with patient about benzodiazepines and other controlled medications, patient is manipulative and drug-seeking at this time and He should not be given any more benzodiazepines as this will lead to diversion and abuse. can give zyprexa po 5 mg bid prn for anxiety/agitation upon discharge. -reclamation worker to provide patient with outpatient mental health/psychiatry resources for appropriate follow up upon discharge -Mill Crane Operator spoke with patient about substance abuse and the harmful effects on medical and mental health, patient verbally understood and agreed. -reclamation worker to provide patient substance use treatment resources including AA/NA meetings in the community. -reclamation worker to provide patient with access line number to call for inpatient substance rehab however patient seems disinterested -Communicated plan to patient's nurse -Psychiatry will sign off at this time -Please contact with any questions. 12/17/21 14:24
--- NOTE | 2021-12-17 18:45 | P.HPIM ---
History of Present Illness H&P Date: 12/17/21 History and Physical and Discharge Summary: This is a 51-year-old gentleman, lives in a three quarter house, with past medical history of bipolar disorder, polysubstance abuse, hypertension and multiple other medical issues returned to the ER with complaints of depression, paranoia, PTSD, hallucinations- seeing shadows, reports struggling with his mental health and therefore expressed suicidal thoughts to facilitate admission. Patient was evaluated by a psychiatry on 12/15/2021 in the ER, with similar presentation, medication adjustments recommended and patient was cleared for discharge home. Toxicology positive for methamphetamines and amphetamines. Eric clark tested positive for COVID 12/13/21 outpatient and therefore admitted to medical floor. Suicide precautions maintained. Denies chest pain, palpitations or shortness of breath. Denies lightheadedness dizziness or focal deficits. Denies nausea vomiting or diarrhea. Denies abdominal pain. Reports occasional cough, none witnessed during exam. Currently anxious, irritated regarding suicide precautions and inability to use phone. RN assisting patient to call into work. Vague historian. Per psychiatry evaluation/documentation, patient has been in retirement/fdc for larceny, robbery and assault. Currently denies suicidal or homicidal ideation. Afebrile, vital signs stable, maintaining O2 sats in the mid 90s on room air. Review of Systems ROS Statement: Those systems with pertinent positive or pertinent negative responses have been documented in the HPI. ROS Other: All systems not noted in ROS Statement are negative. Past Medical History Past Medical History: Hypertension, Prostate Disorder Additional Past Medical History / Comment(s): colon polyps History of Any Multi-Drug Resistant Organisms: None Reported Past Surgical History: Orthopedic Surgery Additional Past Surgical History / Comment(s): rt shoulder Past Anesthesia/Blood Transfusion Reactions: No Reported Reaction Past Psychological History: Anxiety, Bipolar, Depression Smoking Status: Current every day smoker Past Alcohol Use History: None Reported, Rare Additional Past Alcohol Use History / Comment(s): Denies Past Drug Use History: Methamphetamine Additional Drug Use History / Comment(s): Denies but did test positive for amphetamines Medications and Allergies Home Medications Medication Instructions Recorded Confirmed Type Pantoprazole Sodium [Protonix] 40 mg PO AC-BRKFST 10/01/20 12/16/21 History Tamsulosin HCl [Flomax] 0.4 mg PO DAILY 10/01/20 12/16/21 History Ibuprofen [Motrin] 600 mg PO TID PRN 14 Days tab 12/23/20 12/16/21 Rx QUEtiapine [SEROquel] 200 mg PO HS 30 Days tab 12/23/20 12/16/21 Rx Gabapentin [Neurontin] 300 mg PO BID 12/15/21 12/16/21 History Losartan Potassium 100 mg PO DAILY 12/15/21 12/16/21 History Magnesium Oxide [Mag-Ox] 400 mg PO DAILY 12/15/21 12/16/21 History Metoprolol Succinate [Toprol XL] 100 mg PO DAILY 12/15/21 12/16/21 History Venlafaxine HCl ER [Effexor XR] 37.5 mg PO DAILY 12/15/21 12/16/21 History predniSONE [Deltasone] See Taper PO DIRECTED 12/15/21 12/16/21 History valACYclovir HCL [Valtrex] 500 mg PO DAILY 12/15/21 12/16/21 History Nicotine 14Mg/24Hr Patch [Habitrol] 1 patch TRANSDERM DAILY patch 12/17/21 Rx OLANZapine [ZyPREXA] 5 mg PO BID PRN #60 tablet 12/17/21 Rx Allergies Allergy/AdvReac Type Severity Reaction Status Date / Time No Known Allergies Allergy Verified 12/16/21 08:55 Physical Exam Vitals: Vital Signs Temp Pulse Resp BP Pulse Ox 12/17/21 10:00 98.4 F 85 18 138/82 95 12/17/21 06:18 97.7 F 109 H 16 129/63 96 12/17/21 00:54 97.6 F 76 20 105/68 94 L 12/16/21 21:10 98.7 F 122 H 16 128/87 95 Intake and Output 12/16/21 12/17/21 12/17/21 22:59 06:59 14:59 Other: Voiding Method Toilet # Voids 2 Weight 113.398 kg PHYSICAL EXAM: VITAL SIGNS: [As above] GENERAL: Alert and oriented 3, standing up at bedside, anxious, irritated, manipulative, no acute distress HEENT: Atraumatic,Conjunctivae normal. eyes normal. MMM. NECK: Supple, No JVD. No thyroid enlargement. No LNs. CARDIOVASCULAR: S1, S2 regular.. No murmur RESPIRATION: Breath sounds diminished in the bases. No rhonchi or crackles. No bronchial breathing. ABDOMEN: Soft, nontender . No guarding. no masses palpable. No ascites, No hepatosplenomegaly.Bowel sounds heard. LEGS: No edema. no swelling NERVOUS SYSTEM: Cranial N 2-12 grossly normal. Moves all 4 limbs. No focal deficits. Strength and sensation grossly intact.. Skin: Warm and dry, no rash Results Labs: Abnormal Lab Results - Last 24 Hours (Table) 12/16/21 12/16/21 Range/Units 10:26 15:07 Ur Amphetamine Screen Positive A (Negative) Coronavirus (PCR) Detected A (Not Detectd) Thrombosis Risk Factor Assmnt - Choose All That Apply Any of the Below Risk Factors Present?: Yes Each Factor Represents 1 point: Age 41-60 years Other Risk Factors: No Other congenital or acquired thrombophilia - If yes, enter type in comment: No Thrombosis Risk Factor Assessment Total Risk Factor Score: 1 Thrombosis Risk Factor Assessment Level: Low Risk Assessment and Plan Assessment: Bipolar disorder Polysubstance abuse including Methamphetamine Nicotine dependence Antisocial personality disorder Acute Covid initially tested positive on 12/13 OP. Plan: Continue on current medication regime, monitoring, symptomatic treatment. Maintain suicide precautions including safety and health manager. Patient will be discharged home pending reevaluation, DC recommendations and clearance for discharge per psychiatry. Counseled on substance abuse with drug abuse social worker providing outpatient psychiatry resources/substance abuse rehab. Discharge Medication List Pantoprazole Sodium [Protonix] 40 mg PO AC-BRKFST 10/01/20 [History] Tamsulosin HCl [Flomax] 0.4 mg PO DAILY 10/01/20 [History] Ibuprofen [Motrin] 600 mg PO TID PRN 14 Days tab 12/23/20 [Rx] QUEtiapine [SEROquel] 200 mg PO HS 30 Days tab 12/23/20 [Rx] Gabapentin [Neurontin] 300 mg PO BID 12/15/21 [History] Losartan Potassium 100 mg PO DAILY 12/15/21 [History] Magnesium Oxide [Mag-Ox] 400 mg PO DAILY 12/15/21 [History] Metoprolol Succinate [Toprol XL] 100 mg PO DAILY 12/15/21 [History] Venlafaxine HCl ER [Effexor XR] 37.5 mg PO DAILY 12/15/21 [History] predniSONE [Deltasone] See Taper PO DIRECTED 12/15/21 [History] valACYclovir HCL [Valtrex] 500 mg PO DAILY 12/15/21 [History] Nicotine 14Mg/24Hr Patch [Habitrol] 1 patch TRANSDERM DAILY patch 12/17/21 [Rx] OLANZapine [ZyPREXA] 5 mg PO BID PRN #60 tablet 12/17/21 [Rx] The impression and plan of care has been dictated as directed. : I performed a history and examination of this patient, discussed the same with the dictator. I agree with the dictator's note ,documented as a scribe. Any additional findings or plans will be noted.
== END 2021-12-17 14:02 | disposition home or self-care (01) | DRG 885 ==
LOC: EC 01:51 → 4SSUR 14:40
PROVIDERS: ADMIT Family Medicine; ATTEND Family Medicine
DX: F31.9 Bipolar disorder, unspecified (principal); U07.1 COVID-19; R45.851 Suicidal ideations; F19.10 Other psychoactive substance abuse, uncomplicated; F17.210 Nicotine dependence, cigarettes, uncomplicated; F60.2 Antisocial personality disorder; F41.9 Anxiety disorder, unspecified; F22 Delusional disorders; I10 Essential (primary) hypertension; N42.9 Disorder of prostate, unspecified; F43.10 Post-traumatic stress disorder, unspecified; Z79.899 Other long term (current) drug therapy; Z63.5 Disruption of family by separation and divorce
CPT/HCPCS: 80306; 82075; 87635; 96372; 99285

== ENCOUNTER 2021-12-18 00:54 | Observation (INO) | payer OTHER ==
[2021-12-18] MEDS ORDERED: SODIUM CHLORIDE 0.9% 500 ML 500 ML IV STA (01:04)
--- NOTE | 2021-12-18 01:06 | ED ---
Psych HPI - General Chief Complaint: Psychiatric Symptoms Stated Complaint: Mental Health Time Seen by Provider: 12/18/21 01:04 Source: patient, RN notes reviewed Mode of arrival: ambulatory - History of Present Illness Initial Comments: This is a pleasant 51-year-old male with history of hypertension and prostate disorder. Patient currently test positive for COVID-19 as she states she had a home test. Patient having some suicidal thoughts with no specific plan. Patient requesting to see a mental health nurse. History Suicidal ideation, polysubstance abuse, current COVID-19. No headache, no fever or chills, no changes in vision or hearing, no sore throat or difficulty with speech, no neck pain, no chest pain or shortness of breath, no abdominal pain, no nausea or vomiting, no changes in urination or bowel movements, no numbness or tingling, no extremity pain, no skin rashes or lesions. Past medical, surgical, social, and family history reviewed. - Related Data Home Medications Medication Instructions Recorded Confirmed Pantoprazole Sodium [Protonix] 40 mg PO AC-BRKFST 10/01/20 12/16/21 Tamsulosin HCl [Flomax] 0.4 mg PO DAILY 10/01/20 12/16/21 Gabapentin [Neurontin] 300 mg PO BID 12/15/21 12/16/21 Losartan Potassium 100 mg PO DAILY 12/15/21 12/16/21 Magnesium Oxide [Mag-Ox] 400 mg PO DAILY 12/15/21 12/16/21 Metoprolol Succinate [Toprol XL] 100 mg PO DAILY 12/15/21 12/16/21 Venlafaxine HCl ER [Effexor XR] 37.5 mg PO DAILY 12/15/21 12/16/21 predniSONE [Deltasone] See Taper PO DIRECTED 12/15/21 12/16/21 valACYclovir HCL [Valtrex] 500 mg PO DAILY 12/15/21 12/16/21 Previous Rx's Medication Instructions Recorded Ibuprofen [Motrin] 600 mg PO TID PRN 14 Days tab 12/23/20 QUEtiapine [SEROquel] 200 mg PO HS 30 Days tab 12/23/20 Nicotine 14Mg/24Hr Patch [Habitrol] 1 patch TRANSDERM DAILY patch 12/17/21 OLANZapine [ZyPREXA] 5 mg PO BID PRN #60 tablet 12/17/21 Allergies Allergy/AdvReac Type Severity Reaction Status Date / Time No Known Allergies Allergy Verified 12/18/21 01:02 Review of Systems ROS Statement: Those systems with pertinent positive or pertinent negative responses have been documented in the HPI. ROS Other: All systems not noted in ROS Statement are negative. Past Medical History Past Medical History: Hypertension, Prostate Disorder Additional Past Medical History / Comment(s): colon polyps History of Any Multi-Drug Resistant Organisms: None Reported Past Surgical History: Orthopedic Surgery Additional Past Surgical History / Comment(s): rt shoulder Past Anesthesia/Blood Transfusion Reactions: No Reported Reaction Past Psychological History: Anxiety, Bipolar, Depression Smoking Status: Current every day smoker Past Alcohol Use History: Rare Past Drug Use History: Methamphetamine General Exam - General Exam Comments Initial Comments: Diaphoretic appearing and anxious-appearing 51-year-old male presenting with suicidal thoughts, cranial nerves II through XII are intact. Patient appears to be adequately hydrated. Limitations: no limitations General appearance: alert, anxious Head exam: Present: atraumatic, normocephalic, normal inspection Eye exam: Present: normal appearance, PERRL, EOMI. Absent: scleral icterus, conjunctival injection, periorbital swelling ENT exam: Present: normal exam, mucous membranes moist Neck exam: Present: normal inspection. Absent: tenderness, meningismus, lymphadenopathy Respiratory exam: Present: normal lung sounds bilaterally. Absent: respiratory distress, wheezes, rales, rhonchi, stridor Cardiovascular Exam: Present: regular rate, normal rhythm, normal heart sounds. Absent: systolic murmur, diastolic murmur, rubs, gallop, clicks GI/Abdominal exam: Present: soft, normal bowel sounds. Absent: distended, tenderness, guarding, rebound, rigid Extremities exam: Present: normal inspection, full ROM, normal capillary refill. Absent: tenderness, pedal edema, joint swelling, calf tenderness Back exam: Present: normal inspection Neurological exam: Present: alert, oriented X3, CN II-XII intact Psychiatric exam: Present: normal affect, normal mood Skin exam: Present: warm, dry, intact, normal color. Absent: rash Course Vital Signs 12/18/21 00:55 Temperature 97.6 F Pulse Rate 120 H Respiratory 24 Rate Blood Pressure 95/68 O2 Sat by Pulse 95 Oximetry - Reevaluation(s) Reevaluation #1: 12/18/21 02:29 Medical record is reviewed Symptoms are improved here in the emergency department Patient is informed of results and questions answered Patient in no distress Medical Decision Making - Medical Decision Making Patient be admitted for COVID-19 and acute kidney injury. We will offer monoclonal antibody to the patient. Troponin was negative Patient found to have acute kidney injury, likely secondary to COVID-19. Patient initiated on the COVID-19 pathway with him does of air and dexamethasone. Discussed the case in detail with the patient's primary care physician. Patient was just cleared by psychiatry this morning. We'll hold psychiatric consultation at this time. Patient admitted to the hospital for acute kidney injury. Consultation for nephrology initiated. Patient had no respiratory distress here in the ED. Chest x-ray was clear. Pulse oximetry on room air was normal. Patient started on Lovenox as indicated by the COVID-19 pathway The case was discussed in detail with ED attending physician. Presentation, findings, treatment plan discussed in detail. Supervisor Pumping Dr. Alvarez - Lab Data Result diagrams: 12/18/21 01:29 12/18/21 01:29 Lab Results 12/18/21 12/18/21 12/18/21 Range/Units 01:29 01:29 01:29 WBC 13.3 H (3.8-10.6) k/uL RBC 5.30 (4.30-5.90) m/uL Hgb 17.0 (13.0-17.5) gm/dL Hct 51.1 (39.0-53.0) % MCV 96.3 (80.0-100.0) fL MCH 32.1 (25.0-35.0) pg MCHC 33.3 (31.0-37.0) g/dL RDW 12.7 (11.5-15.5) % Plt Count 186 (150-450) k/uL MPV 8.9 Neutrophils % 80 % Lymphocytes % 15 % Monocytes % 4 % Eosinophils % 1 % Basophils % 0 % Neutrophils # 10.6 H (1.3-7.7) k/uL Lymphocytes # 2.0 (1.0-4.8) k/uL Monocytes # 0.5 (0-1.0) k/uL Eosinophils # 0.1 (0-0.7) k/uL Basophils # 0.1 (0-0.2) k/uL Sodium 141 (137-145) mmol/L Potassium 4.6 (3.5-5.1) mmol/L Chloride 105 (98-107) mmol/L Carbon Dioxide 19 L (22-30) mmol/L Anion Gap 17 mmol/L BUN 20 (9-20) mg/dL Creatinine 2.30 H (0.66-1.25) mg/dL Est GFR (CKD-EPI)AfAm 37 (>60 ml/min/1.73 sqM) Est GFR (CKD-EPI)NonAf 32 (>60 ml/min/1.73 sqM) Glucose 98 (74-99) mg/dL Calcium 9.8 (8.4-10.2) mg/dL Magnesium 1.7 (1.6-2.3) mg/dL Total Bilirubin 0.9 (0.2-1.3) mg/dL AST 55 (17-59) U/L ALT 32 (4-49) U/L Alkaline Phosphatase 67 (38-126) U/L Troponin I <0.012 (0.000-0.034) ng/mL Total Protein 9.0 H (6.3-8.2) g/dL Albumin 5.2 H (3.5-5.0) g/dL - EKG Data EKG Comments: EKG done at 126 reveals sinus tachycardia with a rate of 103. No evidence of acute ST or T-wave changes. Normal axis. Normal intervals. Normal QRS morphology. - Radiology Data Radiology results: report reviewed, image reviewed Disposition Clinical Impression: Acute kidney injury, Acute anxiety, Depression, Polysubstance abuse, COVID-19, Suicidal ideation Disposition: ADMITTED IP TO THIS HOSP Condition: Fair Referrals: Jolly Molina MD [Primary Care Provider] - 1-2 days Time of Disposition: 02:38
[2021-12-18] MEDS ORDERED: ACETAMINOPHEN TAB 500 MG TAB PO STA (01:20)
--- NOTE | 2021-12-18 01:28 | XR ---
EXAMINATION TYPE: XR chest 1V portable DATE OF EXAM: 12/18/2021 COMPARISON: NONE HISTORY: Chest pain TECHNIQUE: Single view FINDINGS: Heart is normal. Lungs are clear of infiltrate. No heart failure. There are no hilar masses . Costophrenic angles are clear. Bony thorax is intact. IMPRESSION: No active cardiopulmonary disease. Normal heart.
[2021-12-18 01:40] LABS: Basophils # (A) 0.1 k/uL (0-0.2); Basophils % (A) 0 %; Eosinophils # (A) 0.1 k/uL (0-0.7); Eosinophils % (A) 1 %; HCT 51.1 % (39.0-53.0); Lymphocytes % (A) 15 %; MCH 32.1 pg (25.0-35.0); MCHC 33.3 g/dL (31.0-37.0); MCV 96.3 fL (80.0-100.0); Mean Platelet Volume 8.9; Monocytes # (A) 0.5 k/uL (0-1.0); Monocytes % (A) 4 %; Neutrophils # (A) 10.6 k/uL (1.3-7.7); Neutrophils % (A) 80 %; Platelet Count 186 k/uL (150-450); RDW 12.7 % (11.5-15.5); WBC 13.3 k/uL (3.8-10.6)
[2021-12-18 01:59] LABS: Albumin 5.2 g/dL (3.5-5.0); Calcium 9.8 mg/dL (8.4-10.2); Magnesium 1.7 mg/dL (1.6-2.3); Potassium 4.6 mmol/L (3.5-5.1); Total Bilirubin 0.9 mg/dL (0.2-1.3)
[2021-12-18] MEDS ORDERED: SODIUM CHLORIDE 0.9% 1,000 ML IV ONE (02:29)
[2021-12-18] MEDS ORDERED: ALBUTEROL HFA INHALER INHALATION PRN (02:38)
[2021-12-18] MEDS ORDERED: ACETAMINOPHEN TAB 325 MG TAB PO PRN (02:38)
[2021-12-18] MEDS ORDERED: NALOXONE 0.4 MG/ML 1 ML VIAL IV PRN (02:41)
[2021-12-18] MEDS ORDERED: ONDANSETRON 4 MG/2 ML VIAL IVP PRN (02:41)
[2021-12-18] MEDS: ENOXAPARIN 40 MG/0.4 ML SYRINGE SQ SCH ×2 (03:23→17:23)
[2021-12-18 03:47] LABS: INR 1.1 (<1.2); Partial Thromboplastin Time 23.7 sec (22.0-30.0)
[2021-12-18 03:57] LABS: C Reactive Protein <0.5 mg/dL (<1.0); LDH 733 U/L (313-618); Phosphorus 5.5 mg/dL (2.5-4.5)
[2021-12-18] MEDS: LORazepam 1 MG TAB PO PRN ×4 (04:27→21:21)
[2021-12-18] MEDS ORDERED: ENOXAPARIN 30 MG/0.3 ML SYRINGE SQ SCH (09:00)
[2021-12-18] MEDS: DEXAMETHASONE SOD PHOSPHATE 10 MG/ML 1 ML VIAL IV SCH (09:30)
[2021-12-18] MEDS ORDERED: hydrALAZINE HCL 20 MG/ML 1 ML VIAL IVP PRN (10:12)
--- NOTE | 2021-12-18 10:16 | P.NPCON ---
History of Present Illness - Reason for Consult acute renal failure - History of Present Illness Reason for consultation: Acute kidney injury History of present illness: Patient is a 51-year-old male seen for sedation for acute kidney injury. Patient baseline creatinine 0.9 from 09/05/2021. This admission his creatinine was elevated at 2.3. Patient presented to the hospital to not feeling well. Patient states he had a fever for the last 4 days as high as 100F. He did test positive for COVID-19. He is also complaining of suicidal ideation but is better now. Blood pressure is currently on the higher side but was as low as 95/68 this admission. He did receive 1.5 L bolus of normal saline and is currently receiving normal saline at 1 30 mL an hour. He was taking Motrin 3 times a day but is unsure of dose. He denies hematuria or dysuria. No chest pain or shortness of breath. No edema. Denies family history of renal disease. No history of diabetes. Patient does have history of hypertension and is maintained on losartan and metoprolol outpatient. He also has history of BPH and takes Flomax. Vital signs are stable. General: Awake and alert. No acute distress. HEENT: Head exam is unremarkable. LUNGS:Breath sounds decreased. HEART: Rate and Rhythm are regular. ABDOMEN: Soft, no distention. EXTREMITITES: No edema. Past Medical History Past Medical History: Hypertension, Prostate Disorder Additional Past Medical History / Comment(s): colon polyps History of Any Multi-Drug Resistant Organisms: None Reported Past Surgical History: Orthopedic Surgery Additional Past Surgical History / Comment(s): rt shoulder Past Anesthesia/Blood Transfusion Reactions: No Reported Reaction Past Psychological History: Anxiety, Bipolar, Depression Smoking Status: Current every day smoker Past Alcohol Use History: Rare Past Drug Use History: Methamphetamine Medications and Allergies Home Medications Medication Instructions Recorded Confirmed Type Pantoprazole Sodium [Protonix] 40 mg PO AC-BRKFST 10/01/20 12/18/21 History Tamsulosin HCl [Flomax] 0.4 mg PO DAILY 10/01/20 12/18/21 History Ibuprofen [Motrin] 600 mg PO TID PRN 14 Days tab 12/23/20 12/18/21 Rx QUEtiapine [SEROquel] 200 mg PO HS 30 Days tab 12/23/20 12/18/21 Rx Gabapentin [Neurontin] 300 mg PO BID 12/15/21 12/18/21 History Losartan Potassium 100 mg PO DAILY 12/15/21 12/18/21 History Magnesium Oxide [Mag-Ox] 400 mg PO DAILY 12/15/21 12/18/21 History Metoprolol Succinate [Toprol XL] 100 mg PO DAILY 12/15/21 12/18/21 History Venlafaxine HCl ER [Effexor XR] 37.5 mg PO DAILY 12/15/21 12/18/21 History predniSONE [Deltasone] See Taper PO DIRECTED 12/15/21 12/18/21 History valACYclovir HCL [Valtrex] 500 mg PO DAILY 12/15/21 12/18/21 History Nicotine 14Mg/24Hr Patch [Habitrol] 1 patch TRANSDERM DAILY patch 12/17/21 12/18/21 Rx OLANZapine [ZyPREXA] 5 mg PO BID PRN #60 tablet 12/17/21 12/18/21 Rx Allergies Allergy/AdvReac Type Severity Reaction Status Date / Time No Known Allergies Allergy Verified 12/18/21 06:26 Physical Exam Vitals: Vital Signs Temp Pulse Pulse Resp BP BP Pulse Ox 12/18/21 09:31 100 18 168/100 100 12/18/21 07:54 18 150/85 99 12/18/21 06:00 79 16 12/18/21 05:00 90 16 12/18/21 04:46 98 16 144/100 98 12/18/21 03:02 118 H 16 12/18/21 02:49 16 98 12/18/21 00:55 97.6 F 120 H 24 95/68 95 Intake and Output 12/17/21 12/18/21 12/18/21 22:59 06:59 14:59 Other: Voiding Method Urinal Weight 113.398 kg Results - Lab Results Most recent lab results Calcium 9.8 mg/dL (8.4-10.2) 12/18/21 01:29 Phosphorus 5.5 mg/dL (2.5-4.5) H 12/18/21 01:29 Magnesium 1.7 mg/dL (1.6-2.3) 12/18/21 01:29 12/18/21 01:29 12/18/21 01:29 Assessment and Plan Plan: Assessment: 1. Acute kidney injury secondary to ATN secondary to hypotension, infection, NSAIDs and losartan. Creatinine 2.3 on admission. Baseline creatinine near 1. Rule out retention and obstruction. 2. COVID-19 infection. 3. History of BPH. 4. Suicidal ideation. Better now. Consider psychiatry consultation. 5. Benign hypertension. Blood pressure was as low as 95/68 on admission. Most recent reading 150/85. 6. Metabolic acidosis secondary to acute kidney injury. 7. Hyperphosphatemia secondary to acute kidney injury. Plan: Decrease rate of normal saline to 75 mL an hour. Encouraged oral intake. Avoid nephrotoxins. Continue to hold losartan. Resume metoprolol. Check bladder scan to rule out urinary retention. Check renal ultrasound. Check urinalysis. Repeat BMP this afternoon. Thank you for the consultation. I will continue to follow the patient with you during his hospital stay.
[2021-12-18] MEDS: SODIUM CHLORIDE 0.9% 1,000 ML IV SCH ×2 (10:34→21:20)
[2021-12-18 10:48] LABS: Appearance,Urine Clear (Clear); Bilirubin,Urine Negative (Negative); Blood,Urine Negative (Negative); Color,Urine Yellow; Glucose,Urine (UA) Negative (Negative); Ketones,Urine Negative (Negative); Leukocyte Esterase,Urine Negative (Negative); Nitrite,Urine Negative (Negative); Protein,Urine Trace (Negative); Specific Gravity,Urine 1.026 (1.001-1.035); Urobilinogen,Urine <2.0 mg/dL (<2.0)
[2021-12-18 10:54] LABS: Amphetamine Screen,Urine Detected (NotDetected); Barbiturate Screen,Urine Not Detected (NotDetected); Benzodiazepines Screen,Urine Detected (NotDetected); Cocaine Screen,Urine Not Detected (NotDetected); Methadone Screen, Urine Not Detected (NotDetected); Opiate Screen,Urine Not Detected (NotDetected); Oxycodone Screen, Urine Not Detected (NotDetected); Phencyclidine Screen,Urine Not Detected (NotDetected); Tricyclic Antidepressant,Urine Detected (NotDetected); Urn Cannabinoid Scrn Not Detected (NotDetected)
[2021-12-18 10:55] LABS: African American GFR (CKD) 81 (>60 ml/min/1.73 sqM); Anion Gap 7 mmol/L; Blood Urea Nitrogen 18 mg/dL (9-20); Calcium 9.3 mg/dL (8.4-10.2); Carbon Dioxide 26 mmol/L (22-30); Chloride 105 mmol/L (98-107); Glucose 89 mg/dL (74-99); Magnesium 2.2 mg/dL (1.6-2.3); Non-African American GFR(CKD) 70 (>60 ml/min/1.73 sqM); Potassium 4.4 mmol/L (3.5-5.1); Sodium 138 mmol/L (137-145)
--- NOTE | 2021-12-18 13:14 | P.HPIM ---
History of Present Illness H&P Date: 12/18/21 Chief Complaint: Suicidal with COVID-19 (12/13/21) Please refer to my H&P from 12/17/2021 for full details.. Patient returned to the ER reporting he was suicidal. Patient reports [facility] to his positive drug [facility]. Denies chest pain, palpitations or shortness of breath. Mildly tachycardic on admission, resolved. Maintaining O2 sats in the high 90s on room air. Afebrile, WBC 13.3, hemoglobin 17, platelets 186, coagulation panel unremarkable. Sodium 141, potassium 4.6, bicarb 19, BUN 20 with a creatinine of 2.3, magnesium 1.7, ferritin 105, LDH 733, CRP less than 0.5, pro-calcitonin 0.05. UA negative. Toxicology detected tricyclics, amphetamines, methamphetamines and benzodiazepines. Denies chest pain, palpitations or shortness of breath. Denies lightheadedness, dizziness or focal deficits. Suicide precautions and IV fluid hydration initiated. Nephrology and psychiatry consulted. Review of Systems ROS Statement: Those systems with pertinent positive or pertinent negative responses have been documented in the HPI. ROS Other: All systems not noted in ROS Statement are negative. Past Medical History Past Medical History: Hypertension, Prostate Disorder Additional Past Medical History / Comment(s): colon polyps History of Any Multi-Drug Resistant Organisms: None Reported Past Surgical History: Orthopedic Surgery Additional Past Surgical History / Comment(s): rt shoulder Past Anesthesia/Blood Transfusion Reactions: No Reported Reaction Past Psychological History: Anxiety, Bipolar, Depression Smoking Status: Current every day smoker Past Alcohol Use History: Rare Past Drug Use History: Methamphetamine Medications and Allergies Home Medications Medication Instructions Recorded Confirmed Type Pantoprazole Sodium [Protonix] 40 mg PO AC-BRKFST 10/01/20 12/18/21 History Tamsulosin HCl [Flomax] 0.4 mg PO DAILY 10/01/20 12/18/21 History Ibuprofen [Motrin] 600 mg PO TID PRN 14 Days tab 12/23/20 12/18/21 Rx QUEtiapine [SEROquel] 200 mg PO HS 30 Days tab 12/23/20 12/18/21 Rx Gabapentin [Neurontin] 300 mg PO BID 12/15/21 12/18/21 History Losartan Potassium 100 mg PO DAILY 12/15/21 12/18/21 History Magnesium Oxide [Mag-Ox] 400 mg PO DAILY 12/15/21 12/18/21 History Metoprolol Succinate [Toprol XL] 100 mg PO DAILY 12/15/21 12/18/21 History Venlafaxine HCl ER [Effexor XR] 37.5 mg PO DAILY 12/15/21 12/18/21 History predniSONE [Deltasone] See Taper PO DIRECTED 12/15/21 12/18/21 History valACYclovir HCL [Valtrex] 500 mg PO DAILY 12/15/21 12/18/21 History Nicotine 14Mg/24Hr Patch [Habitrol] 1 patch TRANSDERM DAILY patch 12/17/21 12/18/21 Rx OLANZapine [ZyPREXA] 5 mg PO BID PRN #60 tablet 12/17/21 12/18/21 Rx Allergies Allergy/AdvReac Type Severity Reaction Status Date / Time No Known Allergies Allergy Verified 12/18/21 06:26 Physical Exam Vitals: Vital Signs Temp Pulse Pulse Resp BP BP Pulse Ox 12/18/21 09:31 100 18 168/100 100 12/18/21 07:54 18 150/85 99 12/18/21 06:00 79 16 12/18/21 05:00 90 16 12/18/21 04:46 98 16 144/100 98 12/18/21 03:02 118 H 16 12/18/21 02:49 16 98 12/18/21 00:55 97.6 F 120 H 24 95/68 95 Intake and Output 12/17/21 12/18/21 12/18/21 22:59 06:59 14:59 Other: Voiding Method Urinal Weight 113.398 kg PHYSICAL EXAM: VITAL SIGNS: [As above] GENERAL: Alert and oriented 3, sitting up on stretcher, no acute distress HEENT: Atraumatic,Conjunctivae normal. eyes normal. MMM. NECK: Supple, No JVD. No thyroid enlargement. No LNs. CARDIOVASCULAR: S1, S2 regular.No murmur RESPIRATION: Nonlabored, Breath sounds diminished in the bases. ABDOMEN: Soft, nontender . No guarding. no masses palpable. Bowel sounds heard. LEGS: No edema. no swelling NERVOUS SYSTEM: Cranial N 2-12 grossly normal. No focal deficits. Strength and sensation grossly intact. Skin: Warm and dry, no rash Results CBC & Chem 7: 12/18/21 01:29 12/18/21 10:32 Labs: Abnormal Lab Results - Last 24 Hours (Table) 12/18/21 12/18/21 12/18/21 Range/Units 01:29 01:29 01:29 WBC 13.3 H (3.8-10.6) k/uL Neutrophils # 10.6 H (1.3-7.7) k/uL Carbon Dioxide 19 L (22-30) mmol/L Creatinine 2.30 H (0.66-1.25) mg/dL Phosphorus 5.5 H (2.5-4.5) mg/dL Lactate Dehydrogenase 733 H (313-618) U/L Total Protein 9.0 H (6.3-8.2) g/dL Albumin 5.2 H (3.5-5.0) g/dL Urine Protein (Negative) U Tricyclic Antidepress (NotDetected) Ur Amphetamines Screen (NotDetected) U Methamphetamines Scrn (NotDetected) U Benzodiazepines Scrn (NotDetected) 12/18/21 12/18/21 Range/Units 10:30 10:30 WBC (3.8-10.6) k/uL Neutrophils # (1.3-7.7) k/uL Carbon Dioxide (22-30) mmol/L Creatinine (0.66-1.25) mg/dL Phosphorus (2.5-4.5) mg/dL Lactate Dehydrogenase (313-618) U/L Total Protein (6.3-8.2) g/dL Albumin (3.5-5.0) g/dL Urine Protein Trace H (Negative) U Tricyclic Antidepress Detected H (NotDetected) Ur Amphetamines Screen Detected H (NotDetected) U Methamphetamines Scrn Detected H (NotDetected) U Benzodiazepines Scrn Detected H (NotDetected) Assessment and Plan Assessment: Acute kidney injury secondary to ATN related to Covid, losartan. Suicidal ideation Bipolar disorder Polysubstance abuse including Methamphetamine, amphetamines, benzodiazepines Hypertension Nicotine dependence Antisocial personality disorder Acute Covid initially tested positive on 12/13 OP. Plan continue on current medication regime ,monitoring and symptomatic treatment. 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 Patient continues to state that he is suicidal and therefore psych has been consulted again. L osartan placed on hold, IV fluid hydration . Bladder scan pending, ruling out retention .Nephrology consult in place/renal ultrasound. Close monitoring of renal function, electrolytes with repeat BMP and magnesium ordered/pending. Social work consulted regarding patient reports he is homeless, assistance with resources for discharge. Discharge planning in progress for tomorrow pending improvement in renal function and clearance per psychiatry and nephrology. The impression and plan of care has been dictated as directed. : I performed a history and examination of this patient, discussed the same with the dictator. I agree with the dictator's note ,documented as a scribe. Any a dditional findings or plans will be noted.
[2021-12-18] MEDS: ASCORBIC ACID 500 MG TAB PO SCH (13:23)
[2021-12-18] MEDS: ZINC SULFATE 220 MG CAP PO SCH (13:23)
[2021-12-18] MEDS: CHOLECALCIFEROL 25 MCG (1000 IU) TABLET PO SCH (13:23)
[2021-12-18] MEDS: METOPROLOL TARTRATE 50 MG TAB PO SCH ×2 (13:23→23:52)
--- NOTE | 2021-12-18 16:11 | US ---
EXAMINATION TYPE: US kidneys/renal and bladder DATE OF EXAM: 12/18/2021 COMPARISON: NONE CLINICAL HISTORY: debra. debra, COVID+ EXAM MEASUREMENTS: Right Kidney: 11.4 x 5.1 x 4.4 cm Left Kidney: 11.0 x 4.3 x 4.5 cm Right Kidney: No hydronephrosis or masses seen Left Kidney: No hydronephrosis or masses seen Bladder: wnl Bilateral Jets seen: left IMPRESSION: 1. Unremarkable renal ultrasound
[2021-12-18] MEDS ORDERED: QUEtiapine 400 MG TAB PO SCH (23:15)
[2021-12-19] MEDS: ASCORBIC ACID 500 MG TAB PO SCH ×2 (00:09→07:31)
[2021-12-19] MEDS: SODIUM CHLORIDE 0.9% 1,000 ML IV SCH (00:10)
[2021-12-19 02:26] VITALS: RESP 16
[2021-12-19] MEDS: ENOXAPARIN 40 MG/0.4 ML SYRINGE SQ SCH (07:31)
[2021-12-19] MEDS: ZINC SULFATE 220 MG CAP PO SCH (07:31)
[2021-12-19] MEDS: CHOLECALCIFEROL 25 MCG (1000 IU) TABLET PO SCH (07:31)
[2021-12-19] MEDS: METOPROLOL TARTRATE 50 MG TAB PO SCH (07:32)
[2021-12-19] MEDS: DEXAMETHASONE SOD PHOSPHATE 10 MG/ML 1 ML VIAL IV SCH (07:32)
[2021-12-19 07:37] VITALS: BP 149/93; PULSE 61; TEMP 97.6
[2021-12-19 09:22] LABS: Basophils # (A) 0.01 X 10*3/uL (0.00-0.10); Basophils % (A) 0.1 %; Eosinophils # (A) 0 X 10*3/uL (0.04-0.35); Eosinophils % (A) 0 %; HCT 48.4 % (39.6-50.0); HGB 15.9 g/dL (13.0-17.0); Immature Grans, Automated 0.5 %; Lymphocytes # (A) 1.96 X 10*3/uL (0.90-5.00); Lymphocytes % (A) 22.1 %; MCH 31.4 pg (27.0-32.0); MCHC 32.9 g/dL (32.0-37.0); MCV 95.5 fL (80.0-97.0); Mean Platelet Volume 11.5 fL (9.5-12.2); Monocytes # (A) 0.36 X 10*3/uL (0.20-1.00); Monocytes % (A) 4.1 %; NRBC Per 100 WBC 0 /100 WBCS (0.0-0.0); Neutrophils # (A) 6.51 X 10*3/uL (1.80-7.70); Neutrophils % (A) 73.2 %; Platelet Count 144 X 10*3/uL (140-440); RBC 5.07 X 10*6/uL (4.40-5.60); RDW 12.6 % (11.5-14.5); WBC 8.88 X 10*3/uL (4.50-10.00)
[2021-12-19 10:23] LABS: African American GFR (CKD) 90.2 (60.0-200.0); Albumin 4.7 g/dL (3.8-4.9); Albumin/Globulin Ratio 1.68 (1.60-3.17); BUN/Creat Ratio 15.09 Ratio (12.00-20.00); Blood Urea Nitrogen 16.6 mg/dL (9.0-27.0); Globulin 2.8 g/dL (1.6-3.3); Magnesium 2.2 mg/dL (1.5-2.4); Non-African American GFR(CKD) 77.9 (60.0-200.0); Potassium 4.5 mmol/L (3.5-5.5); Total Bilirubin 0.6 mg/dL (0.30-1.20); Total Protein 7.5 g/dL (6.2-8.2)
[2021-12-19] MEDS: LORazepam 1 MG TAB PO PRN (10:39)
--- NOTE | 2021-12-19 10:40 | P.DS ---
Providers Date of admission: 12/18/21 03:24 Expected date of discharge: 12/19/21 Attending physician: Flakito Pritchett MD Consults: 12/18/21 02:38 Consult Physician Urgent Consulting Provider: Julia Parker Consult Reason/Comments: Acute kidney injury, COVID-19 Do you want consulting provider notified?: Yes, Notify in am 12/18/21 12:41 Consult Physician Routine Consulting Provider: Derrick Martin Consult Reason/Comments: suicidal ideation Do you want consulting provider notified?: Yes Primary care physician: [facility] Course: Final Diagnoses: Acute kidney injury secondary to ATN related to Covid, losartan, Motrin. Improved Suicidal ideation Bipolar disorder Polysubstance abuse including Methamphetamine, amphetamines, benzodiazepines Hypertension Nicotine dependence Antisocial personality disorder Acute Covid initially tested positive on 12/13 OP. Complete quarantine as advised. Hospital course:Please refer to my H&P from 12/17/2021 for full details.. Patient returned to the ER reporting he was suicidal. Patient reports [facility] to his positive [facility]. 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 Mildly tachycardic on admission, resolved. Maintaining O2 sats in the high 90s on room air. Afebrile, WBC 13.3, hemoglobin 17, platelets 186, coagulation panel unremarkable. Sodium 141, potassium 4.6, bicarb 19, BUN 20 with a creatinine of 2.3, magnesium 1.7, ferritin 105, LDH 733, CRP less than 0.5, pro-calcitonin 0.05. UA negative. Toxicology detected tricyclics, amphetamines, methamphetamines and benzodiazepines. Denies chest pain, palpitations or shortness of breath. Denies lightheadedness, dizziness or focal deficits. Suicide precautions and IV fluid hydration initiated. Nephrology and psychiatry consulted. Suicidal precautions remain intact.Significant clinical improvement. Received Seroquel 400 mg last night, reports he slept well. Denies hallucinations, shadows, or paranoia. Eager for discharge,denies suicidal ideation this morning. He reports he has a safe place to go at discharge. Maintain suicide precautions. Patient will be discharged home today in a stable condition with guarded prognosis pending psychiatry reevaluation, recommendations and clearance. Motrin discontinued, patient will resume home medication losartan at [place]. The impression and plan of care has been dictated as directed. : I performed a history and examination of this patient, discussed the same with the dictator. I agree with the dictator's note ,documented as a scribe. Any additional findings or plans will be noted. Patient Condition at Discharge: Stable Plan - Discharge Summary Discharge Rx Participant: Yes New Discharge Prescriptions: New Zinc Sulfate [Orazinc] 220 mg PO DAILY cap Cholecalciferol [Vitamin D3 (25 Mcg = 1000 Iu)] 50 mcg PO DAILY tab Ascorbic Acid [Vitamin C] 500 mg PO BID tab Continue Tamsulosin HCl [Flomax] 0.4 mg PO DAILY Pantoprazole Sodium [Protonix] 40 mg PO AC-BRKFST QUEtiapine [SEROquel] 200 mg PO HS 30 Days tab Metoprolol Succinate [Toprol XL] 100 mg PO DAILY predniSONE [Deltasone] See Taper PO DIRECTED valACYclovir HCL [Valtrex] 500 mg PO DAILY Magnesium Oxide [Mag-Ox] 400 mg PO DAILY Losartan Potassium 100 mg PO DAILY Gabapentin [Neurontin] 300 mg PO BID Venlafaxine HCl ER [Effexor XR] 37.5 mg PO DAILY Nicotine 14Mg/24Hr Patch [Habitrol] 1 patch TRANSDERM DAILY patch OLANZapine [ZyPREXA] 5 mg PO BID PRN #60 tablet PRN Reason: Anxiety Discontinued Ibuprofen [Motrin] 600 mg PO TID PRN 14 Days tab PRN Reason: Pain Discharge Medication List Pantoprazole Sodium [Protonix] 40 mg PO AC-BRKFST 10/01/20 [History] Tamsulosin HCl [Flomax] 0.4 mg PO DAILY 10/01/20 [History] QUEtiapine [SEROquel] 200 mg PO HS 30 Days tab 12/23/20 [Rx] Gabapentin [Neurontin] 300 mg PO BID 12/15/21 [History] Losartan Potassium 100 mg PO DAILY 12/15/21 [History] Magnesium Oxide [Mag-Ox] 400 mg PO DAILY 12/15/21 [History] Metoprolol Succinate [Toprol XL] 100 mg PO DAILY 12/15/21 [History] Venlafaxine HCl ER [Effexor XR] 37.5 mg PO DAILY 12/15/21 [History] predniSONE [Deltasone] See Taper PO DIRECTED 12/15/21 [History] valACYclovir HCL [Valtrex] 500 mg PO DAILY 12/15/21 [History] Nicotine 14Mg/24Hr Patch [Habitrol] 1 patch TRANSDERM DAILY patch 12/17/21 [Rx] OLANZapine [ZyPREXA] 5 mg PO BID PRN #60 tablet 12/17/21 [Rx] Ascorbic Acid [Vitamin C] 500 mg PO BID tab 12/19/21 [Rx] Cholecalciferol [Vitamin D3 (25 Mcg = 1000 Iu)] 50 mcg PO DAILY tab 12/19/21 [Rx] Zinc Sulfate [Orazinc] 220 mg PO DAILY cap 12/19/21 [Rx] Follow up Appointment(s)/Referral(s): Dr. FIONA psychiatry [Other] - 1 Week Jolly Molina MD [Primary Care Provider] - 1 Week Activity/Diet/Wound Care/Special Instructions: Pending evaluation and clearance per psychiatry.
--- NOTE | 2021-12-19 10:53 | P.PN ---
Subjective Patient is seen for follow-up for acute kidney injury. He was admitted to the hospital with complaints of increased weakness fatigue and fever. Patient tested positive for COVID-19. He also had suicidal ideation for which he currently has a sitter. Currently maintained on IV fluids Positive history of use of Motrin prior to admission Serum creatinine down to 1.1 from 2.3 on initial admission Good urine output Maintained on IV fluids. 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 - Labs CBC & Chem 7: 12/19/21 03:34 12/19/21 03:34 Labs: Abnormal Lab Results - Last 24 Hours (Table) 12/18/21 12/18/21 12/19/21 Range/Units 10:30 10:30 03:34 Eosinophils # 0 L (0.04-0.35) X 10*3/uL Glucose (70-110) mg/dL AST (14-35) U/L Urine Protein Trace H (Negative) U Tricyclic Antidepress Detected H (NotDetected) Ur Amphetamines Screen Detected H (NotDetected) U Methamphetamines Scrn Detected H (NotDetected) U Benzodiazepines Scrn Detected H (NotDetected) 12/19/21 Range/Units 03:34 Eosinophils # (0.04-0.35) X 10*3/uL Glucose 130 H (70-110) mg/dL AST 44 H (14-35) U/L Urine Protein (Negative) U Tricyclic Antidepress (NotDetected) Ur Amphetamines Screen (NotDetected) U Methamphetamines Scrn (NotDetected) U Benzodiazepines Scrn (NotDetected) Assessment and Plan Assessment: 1. Acute kidney injury secondary to hypotension in the setting of use of angiotensin receptor blockers, NSAIDs, underlying COVID-19 infection. Serum creatinine previously around 1. UA is benign. Ultrasound is unremarkable 2. COVID-19 infection. O2 sats 95% on room air. Chest x-ray is unremarkable 3. History of BPH 4. Suicidal ideation currently improved. Patient is with a sitter Plan: Patient is advised to avoid use of NSAIDs. Can resume angiotensin receptor blockers post discharge as blood pressure is now on the higher side DC IV fluids
--- NOTE | 2021-12-19 14:32 | P.CN ---
Psychiatric Consult - . Consult date: 12/19/21 Consult:: 12/19/21 14:31 IDENTIFYING DATA: This patient is a 51-year-old male with significant history of polysubstance abuse who presents emergency department for suicidal ideation HISTORY OF PRESENT ILLNESS: The patient presented to the hospital on 12/18/2021 with a complaint of suicidal ideation. The patient was admitted to the medical floor for management of acute kidney injury. Psychiatry has been consulted for evaluation of suicidal ideation. The patient was [facility] of his [facility] house due to his positive drug screens. He has been attempting to come on to the psychiatric unit multiple times and was denied after multiple assessments that express concern for benzodiazepine seeking behavior and secondary gain. Upon evaluation on the medical floor, the patient is vehemently denying any suicidal or homicidal ideation, intention, and/or plan. He expresses future orientation with a strong desire to go to work immediately after being discharged from this hospital. He reports no other psychiatric pathology and denies any auditory or visual hallucinations. He was not paranoid or other delusions. The patient reports that the Seroquel 400 mg at bedtime as been very beneficial for him. PAST PSYCHIATRIC HISTORY: As per assessment on 12/17/2021 - "Patient states that he has a history of bipolar disorder. Patient was last admitted to the mental health unit in December 2020. Patient is currently on Seroquel 20 mg daily at bedtime and also Effexor. These medications are prescribed by his PCP and he does not have any psychiatric outpatient follow-up. He states that he has been hospitalized several times in the past. Patient denies any psychiatric outpatient follow-up. Patient denies any history of suicide attempts in the past." PAST MEDICAL HISTORY: Past Medical History: Hypertension, Prostate Disorder Additional Past Medical History / Comment(s): colon polyps History of Any Multi-Drug Resistant Organisms: None Reported Past Surgical History: Orthopedic Surgery Additional Past Surgical History / Comment(s): rt shoulder Past Anesthesia/Blood Transfusion Reactions: No Reported Reaction Past Psychological History: Anxiety, Bipolar, Depression Smoking Status: Current every day smoker Past Alcohol Use History: Rare Past Drug Use History: Methamphetamine ALLERGIES: NO KNOWN DRUG ALLERGIES CHEMICAL DEPENDENCY HISTORY: Patient abuses multiple substances including methamphetamines and benzodiazepines FAMILY PSYCHIATRIC/SUBSTANCE USE HISTORY: Mother reportedly has bipolar disorder. SOCIAL HISTORY: As per assessment on 12/17/2021 - "Patient was born and raised in [place] [facility]. He states that he completed his GED after dropping out of school. He claims that he has had several legal problems in the past and has been to [facility] [place] [facility] including for larceny, robbery and assault. 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 Patient appears to have fair hygiene and grooming wearing hospital gown with fair eye contact. Behavior: Patient is calmly lying in bed without any agitated behavior. Speech: Patient's speech is fluent and nonpressured. Mood/Affect: Patient reports their mood is "I'm ready to get out of here and work", affect is congruent and bright Suicidality/Homicidality: Patient denies having any suicidal or homicidal ideation intent or plan. Perceptions: Patient denies any visual hallucinations and denies any auditory hallucinations Though content/process: There is no evidence of any delusional thought content and thought process is linear and goal-directed. Memory and concentration: AOX3, grossly intact for the purposes of this session. Can spell "WORLD" backwards Judgment and insight: Chronically poor and manipulative Vital Signs Temp 97.6 F 12/19/21 07:34 Pulse 61 12/19/21 07:34 Resp 16 12/19/21 07:34 BP 149/93 12/19/21 07:34 Pulse Ox 95 12/19/21 07:34 FiO2 Intake & Output 12/18/21 12/19/21 12/19/21 18:59 06:59 18:59 Weight 113.398 kg Other: # Voids 1 3 Laboratory Results - Last 24 Hours 12/19/21 12/19/21 12/19/21 03:34 03:34 03:34 WBC 8.88 RBC 5.07 Hgb 15.9 Hct 48.4 MCV 95.5 MCH 31.4 MCHC 32.9 RDW 12.6 Plt Count 144 MPV 11.5 Immature Gran % (Auto) 0.5 Absolute Nucleated RBC 0 Neutrophils % 73.2 Lymphocytes % 22.1 Monocytes % 4.1 Eosinophils % 0 Basophils % 0.1 Immature Gran # 0.04 Neutrophils # 6.51 Lymphocytes # 1.96 Monocytes # 0.36 Eosinophils # 0 L Basophils # 0.01 NRBC/100 WBC Diff 0 Sodium 140 Potassium 4.5 Chloride 105 Carbon Dioxide 24.0 Anion Gap 11.00 BUN 16.6 Creatinine 1.1 Est GFR (CKD-EPI)AfAm 90.2 Est GFR (CKD-EPI)NonAf 77.9 BUN/Creatinine Ratio 15.09 Glucose 130 H Calcium 10.0 Magnesium 2.2 Total Bilirubin 0.60 AST 44 H ALT 32 Alkaline Phosphatase 54 Troponin I <0.012 Total Protein 7.5 Albumin 4.7 Globulin 2.8 Albumin/Globulin Ratio 1.68 IMPRESSIONS: Bipolar disorder, as per history Methamphetamine use disorder Nicotine dependence Benzodiazepine abuse Antisocial personality disorder PLAN: -At this time patient DOES NOT meet criteria for inpatient psychiatric admission. The patient is not presenting with any imminent risk of harm to self or others. Furthermore, although the patient may chronically endorsed suicidal ideation, it appears that he will say this in order to obtain secondary gain such as benzodiazepines and housing which has been documented during previous assessments. -Would recommend the following medication changes/additions: No medication recommendations are made at this time. Okay to continue Seroquel. -Discontinue one-to-one sitter -Patient is cleared psychiatrically for discharge. -Psychiatry will sign off at this point, please contact with any questions. 12/19/21 14:32
== END 2021-12-19 13:47 | disposition home or self-care (01) ==
LOC: EC 00:54 → 4SSUR 03:24 → INTOOBSV 03:24 → 4SSUR 12:48 → UNDODISIN 12-19 13:47
PROVIDERS: ADMIT Family Medicine; ATTEND Family Medicine
DX: N17.0 Acute kidney failure with tubular necrosis (principal); U07.1 COVID-19; F41.9 Anxiety disorder, unspecified; E87.2 Acidosis; R45.851 Suicidal ideations; T39.395A Adverse effect of other nonsteroidal anti-inflammatory drugs [NSAID], initial encounter; F15.10 Other stimulant abuse, uncomplicated; F13.10 Sedative, hypnotic or anxiolytic abuse, uncomplicated; F60.2 Antisocial personality disorder; I10 Essential (primary) hypertension; F31.9 Bipolar disorder, unspecified; F17.210 Nicotine dependence, cigarettes, uncomplicated; E83.39 Other disorders of phosphorus metabolism; N40.0 Benign prostatic hyperplasia without lower urinary tract symptoms; R00.0 Tachycardia, unspecified; Z59.00 Homelessness unspecified; Z79.899 Other long term (current) drug therapy; Z87.19 Personal history of other diseases of the digestive system; Z86.010 Personal history of colon polyps; X58.XXXA Exposure to other specified factors, initial encounter
CPT/HCPCS: 96376; 96372 ×2; 82075; 96361; 96374; 96375; 99285; 51798; 36415; 93005; 85379; 83880; 80053 ×2; 80048; 82728; 83615; 83735 ×2; 84100; 84484 ×2; 85025 ×2; 85384; 85610; 85730; 86140; 81003; 80306; 84145; 71045; 76770; G0378 ×2; J0360; J1100 ×2; J1650 ×2

== ENCOUNTER 2021-12-22 12:06 | Emergency (ER) | payer OTHER ==
[2021-12-22 12:13] VITALS: BP 104/68; RESP 18
--- NOTE | 2021-12-22 14:20 | XR ---
EXAMINATION TYPE: XR chest 2V DATE OF EXAM: 12/22/2021 COMPARISON: Chest x-ray December 18, 2021 HISTORY: Difficulty in breathing. TECHNIQUE: Frontal and lateral views of the chest are obtained. FINDINGS: There is no suspicious new focal air space opacity, pleural effusion, or pneumothorax seen . The cardiac silhouette size remains within normal limits. The osseous structures are intact. Impression: No acute process. No significant change from prior.
--- NOTE | 2021-12-22 14:25 | ED ---
General Adult HPI - General Chief complaint: Upper Respiratory Infection Stated complaint: COVID + Time Seen by Provider: 12/22/21 13:20 Source: patient, RN notes reviewed, old records reviewed Mode of arrival: ambulatory Limitations: no limitations - History of Present Illness Initial comments: This is a 51-year-old male who presents emergency department stating that he was diagnosed with COVID on December 13 and after that he had been free of drugs for a year but he decided to go on a godinez. Patient states that he did cocaine and methamphetamines and he did it hard for about 3 or 4 days per patient comes in today because he states he continues to cough and feels dehydrated. Patient denies any nausea vomiting. Patient states he is able to take oral fluids without problem. Patient denies any fever. Patient denies shortness of breath or chest pain. Patient denies any abdominal pain. Patient has no other complaints. - Related Data Home Medications Medication Instructions Recorded Confirmed Pantoprazole Sodium [Protonix] 40 mg PO AC-BRKFST 10/01/20 12/18/21 Tamsulosin HCl [Flomax] 0.4 mg PO DAILY 10/01/20 12/18/21 Gabapentin [Neurontin] 300 mg PO BID 12/15/21 12/18/21 Losartan Potassium 100 mg PO DAILY 12/15/21 12/18/21 Magnesium Oxide [Mag-Ox] 400 mg PO DAILY 12/15/21 12/18/21 Metoprolol Succinate [Toprol XL] 100 mg PO DAILY 12/15/21 12/18/21 Venlafaxine HCl ER [Effexor XR] 37.5 mg PO DAILY 12/15/21 12/18/21 predniSONE [Deltasone] See Taper PO DIRECTED 12/15/21 12/18/21 valACYclovir HCL [Valtrex] 500 mg PO DAILY 12/15/21 12/18/21 Previous Rx's Medication Instructions Recorded QUEtiapine [SEROquel] 200 mg PO HS 30 Days tab 12/23/20 Nicotine 14Mg/24Hr Patch [Habitrol] 1 patch TRANSDERM DAILY patch 12/17/21 OLANZapine [ZyPREXA] 5 mg PO BID PRN #60 tablet 12/17/21 Ascorbic Acid [Vitamin C] 500 mg PO BID tab 12/19/21 Cholecalciferol [Vitamin D3 (25 50 mcg PO DAILY tab 12/19/21 Mcg = 1000 Iu)] Zinc Sulfate [Orazinc] 220 mg PO DAILY cap 12/19/21 Allergies Allergy/AdvReac Type Severity Reaction Status Date / Time No Known Allergies Allergy Verified 12/22/21 12:14 Review of Systems ROS Statement: Those systems with pertinent positive or pertinent negative responses have been documented in the HPI. ROS Other: All systems not noted in ROS Statement are negative. Past Medical History Past Medical History: Hypertension, Prostate Disorder Additional Past Medical History / Comment(s): colon polyps History of Any Multi-Drug Resistant Organisms: None Reported Past Surgical History: Orthopedic Surgery Additional Past Surgical History / Comment(s): rt shoulder Past Anesthesia/Blood Transfusion Reactions: No Reported Reaction Past Psychological History: Anxiety, Bipolar, Depression Smoking Status: Current every day smoker Past Alcohol Use History: Rare Past Drug Use History: Cocaine, Methamphetamine General Exam - General Exam Comments Initial Comments: GENERAL: Patient is well-developed and well-nourished. Patient is nontoxic and well- hydrated and is in no acute distress. ENT: Neck is soft and supple. No significant lymphadenopathy is noted. Oropharynx is clear. Moist mucous membranes. Neck has full range of motion without eliciting any pain. EYES: The sclera were anicteric and conjunctiva were pink and moist. Extraocular movements were intact and pupils were equal round and reactive to light. Eyelids were unremarkable. PULMONARY: Unlabored respirations. Good breath sounds bilaterally. No audible rales rhonchi or wheezing was noted. CARDIOVASCULAR: Patient is tachycardic at 105 bpm. ABDOMEN: Soft and nontender with normal bowel sounds. SKIN: Skin is clear with no lesions or rashes and otherwise unremarkable. NEUROLOGIC: Patient is alert and oriented x3. Cranial nerves II through XII are grossly intact. Motor and sensory are also intact. Normal speech, volume and content. Symmetrical smile. MUSCULOSKELETAL: Normal extremities with adequate strength and full range of motion. LYMPHATICS: No significant lymphadenopathy is noted PSYCHIATRIC: Normal psychiatric evaluation. Limitations: no limitations Course Vital Signs 12/22/21 12:07 Temperature 98.1 F Pulse Rate 120 H Respiratory 18 Rate Blood Pressure 104/68 O2 Sat by Pulse 94 L Oximetry Medical Decision Making - Medical Decision Making EKG shows sinus tachycardia at 160 bpm IN interval 160 QRS is 88 QT interval 350 QTC is 384. Patient's EKG shows no ST segment elevation or depression Disposition Clinical Impression: COVID, Polysubstance abuse Disposition: HOME SELF-CARE Condition: Good Instructions (If sedation given, give patient instructions): COVID-19 (Coronavirus Disease 2019) (ED), Polysubstance Abuse (ED) Is patient prescribed a controlled substance at d/c from ED?: No Referrals: Jolly Molina MD [Primary Care Provider] - 1-2 days Time of Disposition: 14:24
[2021-12-22 14:41] VITALS: PULSE 96; TEMP 98
== END 2021-12-22 14:41 | disposition home or self-care (01) ==
LOC: EC 12:06
DX: U07.1 COVID-19 (principal); F19.10 Other psychoactive substance abuse, uncomplicated; I10 Essential (primary) hypertension; F41.9 Anxiety disorder, unspecified; F31.9 Bipolar disorder, unspecified; F17.200 Nicotine dependence, unspecified, uncomplicated; Z79.899 Other long term (current) drug therapy
CPT/HCPCS: 71046; 93005; 99284

== ENCOUNTER 2024-11-13 14:28 | Emergency (ER) | payer OTHER ==
[2024-11-13] MEDS: SODIUM CHLORIDE 0.9% 1,000 ML IV ONE (15:14)
[2024-11-13] MEDS: ACETAMINOPHEN TAB 500 MG TAB PO STA (15:44)
[2024-11-13] MEDS: IBUPROFEN 400 MG TAB PO STA (15:45)
[2024-11-13 15:51] LABS: Basophils # (A) 0.03 10*3/uL (0.00-0.10); Basophils % (A) 0.5 %; Eosinophils # (A) 0.02 10*3/uL (0.04-0.35); Eosinophils % (A) 0.3 %; HCT 40.4 % (39.6-50.0); HGB 14.4 g/dL (13.0-17.0); Lymphocytes # (A) 0.45 10*3/uL (0.90-5.00); Lymphocytes % (A) 7.1 %; MCH 30.8 pg (27.0-32.0); MCHC 35.6 g/dL (32.0-37.0); MCV 86.3 fL (80.0-97.0); Mean Platelet Volume 10.5 fL (9.5-12.2); Monocytes # (A) 0.23 10*3/uL (0.20-1.00); Monocytes % (A) 3.7 %; Neutrophils # (A) 5.55 10*3/uL (1.80-7.70); Neutrophils % (A) 88.1 %; Platelet Count 142 10*3/uL (140-440); RBC 4.68 10*6/uL (4.40-5.60); RDW 12.7 % (11.5-14.5)
--- NOTE | 2024-11-13 15:52 | ED ---
General Adult HPI - General Chief complaint: Fever Stated complaint: fever Time Seen by Provider: 11/13/24 14:37 Source: patient, RN notes reviewed Mode of arrival: EMS Limitations: no limitations - History of Present Illness Initial comments: Patient is a 54-year-old male present to the emergency department for fever. Patient presents from [place] where he has been there approximately 3 days. Patient is there for alcohol as well as pill use and other things. Patient states he started feeling unwell today while playing volleyball. Patient feels achy all over. Mild nasal congestion. Patient states he missed his dose of 600 Neurontin and 2 mg Ativan and does request these. - Related Data Home Medications Medication Instructions Recorded Confirmed Pantoprazole Sodium [Protonix] 40 mg PO AC-BRKFST 10/01/20 12/29/21 Tamsulosin HCl [Flomax] 0.4 mg PO DAILY 10/01/20 12/29/21 Gabapentin [Neurontin] 300 mg PO BID 12/15/21 12/29/21 Losartan Potassium 100 mg PO DAILY 12/15/21 12/29/21 Magnesium Oxide [Mag-Ox] 400 mg PO DAILY 12/15/21 12/29/21 Metoprolol Succinate [Toprol XL] 100 mg PO DAILY 12/15/21 12/29/21 Venlafaxine HCl ER [Effexor XR] 37.5 mg PO DAILY 12/15/21 12/29/21 valACYclovir HCL [Valtrex] 500 mg PO DAILY 12/15/21 12/29/21 Cyanocobalamin [Vitamin B-12] 500 mcg PO DAILY 12/29/21 12/29/21 Sulfamethox-Tmp 800-160Mg [Bactrim 1 tab PO Q12HR 12/29/21 12/29/21 DS 800-160 mg] Previous Rx's Medication Instructions Recorded QUEtiapine [SEROquel] 200 mg PO HS 30 Days tab 12/23/20 Nicotine 14Mg/24Hr Patch [Habitrol] 1 patch TRANSDERM DAILY patch 12/17/21 OLANZapine [ZyPREXA] 5 mg PO BID PRN #60 tablet 12/17/21 Ascorbic Acid [Vitamin C] 500 mg PO BID tab 12/19/21 Cholecalciferol [Vitamin D3 (25 50 mcg PO DAILY tab 12/19/21 Mcg = 1000 Iu)] Zinc Sulfate [Orazinc] 220 mg PO DAILY cap 12/19/21 Allergies Allergy/AdvReac Type Severity Reaction Status Date / Time No Known Allergies Allergy Verified 11/13/24 14:55 Review of Systems ROS Statement: Those systems with pertinent positive or pertinent negative responses have been documented in the HPI. ROS Other: All systems not noted in ROS Statement are negative. Constitutional: Reports: as per HPI, fever ENT: Denies: ear pain Respiratory: Denies: cough, dyspnea Cardiovascular: Denies: chest pain Endocrine: Denies: fatigue Gastrointestinal: Denies: abdominal pain Musculoskeletal: Denies: back pain Skin: Denies: rash Past Medical History Past Medical History: Hypertension, Prostate Disorder Additional Past Medical History / Comment(s): colon polyps History of Any Multi-Drug Resistant Organisms: None Reported Past Surgical History: Orthopedic Surgery Additional Past Surgical History / Comment(s): rt shoulder Past Anesthesia/Blood Transfusion Reactions: No Reported Reaction Past Psychological History: Anxiety, Bipolar, Depression Past Alcohol Use History: None Reported, Heavy Past Drug Use History: Cocaine, Methamphetamine General Exam Limitations: no limitations General appearance: alert Head exam: Present: normocephalic Eye exam: Present: normal appearance ENT exam: Present: normal oropharynx Neck exam: Present: normal inspection. Absent: meningismus Respiratory exam: Present: normal lung sounds bilaterally Cardiovascular Exam: Present: regular rate, normal rhythm GI/Abdominal exam: Present: soft. Absent: tenderness Extremities exam: Present: normal inspection. Absent: pedal edema, calf tenderness Neurological exam: Present: alert Psychiatric exam: Present: normal affect, normal mood Skin exam: Present: normal color Course Vital Signs 11/13/24 11/13/24 11/13/24 14:49 15:46 17:08 Temperature 103.2 F H 102.3 F H 100.0 F H Pulse Rate 122 H 105 H Respiratory 20 16 Rate Blood Pressure 124/76 O2 Sat by Pulse 98 95 Oximetry Medical Decision Making - Medical Decision Making Was pt. sent in by a medical professional or institution (, PA, TRAVEL PT, urgent care, hospital, or long term...) When possible be specific @ -Patient presents from [place] Did you speak to anyone other than the patient for history (EMS, parent, family, police, friend...)? What history was obtained from this source @ -No Did you review nursing and triage notes (agree or disagree)? Why? @ -I reviewed and agree with nursing and triage notes Were old charts reviewed (outside hosp., previous admission, EMS record, old EKG, old radiological studies, urgent care reports/EKG's, long term records)? Report findings @ -Chart reviewed from [place] Differential Diagnosis (chest pain, altered mental status, abdominal pain women, abdominal pain men, vaginal bleeding, weakness, fever, dyspnea, syncope, headache, dizziness, GI bleed, back pain, seizure, CVA, palpatations, mental health, musculoskeletal)? @ -Differential Fever: Pneumonia, viral URI, endocarditis, myocarditis, pericarditis, otitis, sinusitis, peritonsillar Abscess, retropharyngeal Abscess, epiglottitis, peritonitis, appendicitis, Camryn cystitis, diverticulitis, hepatitis, colitis, UTI, PID, TOA, pyelonephritis, prostatitis, epididymitis, meningitis, encephalitis, pulmonary embolism, CVA, thyroid storm, pancreatitis, adrenal crisis, cavernous sinus thrombosis, this is not meant to be an all-inclusive list. EKG interpreted by me (3pts min.). @ -As above X-rays interpreted by me (1pt min.). @ -None done CT interpreted by me (1pt min.). @ -None done U/S interpreted by me (1pt. min.). @ -None done What testing was considered but not performed or refused? (CT, X-rays, U/S, labs)? Why? @ -Considered additional investigation including ultrasound or cultures however patient refuses any history of injecting substances What meds were considered but not given or refused? Why? @ -None Did you discuss the management of the patient with other professionals (professionals i.e. , PA, TRAVEL PT, lab, RT, psych nurse, aids social worker, vascular tech, teacher, ethics officer, nurse case manager)? Give summary @ -No Was smoking cessation discussed for >3mins.? @ -No Was critical care preformed (if so, how long)? @ -No Were there social determinants of health that impacted care today? How? (Homelessness, low income, unemployed, alcoholism, drug addiction, transportation, low edu. Level, literacy, decrease access to med. care, fpc, rehab)? @ -No Was there de-escalation of care discussed even if they declined (Discuss DNR or withdrawal of care, Hospice)? DNR status @ -No What co-morbidities impacted this encounter? (DM, HTN, Smoking, COPD, CAD, Cancer, CVA, ARF, Chemo, Hep., AIDS, mental health diagnosis, sleep apnea, morbid obesity)? @ -None Was patient admitted / discharged? Hospital course, mention meds given and route, prescriptions, significant lab abnormalities, going to OR and other pertinent info. @ -Patient presents with fever. Patient states he was outside for a while yesterday playing volleyball. Patient has minimal upper respiratory congestion, no other complaints. On reevaluation after Tylenol Motrin and fluids patient is symptom-free. Patient has no complaints and would like to be discharged. Patient is updated on results. Undiagnosed new problem with uncertain prognosis? @ -No Drug Therapy requiring intensive monitoring for toxicity (Heparin, Nitro, Insulin, Cardizem)? @ -No Were any procedures done? @ -No Diagnosis/symptom? @ -Fever Acute, or Chronic, or Acute on Chronic? @ -Acute Uncomplicated (without systemic symptoms) or Complicated (systemic symptoms)? @ -Default Side effects of treatment? @ -No Exacerbation, Progression, or Severe Exacerbation? @ -No Poses a threat to life or bodily function? How? (Chest pain, USA, AL, pneumonia, PE, COPD, DKA, ARF, appy, cholecystitis, CVA, Diverticulitis, Homicidal, Abbott icidal, threat to staff... and all critical care pts) @ -No - Lab Data Result diagrams: 11/13/24 15:15 11/13/24 15:15 Lab Results 11/13/24 11/13/24 11/13/24 Range/Units 15:15 15:15 15:15 WBC 6.30 (4.50-10.00) 10*3/uL RBC 4.68 (4.40-5.60) 10*6/uL Hgb 14.4 (13.0-17.0) g/dL Hct 40.4 (39.6-50.0) % MCV 86.3 (80.0-97.0) fL MCH 30.8 (27.0-32.0) pg MCHC 35.6 (32.0-37.0) g/dL Plt Count 142 (140-440) 10*3/uL MPV 10.5 (9.5-12.2) fL Immature Gran % (Auto) 0.3 % Neutrophils % 88.1 % Lymphocytes % 7.1 % Monocytes % 3.7 % Eosinophils % 0.3 % Basophils % 0.5 % Immature Gran # 0.02 (0.00-0.04) 10*3/uL Neutrophils # 5.55 (1.80-7.70) 10*3/uL Lymphocytes # 0.45 L (0.90-5.00) 10*3/uL Monocytes # 0.23 (0.20-1.00) 10*3/uL Eosinophils # 0.02 L (0.04-0.35) 10*3/uL Basophils # 0.03 (0.00-0.10) 10*3/uL Sodium 137 (137-145) mmol/L Potassium 4.0 (3.5-5.1) mmol/L Chloride 102 (98-107) mmol/L Carbon Dioxide 25 (22-30) mmol/L Anion Gap 10 mmol/L BUN 15 (9-20) mg/dL Creatinine 0.84 (0.66-1.25) mg/dL Est GFR (CKD-EPI)AfAm >90 (>60 ml/min/1.73 sqM) Est GFR (CKD-EPI)NonAf >90 (>60 ml/min/1.73 sqM) Glucose 124 H (74-99) mg/dL Plasma Lactic Acid Augustin (0.7-2.0) mmol/L Calcium 9.4 (8.4-10.2) mg/dL Total Bilirubin 0.8 (0.2-1.3) mg/dL AST 26 (17-59) U/L ALT 17 (4-49) U/L Alkaline Phosphatase 66 (38-126) U/L Total Protein 7.1 (6.3-8.2) g/dL Albumin 4.5 (3.5-5.0) g/dL Urine Color Colorless Urine Appearance Clear (Clear) Urine pH 6.5 (5.0-8.0) Ur Specific [place] 1.012 (1.001-1.035) Urine Protein Trace H (Negative) Urine Glucose (UA) Negative (Negative) Urine Ketones Negative (Negative) Urine Blood Negative (Negative) Urine Nitrite Negative (Negative) Urine Bilirubin Negative (Negative) Urine Urobilinogen <2.0 (<2.0) mg/dL Ur Leukocyte Esterase Negative (Negative) Influenza Type A (PCR) (Not Detectd) Influenza Type B (PCR) (Not Detectd) RSV (PCR) (Not Detectd) SARS-CoV-2 (PCR) (Not Detectd) 11/13/24 11/13/24 Range/Units 15:16 15:17 WBC (4.50-10.00) 10*3/uL RBC (4.40-5.60) 10*6/uL Hgb (13.0-17.0) g/dL Hct (39.6-50.0) % MCV (80.0-97.0) fL MCH (27.0-32.0) pg MCHC (32.0-37.0) g/dL Plt Count (140-440) 10*3/uL MPV (9.5-12.2) fL Immature Gran % (Auto) % Neutrophils % % Lymphocytes % % Monocytes % % Eosinophils % % Basophils % % Immature Gran # (0.00-0.04) 10*3/uL Neutrophils # (1.80-7.70) 10*3/uL Lymphocytes # (0.90-5.00) 10*3/uL Monocytes # (0.20-1.00) 10*3/uL Eosinophils # (0.04-0.35) 10*3/uL Basophils # (0.00-0.10) 10*3/uL Sodium (137-145) mmol/L Potassium (3.5-5.1) mmol/L Chloride (98-107) mmol/L Carbon Dioxide (22-30) mmol/L Anion Gap mmol/L BUN (9-20) mg/dL Creatinine (0.66-1.25) mg/dL Est GFR (CKD-EPI)AfAm (>60 ml/min/1.73 sqM) Est GFR (CKD-EPI)NonAf (>60 ml/min/1.73 sqM) Glucose (74-99) mg/dL Plasma Lactic Acid Augustin 1.7 (0.7-2.0) mmol/L Calcium (8.4-10.2) mg/dL Total Bilirubin (0.2-1.3) mg/dL AST (17-59) U/L ALT (4-49) U/L Alkaline Phosphatase (38-126) U/L Total Protein (6.3-8.2) g/dL Albumin (3.5-5.0) g/dL Urine Color Urine Appearance (Clear) Urine pH (5.0-8.0) Ur Specific [place] (1.001-1.035) Urine Protein (Negative) Urine Glucose (UA) (Negative) Urine Ketones (Negative) Urine Blood (Negative) Urine Nitrite (Negative) Urine Bilirubin (Negative) Urine Urobilinogen (<2.0) mg/dL Ur Leukocyte Esterase (Negative) Influenza Type A (PCR) Not Detected (Not Detectd) Influenza Type B (PCR) Not Detected (Not Detectd) RSV (PCR) Not Detected (Not Detectd) SARS-CoV-2 (PCR) Not Detected (Not Detectd) Disposition Clinical Impression: Fever Disposition: HOME SELF-CARE Condition: Stable Instructions (If sedation given, give patient instructions): Fever in Adults (ED) Additional Instructions: [id number] Tylenol or Motrin as needed. Please do follow-up with your primary care physician in the next couple of days for recheck. Return for difficulty breathing, uncontrolled fevers, abdominal pain, rash, change or wors ening symptoms or any other concerns. Is patient prescribed a controlled substance at d/c from ED?: No Referrals: Fifi Travis DO [Primary Care Provider] - 1-2 days Time of Disposition: 17:26
[2024-11-13 15:59] LABS: Appearance,Urine Clear (Clear); Bilirubin,Urine Negative (Negative); Blood,Urine Negative (Negative); Color,Urine Colorless; Glucose,Urine (UA) Negative (Negative); Ketones,Urine Negative (Negative); Leukocyte Esterase,Urine Negative (Negative); Nitrite,Urine Negative (Negative); PH, Urine 6.5 (5.0-8.0); Protein,Urine Trace (Negative); Specific Gravity,Urine 1.012 (1.001-1.035); Urobilinogen,Urine <2.0 mg/dL (<2.0)
[2024-11-13 16:08] LABS: ALT 17 U/L (4-49); AST 26 U/L (17-59); African American GFR (CKD) >90 (>60 ml/min/1.73 sqM); Albumin 4.5 g/dL (3.5-5.0); Alkaline Phosphatase 66 U/L (38-126); Anion Gap 10 mmol/L; Blood Urea Nitrogen 15 mg/dL (9-20); Calcium 9.4 mg/dL (8.4-10.2); Carbon Dioxide 25 mmol/L (22-30); Chloride 102 mmol/L (98-107); Glucose 124 mg/dL (74-99); Non-African American GFR(CKD) >90 (>60 ml/min/1.73 sqM); Sodium 137 mmol/L (137-145); Total Bilirubin 0.8 mg/dL (0.2-1.3); Total Protein 7.1 g/dL (6.3-8.2)
[2024-11-13] MEDS: LORazepam 1 MG TAB PO STA (16:16)
[2024-11-13] MEDS: GABAPENTIN 300 MG CAP PO STA (16:16)
--- NOTE | 2024-11-13 16:17 | XR ---
EXAMINATION TYPE: XR chest 2V DATE OF EXAM: 11/13/2024 4:01 PM COMPARISON: 12/22/2021 . CLINICAL INDICATION: Male, 54 years old with history of fever, TECHNIQUE: XR chest 2V view(s) obtained. FINDINGS: The heart size is normal. The pulmonary vasculature is normal. The lungs are clear. Old right distal clavicular resection or erosion is present, unchanged IMPRESSION: 1. No acute pulmonary process. [facility], , 11/13/2024 4:15 PM
[2024-11-13 16:28] LABS: Influenza A Not Detected (Not Detectd); Influenza B Not Detected (Not Detectd); RSV Not Detected (Not Detectd)
[2024-11-13 17:08] VITALS: RESP 16
[2024-11-13 17:43] VITALS: BP 117/81; PULSE 102; TEMP 98.9
== END 2024-11-13 23:57 | disposition home or self-care (01) ==
LOC: EC 14:28
DX: R50.9 Fever, unspecified (principal)
CPT/HCPCS: 36415; 71046; 80053; 81003; 83605; 85025; 87636; 96360; 99284